=== PATIENT | female | born 1960 | race Caucasian/White ===

== ENCOUNTER 2016-05-09 20:19 | Emergency (ER) | payer OTHER ==
[~2016-05-09] VITALS: Ht 165.1 cm; Wt 91.2 kg
[2016-05-09] MEDS ORDERED: OMEP40CA2 PO (21:06)
[2016-05-09] MEDS ORDERED: LEVO125T3 PO (21:06)
[2016-05-09] MEDS ORDERED: ATOR1TAB21 PO (21:06)
[2016-05-09] MEDS ORDERED: TOUJ1.2I SUBQ (21:06)
[2016-05-09] MEDS ORDERED: METF1000 (21:06)
[2016-05-09] MEDS ORDERED: NS 1,000 ML IV ONE ×2 (22:30→23:45)
[2016-05-09 22:40] LABS: VENOUS BASE EXCESS 0.8 (-2.0-2.0); VENOUS O2 SATURATION 79.5 % (60.0-80.0); VENOUS PARTIAL PRESSURE O2 45.1 mmHg (30.0-50.0); VENOUS STANDARD HCO3 24.7 MEQ/L; VENOUS TOTAL CO2 27.6 MEQ/L (24.0-28.0)
[2016-05-09 22:42] LABS: BASO # 0.1 K/mm3 (0.0-0.2); BASO % 0.9 % (0.0-1.0); EOS # 0.1 K/mm3 (0.0-0.50); EOS % 1.7 % (0.0-3.0); LARGE UNSTAINED CELL # 0.1 K/mm3 (0.0-0.4); LARGE UNSTAINED CELL % 1.6 % (0.0-4.0); LYMPH # 2.2 K/mm3 (1.5-4.5); LYMPH % 27.6 % (24.0-44.0); MEAN CORPUSCULAR HEMOGLOBIN 29.9 pg (27.0-33.0); MEAN CORPUSCULAR HGB CONC 32.4 g/dl (32.0-36.5); MEAN CORPUSCULAR VOLUME 92.5 fl (80.0-96.0); MONO # 0.3 K/mm3 (0.0-0.8); MONO % 4.2 % (0.0-5.0); NEUTROPHILS % 64.1 % (36.0-66.0); PLATELET COUNT, AUTOMATED 203 k/mm3 (150-450); RED CELL DISTRIBUTION WIDTH 13.4 % (11.5-14.5); WHITE BLOOD COUNT 7.8 K/mm3 (4.0-10.0)
[2016-05-09 23:16] LABS: CREATININE FOR GFR 1.19 MG/DL (0.55-1.02); GLOMERULAR FILTRATION RATE 49.8 (>51); POTASSIUM SERUM 3.7 MEQ/L (3.5-5.1)
[2016-05-09] MEDS ORDERED: HumuLIN R (REGULAR) INSULIN (NovoLIN R) **100U/ML** PER UNIT IV ONE (23:45)
[2016-05-10] MEDS ORDERED: NOVOINJ12 SC (01:52)
[2016-05-10] MEDS ORDERED: [UNRECOGNIZED DRUG - CODE] XX (01:52)
[2016-05-10] MEDS ORDERED: HumaLOG INSULIN (NovoLOG) PER UNIT SC ONE (02:00)
[2016-05-10 02:06] VITALS: BP 130/74
== END 2016-05-10 03:01 | disposition home or self-care (01) ==
LOC: M ED 22:17
DX: E11.65 Type 2 diabetes mellitus with hyperglycemia (principal); Z79.4 Long term (current) use of insulin; Z88.2 Allergy status to sulfonamides; Z79.84 Long term (current) use of oral hypoglycemic drugs; Z79.899 Other long term (current) drug therapy; E26.9 Hyperaldosteronism, unspecified; E03.9 Hypothyroidism, unspecified; M19.90 Unspecified osteoarthritis, unspecified site

== ENCOUNTER → 2016-08-20 | Outpatient (CLI) | payer OTHER ==
[~2016-08-20] MED LIST: ATOR1TAB21 PO; LEVO125T3 PO; METF1000; NOVOINJ12 SC; OMEP40CA2 PO; TOUJ1.2I SUBQ; [UNRECOGNIZED DRUG - CODE] XX
--- NOTE | 2016-08-21 02:37 | REP ---
Clinical: Pain. Technique: AP, lateral, bilateral oblique views of the right foot. Findings: Orthopedic hardware including screw through the first metatarsal bone and orthopedic stable through the calcaneus identified without evidence for lucency or periosteal reaction to suggest inflammatory changes. The remainder of the examination appears relatively normal. Small amount of calcification identified in the plantar fascia adjacent to a moderate calcaneal heal spur. Impression: 1. Orthopedic hardware appears normal. 2. Moderate calcaneal heal spur and small amount of calcification in the plantar fascia may reflect underlying degenerative change/ plantar fasciitis. Signed by Dave Us MD 08/21/2016 02:29 A
== END ==
LOC: M RAD 14:36
PROVIDERS: ATTEND Family Medicine Addiction Medicine
DX: M77.31 Calcaneal spur, right foot (principal); M79.671 Pain in right foot; Z98.890 Other specified postprocedural states

== ENCOUNTER 2016-09-11 17:02 | Emergency (ER) | payer OTHER ==
[~2016-09-11] VITALS: Ht 162.6 cm; Wt 98.4 kg
[~2016-09-11 17:02] MED LIST changes: -LEVO125T3 PO; +LEVO125T4 PO; -METF1000; +METF10004
[2016-09-11] MEDS ORDERED: ROPI0.25 PO (17:15)
[2016-09-11] MEDS ORDERED: TRAZ50TA11 PO (17:15)
[2016-09-11] MEDS ORDERED: NAPR500T PO (18:43)
[2016-09-11 18:58] VITALS: BP 140/90
--- NOTE | 2016-09-11 19:00 | REP ---
RIGHT KNEE, FIVE VIEWS: HISTORY: Pain. There is no acute fracture or dislocation. There is narrowing of the joint spaces with associated osteophyte formation. There is slight lateral subluxation of the patella. IMPRESSION: Degenerative change as described above. Signed by Ney Benjamin MD 09/11/2016 07:19 P
[2017-01-08] MEDS ORDERED: CLIN150C14 PO (15:59)
== END 2016-09-11 19:04 | disposition home or self-care (01) ==
LOC: M ED 17:02
DX: S83.91XA Sprain of unspecified site of right knee, initial encounter (principal); E11.9 Type 2 diabetes mellitus without complications; K21.9 Gastro-esophageal reflux disease without esophagitis; X58.XXXA Exposure to other specified factors, initial encounter; Y92.89 Other specified places as the place of occurrence of the external cause; Y93.89 Activity, other specified; Y99.9 Unspecified external cause status

== ENCOUNTER 2016-09-28 18:23 | Emergency (ER) | payer OTHER ==
[~2016-09-28] VITALS: Ht 162.6 cm; Wt 101.6 kg
[~2016-09-28 18:23] MED LIST changes: +NAPR500T PO; +ROPI0.25 PO; +TRAZ50TA11 PO
[2016-09-28 19:01] LABS: BASO % 0.2 % (0.0-1.0); EOS # 0.2 K/mm3 (0.0-0.50); EOS % 2.1 % (0.0-3.0); LARGE UNSTAINED CELL % 0.3 % (0.0-4.0); LYMPH # 0.6 K/mm3 (1.5-4.5); LYMPH % 4.7 % (24.0-44.0); MEAN CORPUSCULAR HEMOGLOBIN 29.6 pg (27.0-33.0); MEAN CORPUSCULAR HGB CONC 33.5 g/dl (32.0-36.5); MEAN CORPUSCULAR VOLUME 88.6 fl (80.0-96.0); MONO # 0.2 K/mm3 (0.0-0.8); MONO % 1.7 % (0.0-5.0); NEUTROPHILS # 10.6 K/mm3 (1.8-7.7); NEUTROPHILS % 91.1 % (36.0-66.0); PLATELET COUNT, AUTOMATED 288 k/mm3 (150-450); WHITE BLOOD COUNT 11.6 K/mm3 (4.0-10.0)
[2016-09-28 19:28] LABS: ALBUMIN 3.6 GM/DL (3.2-5.2); ALBUMIN/GLOBULIN RATIO 1.03 (1.00-1.93); ALKALINE PHOSPHATASE 95 U/L (45-117); ALT/SGPT 14 U/L (12-78); ANION GAP 9 MEQ/L (8-16); AST/SGOT 10 U/L (15-37); BILIRUBIN,DIRECT 0.2 MG/DL (0.0-0.2); BILIRUBIN,TOTAL 0.6 MG/DL (0.2-1.0); BLOOD UREA NITROGEN 24 MG/DL (7-18); CALCIUM LEVEL 8.9 MG/DL (8.5-10.1); CARBON DIOXIDE LEVEL 24 MEQ/L (21-32); CHLORIDE LEVEL 103 MEQ/L (98-107); CREATININE FOR GFR 0.95 MG/DL (0.55-1.02); GLOMERULAR FILTRATION RATE > 60.0 (>51); GLUCOSE, FASTING 169 MG/DL (70-105); POTASSIUM SERUM 3.7 MEQ/L (3.5-5.1); SODIUM LEVEL 136 MEQ/L (136-145); TOTAL PROTEIN 7.1 GM/DL (6.4-8.2)
[2016-09-28] MEDS ORDERED: GI COCKTAIL 50ML BTL(HYOSCYAMINE/MAALOX/LIDOCAINE VISCOUS)(1:3:1) PO ONE (20:00)
--- NOTE | 2016-09-28 20:13 | ECGEPIP ---
Stationary ECG Study [facility] - ED Test Date: 2016-09-28 Pat Name: LUIS CUMMINGS Department: Room: - Gender: F Helper Shear Operator: CamaraB: 1960 Requested By: Adelaide Roberto Order Number: [id number] Reading MD: Adelaide Roberto Measurements Intervals [place] Rate: 98 P: 37 WV: 120 QRS: -60 QRSD: 84 T: 15 QT: 351 QTc: 449 Interpretive Statements SINUS RHYTHM LOW QRS VOLTAGE IN PRECORDIAL LEADS POSSIBLE RIGHT VENTRICULAR CONDUCTION DELAY LEFT ANTERIOR FASCICULAR BLOCK POSSIBLE ANTERIOR MYOCARDIAL INFARCTION, OF INDETERMINATE AGE INCREASED RATE 07/18/12 Electronically Signed On 09-28-2016 20:12:55 EDT by Adelaide Roberto
[2016-09-28] MEDS ORDERED: ONDANSETRON 4MG/2ML VIAL (J2405) IV ONE (21:00)
[2016-09-28] MEDS ORDERED: ONDANSETRON 4MG/2ML VIAL (J2405) As Ordered ONE (21:02)
[2016-09-28] MEDS ORDERED: ZOFR4TAB3 PO (21:34)
[2016-09-28 22:03] VITALS: BP 127/60
--- NOTE | 2016-09-29 07:57 | REP ---
SINGLE AP CHEST: COMPARISON: 07/19/2012. There is no evidence of acute infiltrate. No pleural effusion is seen. The heart is normal in size. The mediastinal silhouette is unremarkable. The visualized osseous structures are intact. IMPRESSION: No acute pulmonary disease. Signed by Sudeep Quiroga MD 09/29/2016 07:24 P
[2017-01-08] MEDS ORDERED: CLIN150C14 PO (15:59)
== END 2016-09-28 22:12 | disposition home or self-care (01) ==
LOC: M ED 18:23
DX: K21.9 Gastro-esophageal reflux disease without esophagitis (principal); E11.9 Type 2 diabetes mellitus without complications; Z88.2 Allergy status to sulfonamides; Z79.4 Long term (current) use of insulin; Z79.899 Other long term (current) drug therapy

== ENCOUNTER → 2016-12-04 | Outpatient (REF) | payer OTHER ==
[~2016-12-04] MED LIST changes: +CLIN150C14 PO; +ZOFR4TAB3 PO
[2016-12-04 19:20] LABS: ALBUMIN 3.2 GM/DL (3.2-5.2); ALBUMIN/GLOBULIN RATIO 0.94 (1.00-1.93); ALKALINE PHOSPHATASE 111 U/L (45-117); ALT/SGPT 17 U/L (12-78); ANION GAP 5 MEQ/L (8-16); AST/SGOT 15 U/L (15-37); BILIRUBIN,TOTAL 0.4 MG/DL (0.2-1.0); BLOOD UREA NITROGEN 11 MG/DL (7-18); CALCIUM LEVEL 8.7 MG/DL (8.5-10.1); CARBON DIOXIDE LEVEL 28 MEQ/L (21-32); CHLORIDE LEVEL 104 MEQ/L (98-107); CHOLESTEROL LEVEL 141 MG/DL (<200); CREATININE FOR GFR 0.88 MG/DL (0.55-1.02); GLOMERULAR FILTRATION RATE > 60.0 (>51); GLUCOSE, FASTING 148 MG/DL (70-105); POTASSIUM SERUM 3.8 MEQ/L (3.5-5.1); SODIUM LEVEL 137 MEQ/L (136-145); TOTAL PROTEIN 6.6 GM/DL (6.4-8.2); TRIGLYCERIDES LEVEL 97 MG/DL (<150)
== END ==
LOC: M LAB REF 16:21
PROVIDERS: ATTEND Family Medicine Addiction Medicine
DX: E11.9 Type 2 diabetes mellitus without complications (principal)

== ENCOUNTER → 2017-01-22 | Outpatient (CLI) | payer OTHER ==
--- NOTE | 2017-01-22 14:15 | REPMRS ---
Patient History The patient states she has not had a clinical breast exam in over a year. Patient had first child at age 33. Family history of prostate cancer in father and colorectal cancer in sister at age 56. Taking unspecified hormones for 43 years. Digital Mammo Screening Bilat: January 22, 2017 - Exam #: [id number] Bilateral CC and MLO view(s) were taken. Technologist: Katina Pham, Technologist Prior study comparison: 2016, digital bilateral screening mammo. FINDINGS: There are scattered fibroglandular densities. There is a fairly symmetric fibroglandular pattern in both breasts. There has been no interval development of masses, areas of architectural distortion or clusters of microcalcifications typical of malignancy. ASSESSMENT: BI-RADS/ACR category 2 mammogram. Benign finding(s). Recommendation Routine screening mammogram of both breasts in 1 year (for women over age 40). This mammogram was interpreted with the aid of an FDA-approved computer-aided dectection system. Electronically Signed By: Sudeep Quiroga MD 01/22/17 [id number]
== END ==
LOC: M RAD 13:21
PROVIDERS: ATTEND Family Medicine Addiction Medicine
DX: Z12.31 Encounter for screening mammogram for malignant neoplasm of breast (principal)

== ENCOUNTER → 2017-04-04 | Outpatient (CLI) | payer OTHER | LOC: M RAD 12:52 | DX: E04.9 Nontoxic goiter, unspecified (principal) | CPT/HCPCS: 76536 ==

== ENCOUNTER → 2017-04-18 | Outpatient (CLI) | payer OTHER | LOC: M RAD 07:35 | DX: E04.9 Nontoxic goiter, unspecified (principal) | CPT/HCPCS: 70490 ==

== ENCOUNTER → 2017-05-06 | Outpatient (REF) | payer OTHER, MEDICAID ==
[2017-05-06 19:55] LABS: ALBUMIN 3.7 GM/DL (3.2-5.2); ALBUMIN/GLOBULIN RATIO 1.23 (1.00-1.93); ALKALINE PHOSPHATASE 140 U/L (45-117); ALT/SGPT 17 U/L (12-78); ANION GAP 9 MEQ/L (8-16); AST/SGOT 11 U/L (7-37); BILIRUBIN,TOTAL 0.4 MG/DL (0.2-1.0); BLOOD UREA NITROGEN 15 MG/DL (7-18); CALCIUM LEVEL 8.5 MG/DL (8.5-10.1); CARBON DIOXIDE LEVEL 26 MEQ/L (21-32); CHLORIDE LEVEL 103 MEQ/L (98-107); CHOLESTEROL LEVEL 156 MG/DL (<200); CHOLESTEROL RISK RATIO 4.105 (<5); CREATININE FOR GFR 1.04 MG/DL (0.55-1.30); GLOMERULAR FILTRATION RATE 57.9 (>51); HDL CHOLESTEROL 38 MG/DL (>40); NON-HDL-C 118 MG/DL; POTASSIUM SERUM 3.8 MEQ/L (3.5-5.1); SODIUM LEVEL 138 MEQ/L (136-145); THYROXINE (T4) 10.8 UG/DL (4.5-12.0); TOTAL PROTEIN 6.7 GM/DL (6.4-8.2); TRIGLYCERIDES LEVEL 175 MG/DL (<150)
[2017-05-06 20:02] LABS: GLUCOSE, FASTING 488 MG/DL (70-100)
[2017-05-06 21:22] LABS: ESTIMATED AVERAGE GLUCOSE 280 MG/DL (60-110); HEMOGLOBIN A1c 11.4 %
== END ==
LOC: M LAB REF 17:43
DX: E11.9 Type 2 diabetes mellitus without complications (principal); E04.9 Nontoxic goiter, unspecified

== ENCOUNTER 2017-06-01 21:19 | Emergency (ER) | payer OTHER, MEDICAID ==
[2017-06-01 23:07] LABS: INFLUENZA A AMPLIFICATION NEGATIVE (NEGATIVE); INFLUENZA B AMPLIFICATION NEGATIVE (NEGATIVE)
== END 2017-06-02 00:11 | disposition home or self-care (01) ==
LOC: M ED 06-02 00:11
DX: J02.9 Acute pharyngitis, unspecified (principal); I10 Essential (primary) hypertension; E07.9 Disorder of thyroid, unspecified; E78.9 Disorder of lipoprotein metabolism, unspecified; K21.9 Gastro-esophageal reflux disease without esophagitis; Z79.899 Other long term (current) drug therapy; Z79.890 Hormone replacement therapy; Z79.4 Long term (current) use of insulin; Z88.2 Allergy status to sulfonamides
CPT/HCPCS: 71046

== ENCOUNTER 2017-06-24 12:06 | Inpatient (IN) | payer OTHER, MEDICAID ==
[2017-06-24 12:38] LABS: BASO % 0.5 % (0.0-1.0); EOS # 0.2 10^3/uL (0.0-0.50); EOS % 2.1 % (0.0-3.0); HEMATOCRIT 41.5 % (36.0-47.0); HEMOGLOBIN 13.6 g/dl (12.0-15.5); IMMATURE GRANULOCYTE % 0.4 % (0-3.0); LYMPH # 1.4 10^3/uL (1.5-4.5); LYMPH % 17.6 % (24.0-44.0); MEAN CORPUSCULAR HEMOGLOBIN 28.4 pg (27.0-33.0); MEAN CORPUSCULAR HGB CONC 32.8 g/dl (32.0-36.5); MEAN CORPUSCULAR VOLUME 86.6 fl (80.0-96.0); MONO # 0.4 10^3/uL (0.0-0.8); MONO % 5.7 % (0.0-5.0); NEUTROPHILS # 5.7 10^3/uL (1.8-7.7); NEUTROPHILS % 73.7 % (36.0-66.0); PLATELET COUNT, AUTOMATED 233 10^3/uL (150-450); RED BLOOD COUNT 4.79 10^6/uL (4.00-5.40); RED CELL DISTRIBUTION WIDTH 14.3 % (11.5-14.5); WHITE BLOOD COUNT 7.8 10^3/uL (4.0-10.0)
[2017-06-24 13:09] LABS: ALBUMIN 3.2 GM/DL (3.2-5.2); ALBUMIN/GLOBULIN RATIO 0.97 (1.00-1.93); ALKALINE PHOSPHATASE 131 U/L (45-117); ALT/SGPT 16 U/L (12-78); ANION GAP 11 MEQ/L (8-16); AST/SGOT 11 U/L (7-37); BILIRUBIN,DIRECT 0.1 MG/DL (0.0-0.2); BILIRUBIN,TOTAL 0.6 MG/DL (0.2-1.0); BLOOD UREA NITROGEN 10 MG/DL (7-18); CALCIUM LEVEL 8.5 MG/DL (8.5-10.1); CARBON DIOXIDE LEVEL 23 MEQ/L (21-32); CHLORIDE LEVEL 106 MEQ/L (98-107); CPK CREATINE PHOSPHOKINASE 35 U/L (26-192); GLUCOSE, FASTING 296 MG/DL (70-100); POTASSIUM SERUM 3.7 MEQ/L (3.5-5.1); SODIUM LEVEL 140 MEQ/L (136-145); TOTAL PROTEIN 6.5 GM/DL (6.4-8.2); TROPONIN I < 0.02 NG/ML (< 0.10)
[2017-06-24 13:14] LABS: CK-MB VALUE MASS < 1.0 NG/ML (<3.6); CREATININE FOR GFR 1.06 MG/DL (0.55-1.30); GLOMERULAR FILTRATION RATE 56.7 (>51); MB/CK RELATIVE INDEX 2.85 (< OR =4)
[2017-06-24] MEDS ORDERED: ISOVUE-370 76% 100ML VIAL (Q9967) As Ordered (14:59)
[2017-06-24] MEDS ORDERED: GLUCOSE 4 GM CHEW TABLET PO (16:15)
[2017-06-24] MEDS ORDERED: GLUCAGON FOR INJ 1 MG VIAL (J1610) SC (16:15)
[2017-06-24] MEDS ORDERED: DEXTROSE 50% 50 ML SYRINGE IV (16:15)
[2017-06-24] MEDS ORDERED: ACETAMINOPHEN TAB 650MG DOSE (2X325MG) PO (16:45)
[2017-06-24] MEDS ORDERED: ONDANSETRON 4MG/2ML VIAL (J2405) IV (16:45)
[2017-06-24 17:00] LABS: FREE THYROXINE INDEX 3.6 % (1.3-4.8); NT-PRO BNP 205 PG/ML (<125); T UPTAKE 33 % (30-39); THYROXINE (T4) 10.8 UG/DL (4.5-12.0)
[2017-06-24] MEDS: HumaLOG INSULIN (NovoLOG) PER UNIT SC ×2 (17:30→21:00)
[2017-06-24] MEDS: APIXABAN 5 MG TAB (ELIQUIS) PO ×2 (17:54→21:26)
[2017-06-24 18:31] LABS: CK-MB VALUE MASS < 1.0 NG/ML (<3.6); CPK CREATINE PHOSPHOKINASE 26 U/L (26-192); MB/CK RELATIVE INDEX 3.84 (< OR =4); TROPONIN I < 0.02 NG/ML (< 0.10)
[2017-06-24 18:38] LABS: INR 1.04; PROTHROMBIN TIME 13.7 SECONDS (12.4-14.5)
[2017-06-24 18:39] LABS: PARTIAL THROMBOPLASTIN TIME 26.7 SECONDS (26.8-37.9)
[2017-06-24] MEDS ORDERED: SLF 3 ML SYR IV (19:00)
[2017-06-24 21:13] LABS: BEDSIDE GLUCOSE 197 MG/DL (70-105)
[2017-06-24] MEDS: rOPINIRole 0.25 MG TAB(REQUIP) PO (21:26)
[2017-06-24] MEDS: traZODone 50 MG TAB PO (21:26)
[2017-06-24] MEDS: SENOKOT S TAB PO (21:26)
[2017-06-24] MEDS: LEVEMIR (INSULIN DETEMIR) 1 UNITS/0.01ML SC (21:27)
[2017-06-24] MEDS: SLF 3 ML SYR IV (22:00)
[2017-06-24 22:10] LABS: BEDSIDE GLUCOSE 203 MG/DL (70-105)
[2017-06-25] MEDS: LEVOTHYROXINE 125MCG TABLET (0.125MG) PO (05:13)
[2017-06-25] MEDS: SLF 3 ML SYR IV ×3 (05:14→21:39)
[2017-06-25 06:11] LABS: HEMATOCRIT 39.3 % (36.0-47.0); HEMOGLOBIN 12.9 g/dl (12.0-15.5); MEAN CORPUSCULAR HEMOGLOBIN 28.4 pg (27.0-33.0); MEAN CORPUSCULAR HGB CONC 32.8 g/dl (32.0-36.5); MEAN CORPUSCULAR VOLUME 86.6 fl (80.0-96.0); PLATELET COUNT, AUTOMATED 194 10^3/uL (150-450); RED BLOOD COUNT 4.54 10^6/uL (4.00-5.40); RED CELL DISTRIBUTION WIDTH 14.3 % (11.5-14.5); WHITE BLOOD COUNT 7.5 10^3/uL (4.0-10.0)
[2017-06-25 06:21] LABS: ANION GAP 7 MEQ/L (8-16); BLOOD UREA NITROGEN 13 MG/DL (7-18); CALCIUM LEVEL 8.4 MG/DL (8.5-10.1); CARBON DIOXIDE LEVEL 25 MEQ/L (21-32); CHLORIDE LEVEL 109 MEQ/L (98-107); CREATININE FOR GFR 0.88 MG/DL (0.55-1.30); GLOMERULAR FILTRATION RATE > 60.0 (>51); GLUCOSE, FASTING 212 MG/DL (70-100); MAGNESIUM LEVEL 1.6 MG/DL (1.8-2.4); POTASSIUM SERUM 3.5 MEQ/L (3.5-5.1); SODIUM LEVEL 141 MEQ/L (136-145)
[2017-06-25] MEDS: ATORVASTATIN 20 MG TAB PO (08:45)
[2017-06-25] MEDS: MAG SULF 1GM/100ML (MAG RUN) 1 GM in APPROPRIATE DILUENT 1 EA IV ×2 (08:45→10:14)
[2017-06-25] MEDS: HumaLOG INSULIN (NovoLOG) PER UNIT SC ×4 (08:45→20:49)
[2017-06-25] MEDS: APIXABAN 5 MG TAB (ELIQUIS) PO ×2 (08:46→20:50)
[2017-06-25] MEDS: SENOKOT S TAB PO ×2 (08:46→20:50)
[2017-06-25] MEDS: OMEPRAZOLE 20 MG CAP PO (08:46)
[2017-06-25 11:55] LABS: BEDSIDE GLUCOSE 368 MG/DL (70-105)
[2017-06-25 17:28] LABS: BEDSIDE GLUCOSE 301 MG/DL (70-105)
[2017-06-25] MEDS: LEVEMIR (INSULIN DETEMIR) 1 UNITS/0.01ML SC (20:49)
[2017-06-25] MEDS: rOPINIRole 0.25 MG TAB(REQUIP) PO (20:50)
[2017-06-25] MEDS: traZODone 50 MG TAB PO (20:50)
[2017-06-25 20:59] LABS: BEDSIDE GLUCOSE 327 MG/DL (70-105)
[2017-06-26 05:57] LABS: HEMATOCRIT 36.5 % (36.0-47.0); HEMOGLOBIN 12.1 g/dl (12.0-15.5); MEAN CORPUSCULAR HEMOGLOBIN 28.5 pg (27.0-33.0); MEAN CORPUSCULAR HGB CONC 33.2 g/dl (32.0-36.5); MEAN CORPUSCULAR VOLUME 85.9 fl (80.0-96.0); PLATELET COUNT, AUTOMATED 182 10^3/uL (150-450); RED BLOOD COUNT 4.25 10^6/uL (4.00-5.40); RED CELL DISTRIBUTION WIDTH 14.3 % (11.5-14.5); WHITE BLOOD COUNT 6.6 10^3/uL (4.0-10.0)
[2017-06-26] MEDS: LEVOTHYROXINE 125MCG TABLET (0.125MG) PO (06:03)
[2017-06-26] MEDS: SLF 3 ML SYR IV ×3 (06:03→21:40)
[2017-06-26 06:19] LABS: ANION GAP 6 MEQ/L (8-16); BLOOD UREA NITROGEN 13 MG/DL (7-18); CALCIUM LEVEL 8.1 MG/DL (8.5-10.1); CARBON DIOXIDE LEVEL 27 MEQ/L (21-32); CHLORIDE LEVEL 108 MEQ/L (98-107); CREATININE FOR GFR 0.94 MG/DL (0.55-1.30); GLOMERULAR FILTRATION RATE > 60.0 (>51); GLUCOSE, FASTING 254 MG/DL (70-100); MAGNESIUM LEVEL 1.9 MG/DL (1.8-2.4); POTASSIUM SERUM 3.6 MEQ/L (3.5-5.1); SODIUM LEVEL 141 MEQ/L (136-145)
[2017-06-26] MEDS: SENOKOT S TAB PO ×2 (08:25→21:40)
[2017-06-26] MEDS: OMEPRAZOLE 20 MG CAP PO (08:25)
[2017-06-26] MEDS: HumaLOG INSULIN (NovoLOG) PER UNIT SC ×4 (08:25→21:39)
[2017-06-26] MEDS: ATORVASTATIN 20 MG TAB PO (08:25)
[2017-06-26] MEDS: APIXABAN 5 MG TAB (ELIQUIS) PO ×2 (08:25→21:40)
[2017-06-26 11:53] LABS: BEDSIDE GLUCOSE 263 MG/DL (70-105)
[2017-06-26 16:49] LABS: BEDSIDE GLUCOSE 277 MG/DL (70-105)
[2017-06-26 21:31] LABS: BEDSIDE GLUCOSE 300 MG/DL (70-105)
[2017-06-26] MEDS: LEVEMIR (INSULIN DETEMIR) 1 UNITS/0.01ML SC (21:39)
[2017-06-26] MEDS: rOPINIRole 0.25 MG TAB(REQUIP) PO (21:40)
[2017-06-26] MEDS: traZODone 50 MG TAB PO (21:40)
[2017-06-27 00:06] LABS: ANTI THROMBIN 3 ANTIGEN IMMUNO 85 % (72-124); ANTI THROMBIN 3 FUNCT ACTIVITY 97 % (75-135); PROTEIN C FUNCTIONAL ACTIVITY 133 % (73-180); PROTEIN S FUNCTIONAL ACTIVITY 103 % (63-140)
[2017-06-27] MEDS: SLF 3 ML SYR IV (05:01)
[2017-06-27] MEDS: LEVOTHYROXINE 125MCG TABLET (0.125MG) PO (05:01)
[2017-06-27 05:51] LABS: HEMATOCRIT 36.2 % (36.0-47.0); HEMOGLOBIN 11.9 g/dl (12.0-15.5); MEAN CORPUSCULAR HGB CONC 32.9 g/dl (32.0-36.5); MEAN CORPUSCULAR VOLUME 85.2 fl (80.0-96.0); PLATELET COUNT, AUTOMATED 172 10^3/uL (150-450); RED BLOOD COUNT 4.25 10^6/uL (4.00-5.40); RED CELL DISTRIBUTION WIDTH 14.4 % (11.5-14.5); WHITE BLOOD COUNT 6.2 10^3/uL (4.0-10.0)
[2017-06-27 06:05] LABS: ANION GAP 5 MEQ/L (8-16); BLOOD UREA NITROGEN 11 MG/DL (7-18); CALCIUM LEVEL 8.1 MG/DL (8.5-10.1); CARBON DIOXIDE LEVEL 26 MEQ/L (21-32); CHLORIDE LEVEL 107 MEQ/L (98-107); CREATININE FOR GFR 0.77 MG/DL (0.55-1.30); GLOMERULAR FILTRATION RATE > 60.0 (>51); GLUCOSE, FASTING 231 MG/DL (70-100); MAGNESIUM LEVEL 1.9 MG/DL (1.8-2.4); POTASSIUM SERUM 3.4 MEQ/L (3.5-5.1); SODIUM LEVEL 138 MEQ/L (136-145)
[2017-06-27] MEDS: POTASSIUM CHLORIDE 10 MEQ SR TABLET PO ×2 (06:35→08:39)
[2017-06-27] MEDS ORDERED: POTASSIUM CHLORIDE 10 MEQ SR TABLET PO (06:45)
[2017-06-27] MEDS: HumaLOG INSULIN (NovoLOG) PER UNIT SC ×2 (08:38→12:51)
[2017-06-27] MEDS: APIXABAN 5 MG TAB (ELIQUIS) PO (08:39)
[2017-06-27] MEDS: SENOKOT S TAB PO (08:39)
[2017-06-27] MEDS: OMEPRAZOLE 20 MG CAP PO (08:39)
[2017-06-27] MEDS: ATORVASTATIN 20 MG TAB PO (08:39)
[2017-06-27 13:16] LABS: BEDSIDE GLUCOSE 280 MG/DL (70-105)
[2017-07-01 10:43] LABS: DRVV SCREEN 44.7 SEC
== END 2017-06-27 16:22 | disposition home or self-care (01) | DRG 134 ==
LOC: M PCU 16:35 → M ED 12:06 → M ED INP 16:35 → M PCU 18:28
DX: I26.99 Other pulmonary embolism without acute cor pulmonale (principal); E83.42 Hypomagnesemia; I10 Essential (primary) hypertension; M79.7 Fibromyalgia; E11.9 Type 2 diabetes mellitus without complications; G25.81 Restless legs syndrome; K21.9 Gastro-esophageal reflux disease without esophagitis; Z90.49 Acquired absence of other specified parts of digestive tract; E89.0 Postprocedural hypothyroidism; Z79.4 Long term (current) use of insulin; Z79.899 Other long term (current) drug therapy; Z88.2 Allergy status to sulfonamides

== ENCOUNTER 2017-07-24 14:18 | Emergency (ER) | payer OTHER ==
[2017-07-24] MEDS: KETOROLAC 30 MG/ML VIAL (J1885) IM ×2 (17:02)
== END 2017-07-24 17:58 | disposition home or self-care (01) ==
LOC: M ED 14:18
DX: M76.62 Achilles tendinitis, left leg (principal); M25.772 Osteophyte, left ankle; E11.9 Type 2 diabetes mellitus without complications; I10 Essential (primary) hypertension; M79.7 Fibromyalgia; E03.9 Hypothyroidism, unspecified; Z79.4 Long term (current) use of insulin; Z79.899 Other long term (current) drug therapy; Z88.2 Allergy status to sulfonamides
CPT/HCPCS: J1885

== ENCOUNTER 2017-09-15 14:11 | Emergency (ER) | payer MEDICARE, MEDICAID, OTHER ==
[2017-09-15 15:11] LABS: BASO % 0.7 % (0.0-1.0); EOS # 0.1 10^3/uL (0.0-0.50); IMMATURE GRANULOCYTE % 0.2 % (0-3.0); LYMPH # 1.3 10^3/uL (1.5-4.5); LYMPH % 21.2 % (24.0-44.0); MEAN CORPUSCULAR HEMOGLOBIN 28.2 pg (27.0-33.0); MEAN CORPUSCULAR HGB CONC 32.6 g/dl (32.0-36.5); MEAN CORPUSCULAR VOLUME 86.5 fl (80.0-96.0); MONO # 0.4 10^3/uL (0.0-0.8); MONO % 6.1 % (0.0-5.0); NEUTROPHILS # 4.2 10^3/uL (1.8-7.7); NEUTROPHILS % 70.8 % (36.0-66.0); PLATELET COUNT, AUTOMATED 200 10^3/uL (150-450); RED BLOOD COUNT 4.97 10^6/uL (4.00-5.40); RED CELL DISTRIBUTION WIDTH 14.4 % (11.5-14.5); WHITE BLOOD COUNT 5.9 10^3/uL (4.0-10.0)
[2017-09-15] MEDS: NS 1,000 ML IV ×2 (15:27→17:15)
[2017-09-15 15:29] LABS: ALBUMIN 3.5 GM/DL (3.2-5.2); ALBUMIN/GLOBULIN RATIO 1.17 (1.00-1.93); ALKALINE PHOSPHATASE 125 U/L (45-117); ALT/SGPT 22 U/L (12-78); ANION GAP 12 MEQ/L (8-16); AST/SGOT 13 U/L (7-37); BILIRUBIN,DIRECT 0.2 MG/DL (0.0-0.2); BILIRUBIN,TOTAL 0.6 MG/DL (0.2-1.0); BLOOD UREA NITROGEN 8 MG/DL (7-18); CALCIUM LEVEL 8.3 MG/DL (8.5-10.1); CARBON DIOXIDE LEVEL 22 MEQ/L (21-32); CHLORIDE LEVEL 102 MEQ/L (98-107); CREATININE FOR GFR 1.29 MG/DL (0.55-1.30); LIPASE 164 U/L (73-393); POTASSIUM SERUM 3.7 MEQ/L (3.5-5.1); SODIUM LEVEL 136 MEQ/L (136-145); TOTAL PROTEIN 6.5 GM/DL (6.4-8.2)
[2017-09-15 15:37] LABS: GLUCOSE, FASTING 661 MG/DL (70-100)
[2017-09-15 15:46] LABS: ESTIMATED AVERAGE GLUCOSE 278 MG/DL (60-110); HEMOGLOBIN A1c 11.3 %
[2017-09-15] MEDS: HumuLIN R (REGULAR) INSULIN (NovoLIN R) **100U/ML** PER UNIT IV (15:59)
[2017-09-15 16:42] LABS: BEDSIDE GLUCOSE 421 MG/DL (70-105)
[2017-09-15 19:20] LABS: BEDSIDE GLUCOSE 320 MG/DL (70-105)
[2017-09-15] MEDS: metFORMIN (GLUCOPHAGE) 1000 MG TABLET PO (19:32)
[2017-09-16 09:10] LABS: BEDSIDE GLUCOSE > 600 MG/DL (70-105)
== END 2017-09-15 19:33 | disposition home or self-care (01) ==
LOC: M ED 14:11
DX: E11.65 Type 2 diabetes mellitus with hyperglycemia (principal); Z91.120 Patient's intentional underdosing of medication regimen due to financial hardship; I10 Essential (primary) hypertension; E07.9 Disorder of thyroid, unspecified; M79.7 Fibromyalgia; K21.9 Gastro-esophageal reflux disease without esophagitis; Z88.2 Allergy status to sulfonamides; Z79.899 Other long term (current) drug therapy; Z79.4 Long term (current) use of insulin; Z79.01 Long term (current) use of anticoagulants
CPT/HCPCS: 83690

== ENCOUNTER 2017-09-24 16:02 | Emergency (ER) | payer MEDICARE, MEDICAID ==
[2017-09-24] MEDS: NORCO, ANEXSIA 5/325MG TABLET (HYDROcodone/ACETAMINOPHEN) PO (16:51)
== END 2017-09-24 16:58 | disposition home or self-care (01) ==
LOC: M ED 16:02
DX: L03.011 Cellulitis of right finger (principal); E11.9 Type 2 diabetes mellitus without complications; I10 Essential (primary) hypertension; E78.5 Hyperlipidemia, unspecified; G25.81 Restless legs syndrome; M79.7 Fibromyalgia; K21.9 Gastro-esophageal reflux disease without esophagitis; E03.9 Hypothyroidism, unspecified; Z79.01 Long term (current) use of anticoagulants; Z79.4 Long term (current) use of insulin; Z79.899 Other long term (current) drug therapy; Z88.2 Allergy status to sulfonamides
CPT/HCPCS: 87186

== ENCOUNTER 2017-11-09 14:29 | Emergency (ER) | payer MEDICARE, MEDICAID ==
[2017-11-09 16:34] LABS: HEMATOCRIT 41.3 % (36.0-47.0); HEMOGLOBIN 13.5 g/dl (12.0-15.5); MEAN CORPUSCULAR HEMOGLOBIN 28.4 pg (27.0-33.0); MEAN CORPUSCULAR HGB CONC 32.7 g/dl (32.0-36.5); MEAN CORPUSCULAR VOLUME 86.9 fl (80.0-96.0); PLATELET COUNT, AUTOMATED 202 10^3/uL (150-450); RED BLOOD COUNT 4.75 10^6/uL (4.00-5.40); RED CELL DISTRIBUTION WIDTH 14.2 % (11.5-14.5); WHITE BLOOD COUNT 12.6 10^3/uL (4.0-10.0)
[2017-11-09 16:52] LABS: ANION GAP 8 MEQ/L (8-16); BLOOD UREA NITROGEN 8 MG/DL (7-18); CALCIUM LEVEL 8.6 MG/DL (8.5-10.1); CARBON DIOXIDE LEVEL 26 MEQ/L (21-32); CHLORIDE LEVEL 105 MEQ/L (98-107); CREATININE FOR GFR 1.04 MG/DL (0.55-1.30); GLOMERULAR FILTRATION RATE 57.7 (>51); GLUCOSE, FASTING 296 MG/DL (70-100); POTASSIUM SERUM 3.6 MEQ/L (3.5-5.1); SODIUM LEVEL 139 MEQ/L (136-145)
[2017-11-09] MEDS: CEFTAROLINE FOSAMIL 600 MG in D5W MINI-BAG PLUS 50 ML IV (17:20)
[2017-11-09] MEDS: PERCOCET 5MG/325MG TAB PO (17:20)
[2017-11-09] MEDS: NORCO 5/325MG TABLET (BULK FOR ED) PO (18:37)
== END 2017-11-09 18:39 | disposition home or self-care (01) ==
LOC: M ED 14:29
DX: L03.312 Cellulitis of back [any part except buttock and flank] (principal); E11.9 Type 2 diabetes mellitus without complications; I10 Essential (primary) hypertension; K21.9 Gastro-esophageal reflux disease without esophagitis
CPT/HCPCS: J0712

== ENCOUNTER 2018-06-16 20:06 | Emergency (ER) | payer MEDICARE, MEDICAID ==
[~2018-06-16] VITALS: Ht 167.6 cm; Wt 90.9 kg
[~2018-06-16 20:06] MED LIST changes: +ATEN50TA2 PO; +DOXY-350 PO; +ELIQ5TAB PO; +INSUR SC; +KEFL500C17 PO; +LEVO125T41 PO; +METF10004 PO; +NAPR-837 PO; -NAPR500T PO; +OXYC1TAB23 PO; -ROPI0.25 PO; +ROPI0.253 PO; +TOUJ1.2I SC; +TRAZ-160 PO; -TRAZ50TA11 PO; +ZOFR4TAB14 PO; -ZOFR4TAB3 PO
[2018-06-16 21:22] LABS: BASO % 0.5 % (0.0-1.0); EOS # 0.1 10^3/uL (0.0-0.50); EOS % 1.3 % (0.0-3.0); HEMATOCRIT 41.9 % (36.0-47.0); HEMOGLOBIN 13.7 g/dl (12.0-15.5); LYMPH # 1.8 10^3/uL (1.5-4.5); LYMPH % 28.1 % (24.0-44.0); MEAN CORPUSCULAR HEMOGLOBIN 30.2 pg (27.0-33.0); MEAN CORPUSCULAR HGB CONC 32.7 g/dl (32.0-36.5); MEAN CORPUSCULAR VOLUME 92.5 fl (80.0-96.0); MONO # 0.4 10^3/uL (0.0-0.8); MONO % 5.9 % (0.0-5.0); PLATELET COUNT, AUTOMATED 201 10^3/uL (150-450); RED BLOOD COUNT 4.53 10^6/uL (4.00-5.40); WHITE BLOOD COUNT 6.3 10^3/uL (4.0-10.0)
[2018-06-16 21:52] LABS: CALCIUM LEVEL 8.5 MG/DL (8.5-10.1); CREATININE FOR GFR 1.26 MG/DL (0.55-1.30); GLOMERULAR FILTRATION RATE 46.3 (>51); POTASSIUM SERUM 4.3 MEQ/L (3.5-5.1)
[2018-06-17] MEDS ORDERED: LEVEMIR (INSULIN DETEMIR) 1 UNITS/0.01ML SC ONE (00:15)
[2018-06-17] MEDS ORDERED: NS 1,000 ML IV SCH (00:15)
[2018-06-17] MEDS ORDERED: ACETAMINOPHEN TAB 650MG DOSE (2X325MG) PO ONE (00:15)
[2018-06-17 00:48] VITALS: BP 136/82
--- NOTE | 2018-06-17 07:22 | REP ---
AP pelvis: There are no pelvic fractures. There are pelvic calcifications bilaterally, nonspecific, phleboliths versus ureteral, correlate with symptomatology. The right and left sacroiliac articulations and right left hip articulations are unremarkable. Impression: Calcifications as described. Otherwise, negative AP pelvis. Right hip two views : There is no fracture or dislocation. Mineralization and joint spaces are normal. There are no calcifications or foreign bodies. Impression: Negative right hip . Electronically Signed by Sudeep Guzman MD 06/17/2018 07:14 A
== END 2018-06-17 00:49 | disposition home or self-care (01) ==
LOC: M ED 20:06
DX: M25.551 Pain in right hip (principal); E11.65 Type 2 diabetes mellitus with hyperglycemia; I10 Essential (primary) hypertension; M79.7 Fibromyalgia; K21.9 Gastro-esophageal reflux disease without esophagitis; G25.81 Restless legs syndrome; Z79.01 Long term (current) use of anticoagulants; Z79.4 Long term (current) use of insulin; Z79.899 Other long term (current) drug therapy; Z88.2 Allergy status to sulfonamides

== ENCOUNTER 2018-07-28 12:34 | Inpatient (IN) | payer MEDICARE, MEDICAID ==
[~2018-07-28] VITALS: Ht 167.6 cm; Wt 114.0 kg
[~2018-07-28 12:34] MED LIST changes: -TRAZ-160 PO; +TRAZ-252 PO
[2018-07-28 13:09] LABS: BASO # 0.1 10^3/uL (0.0-0.2); BASO % 0.6 % (0.0-1.0); EOS # 0.1 10^3/uL (0.0-0.50); HEMATOCRIT 42.8 % (36.0-47.0); HEMOGLOBIN 14.4 g/dl (12.0-15.5); LYMPH # 1.5 10^3/uL (1.5-4.5); LYMPH % 18.7 % (24.0-44.0); MEAN CORPUSCULAR HEMOGLOBIN 30.3 pg (27.0-33.0); MEAN CORPUSCULAR HGB CONC 33.6 g/dl (32.0-36.5); MEAN CORPUSCULAR VOLUME 90.1 fl (80.0-96.0); MONO # 0.5 10^3/uL (0.0-0.8); MONO % 6.2 % (0.0-5.0); NEUTROPHILS # 5.9 10^3/uL (1.8-7.7); NEUTROPHILS % 73.1 % (36.0-66.0); PLATELET COUNT, AUTOMATED 171 10^3/uL (150-450); RED BLOOD COUNT 4.75 10^6/uL (4.00-5.40)
--- NOTE | 2018-07-28 13:33 | REP ---
CHEST, SINGLE VIEW: There is no evidence of acute infiltrate. No pleural effusion is seen. The heart is normal in size. The mediastinal silhouette is unremarkable. The visualized osseous structures are intact. IMPRESSION: No acute pulmonary disease. Electronically Signed by Sudeep Quiroga MD 07/29/2018 09:23 A
[2018-07-28 13:34] LABS: ALBUMIN 3.4 GM/DL (3.2-5.2); ALT/SGPT 18 U/L (12-78); BILIRUBIN,DIRECT 0.1 MG/DL (0.0-0.2); BILIRUBIN,TOTAL 0.5 MG/DL (0.2-1.0); BLOOD UREA NITROGEN 12 MG/DL (7-18); CALCIUM LEVEL 8.5 MG/DL (8.5-10.1); CARBON DIOXIDE LEVEL 23 MEQ/L (21-32); CHLORIDE LEVEL 105 MEQ/L (98-107); CPK CREATINE PHOSPHOKINASE 41 U/L (26-192); CREATININE FOR GFR 0.99 MG/DL (0.55-1.30); GLOMERULAR FILTRATION RATE > 60.0 (>51); GLUCOSE, FASTING 310 MG/DL (70-100); MB/CK RELATIVE INDEX 2.68 (< OR =4); NT-PRO BNP 320 PG/ML (<125); POTASSIUM SERUM 3.4 MEQ/L (3.5-5.1); SODIUM LEVEL 139 MEQ/L (136-145); TOTAL PROTEIN 6.3 GM/DL (6.4-8.2); TROPONIN I 0.19 NG/ML (< 0.10)
[2018-07-28] MEDS ORDERED: ISOVUE-370 76% 100ML VIAL (Q9967) As Ordered ONE (13:39)
[2018-07-28 13:55] LABS: INR 0.95; PROTHROMBIN TIME 12.8 SECONDS (12.1-14.4)
[2018-07-28 13:56] LABS: PARTIAL THROMBOPLASTIN TIME 25.6 SECONDS (25.4-37.6)
[2018-07-28 13:58] LABS: D-DIMER QUANT 3411.85 ng/ml (<500)
--- NOTE | 2018-07-28 14:47 | REP ---
CT ANGIOGRAM OF THE CHEST: TECHNIQUE: Axial contrast enhanced images from the thoracic inlet to the upper abdomen using 100 mL Isovue 370 intravenous contrast material with multiplanar reformations. There are filling defects in the segmental branches of all lobes both on the right and on the left compatible with scattered bilateral pulmonary emboli. There is no thoracic aortic aneurysm or dissection. The heart is not enlarged. There is a small pericardial effusion. No pleural effusion is seen. No infiltrate is seen in either lung. The patient has had a prior cholecystectomy. IMPRESSION: Scattered bilateral pulmonary emboli involving various segmental branches of all lobes. Small pericardial effusion. No acute infiltrate in either lung. Electronically Signed by Sudeep Quiroga MD 07/29/2018 09:25 A
[2018-07-28] MEDS ORDERED: INSURSD SC (15:22)
[2018-07-28] MEDS ORDERED: ASPIRIN 325 MG TAB PO ONE (16:00)
[2018-07-28] MEDS ORDERED: NITROGLYCERIN 0.4 MG SUBL TABLET SL PRN (16:00)
[2018-07-28] MEDS ORDERED: POTASSIUM CHLORIDE 10 MEQ SR TABLET PO ONE (16:15)
[2018-07-28] MEDS ORDERED: HEPARIN SOD (PORCINE) 5000 UNITS/ML VIAL SQ ONE (16:15)
[2018-07-28] MEDS ORDERED: HEPARIN SOD (PORCINE) 5000 UNITS/ML VIAL IV PRN (16:15)
--- NOTE | 2018-07-28 16:20 | HPEPDOC ---
[facility] Medical History & Physical Date of Admission July 28, 2018 Date of Service: July 28, 2018 Attending Physician: FERDINAND IRENE MD History and Physical CHIEF COMPLAINT: SOB/Chest discomfort HISTORY OF PRESENT ILLNESS: She is a 57-year-old female with past medical history of pulmonary embolism on Eliquis, diabetes, hypertension, Fibromyalgia, RLS, and hypothyroidism resented to ER with complaints of worsening shortness of breath and chest discomfort. Patient stated that her symptoms started yesterday morning when she felt pressure in her chest as well as worsening dyspnea on exertion. Of note she has not been taking her Eliquis for pulmonary embolism for about a month as she has not got it refilled with her physician. In ER, CT scan showed b/l diffuse segmental embolisms. She is hemodynamically stable at this time and saturating at 94-95% on room air but reportedly was very hypertensive (?/118) at some point but not documented and sats dropped down to 80s previously. She currently appea rs comfortable and denies any discomfort including significant chest pain/discomfort or SOB. PAST MEDICAL HISTORY: Refer to [facility] PAST SURGICAL HISTORY: Right foot surgery Cholecystectomy Thyroidectomy SOCIAL HISTORY: Denies tobacco, or illicit drug use. Social alcohol use. FAMILY HISTORY: Father had CAD is Sister with colon cancer ALLERGIES: Please see below. REVIEW OF SYSTEMS: 10 point review of system negative except as stated in [facility] HOME MEDICATIONS: Please see below. PHYSICAL EXAMINATION: General: No acute distress, Alert Eyes: Normal sclera, EOMI, EDVIN HENT: Atraumatic, neck supple, moist mucous membranes Cardiovascular: Normal rate, normal rhythm. No murmurs appreciated. Pulmonary: Clear to auscultation b/l, no wheezing GI: Soft, nontender, nondistended Skin: Warm and dry Neuro: CN grossly intact. No focal deficits. Strengths equal b/l. Psych: oriented x 3 LABORATORY DATA: See below. IMAGING: CT Chest- IMPRESSION: Scattered bilateral pulmonary emboli involving various segmental branches of all lobes. Small pericardial effusion. No acute infiltrate in either lung. MICROBIOLOGY: Please see below. ASSESSMENT AND PLAN: 1. Pulmonary embolism - hx of PE 06/2018 had been on Eliquis since then with a lapse in the past month. - Appear to be saturating well on RA with no tachycardia or other evidence of HD instability currently. - Troponin .19 but chest pressure yesterday but is currently comfortable. - Subsegmental thrombi diffusely on CT scan. - Will place on heparin drip now while pending cardiac f/u. Plan to switch back to Eliquis prior to discharge. 2. NSTEMI likely type 2 - Troponin .19 on presentation but reported chest pressure day prior. - May be due to PE vs. Uncontrolled BP. Reportedly had elevated BP with diastolic at 118 (not documented however, might be at home or with EMS). - ASA 325 mg. Heparin drip initiated. - Monitor serial Troponins and EKG. No noted ST changes compare to prior at this time. - No significant chest pain/discomfort at this time. Nitro SL PRN. 3. DM - Hold home metformin - Accuchecks, ISS and Levemir (On lantus 12 units HS at home). 4. Fibromyalgia - c/w home meds 5. Hypothyroidism - c/w home meds. 6. HTN - c/w home meds. - BP currently stable. DVT ppx: Heparin drip at this time and SCD Code status: Full code Dispo: Home once stable. Vital Signs Vital Signs Date Time Temp Pulse Resp B/P (MAP) Pulse Ox O2 Delivery O2 Flow Rate FiO2 07/28/18 15:15 86 148/75 (99) 98 07/28/18 15:00 Room Air 07/28/18 12:48 97.0 18 Laboratory Data Labs 24H Laboratory Tests 2 07/28/18 12:52: Immature Granulocyte % (Auto) 0.4, White Blood Count 8.0, Red Blood Count 4.75, Hemoglobin 14.4, Hematocrit 42.8, Mean Corpuscular Volume 90.1, Mean Corpuscular Hemoglobin 30.3, Mean Corpuscular Hemoglobin Concent 33.6, Red Cell Distribution Width 13.2, Platelet Count 171, Neutrophils (%) (Auto) 73.1H, Lymphocytes (%) (Auto) 18.7L, Monocytes (%) (Auto) 6.2H, Eosinophils (%) (Auto) 1.0, Basophils (%) (Auto) 0.6, Neutrophils # (Auto) 5.9, Lymphocytes # (Auto) 1.5, Monocytes # (Auto) 0.5, Eosinophils # (Auto) 0.1, Basophils # (Auto) 0.1, Nucleated Red Blood Cells % (auto) 0.0, Prothrombin Time 12.8, Prothromb Time International Ratio 0.95, Activated Partial Thromboplast Time 25.6, D-Dimer, Quantitative 3411.85H, Anion Gap 11, Glomerular Filtration Rate > 60.0, Calcium Level 8.5, Aspartate Amino Transf (AST/SGOT) 12, Alanine Aminotransferase (ALT/SGPT) 18, A lkaline Phosphatase 108, Total Bilirubin 0.5, Direct Bilirubin 0.1, Total Creatine Kinase 41, Creatine Kinase MB 1.0, Creatine Kinase MB Relative Index 2.68, Troponin I 0.19H, PC-Kxz-G-Type Natriuretic Peptide 320H, Total Protein 6.3L, Albumin 3.4, Albumin/Globulin Ratio 1.17, Thyroid Stimulating Hormone (TSH) 23.000H CBC/BMP Laboratory Tests 07/28/18 12:52 Red Blood Count 4.75, Mean Corpuscular Volume 90.1, Mean Corpuscular Hemoglobin 30.3, Mean Corpuscular Hemoglobin Concent 33.6, Red Cell Distribution Width 13.2, Neutrophils (%) (Auto) 73.1 H, Lymphocytes (%) (Auto) 18.7 L, Monocytes (%) (Auto) 6.2 H, Eosinophils (%) (Auto) 1.0, Basophils (%) (Auto) 0.6, Neutrophils # (Auto) 5.9, Lymphocytes # (Auto) 1.5, Monocytes # (Auto) 0.5, Eosinophils # (Auto) 0.1, Basophils # (Auto) 0.1 Home Medications Scheduled Atenolol (Atenolol) 50 Mg Tab, 50 MG PO DAILY PT STATES SHE HAS BEEN OUT OF THIS MED Atorvastatin Calcium (Atorvastatin Calcium) 20 Mg Tab, 20 MG PO DAILY Insulin Glargine,Hum.rec.anlog (Vincent Engle) 300 Unit/Ml Inj, 12 UNIT SC QHS Insulin Human Regular (Humulin R) 100 Unit/1 Ml Vial, 20 UNITS SC TID Metformin HCl (Metformin HCl) 1,000 Mg Tab, 1,000 MG PO BID Ropinirole HCl (Ropinirole HCl) 0.25 Mg Tab, 0.25 MG PO QHS Trazodone HCl (Trazodone HCl) 50 Mg Tab, 50 MG PO QHS Allergies Coded Allergies: Sulfa (Sulfonamide Antibiotics) (Verified Allergy, Mild, rash, 06/17/18) A-FIB/CHADSVASC A-FIB History Current/History of A-Fib/PAF?: No FERDINAND IRENE MD July 28, 2018 16:20
[2018-07-28 17:28] VITALS: BP 146/90
[2018-07-28] MEDS ORDERED: HEPARIN SOD (PORCINE) 5000 UNITS/ML VIAL IV ONE (18:30)
[2018-07-28] MEDS: HumuLIN R (REGULAR) INSULIN (NovoLIN R) **100U/ML** PER UNIT SC SCH (18:36)
[2018-07-28] MEDS: HEPARIN DRIP 25,000 UNITS in APPROPRIATE DILUENT 1 EA IV SCH (18:37)
[2018-07-28] MEDS: traZODone 50 MG TAB PO SCH (21:21)
[2018-07-28] MEDS: LEVEMIR (INSULIN DETEMIR) 1 UNITS/0.01ML SC SCH (21:22)
[2018-07-28] MEDS: rOPINIRole 0.25 MG TAB(REQUIP) PO SCH (23:06)
[2018-07-28 23:59] VITALS: BP 140/76
[2018-07-29 04:00] VITALS: BP 130/81
--- NOTE | 2018-07-29 06:07 | ECGEPIP ---
[facility] - ED Test Date: 2018-07-28 Pat Name: LUIS CUMMINGS Department: Room: - Gender: F Jogger Operator: : 1960 Requested By: TIANNA Moreland Order Number: [id number] Reading MD: Quentin Aggarwal Measurements Intervals [place] Rate: 114 P: 51 AR: 132 QRS: -82 QRSD: 88 T: 14 QT: 352 QTc: 485 Interpretive Statements SINUS TACHYCARDIA LOW QRS VOLTAGE IN PRECORDIAL LEADS POSSIBLE RIGHT VENTRICULAR CONDUCTION DELAY LEFT ANTERIOR FASCICULAR BLOCK INFERIOR MYOCARDIAL INFARCTION, PROBABLY OLD NSTTW ABNORMALITIES SIMILAR TO 06/24/17 Electronically Signed on 07-29-2018 6:06:37 EDT by Quentin Aggarwal
[2018-07-29 07:00] LABS: HEMATOCRIT 39.3 % (36.0-47.0); MEAN CORPUSCULAR HEMOGLOBIN 29.6 pg (27.0-33.0); MEAN CORPUSCULAR HGB CONC 33.1 g/dl (32.0-36.5); MEAN CORPUSCULAR VOLUME 89.5 fl (80.0-96.0); PLATELET COUNT, AUTOMATED 150 10^3/uL (150-450); RED BLOOD COUNT 4.39 10^6/uL (4.00-5.40); WHITE BLOOD COUNT 7.2 10^3/uL (4.0-10.0)
[2018-07-29 07:14] LABS: INR 1.08; PROTHROMBIN TIME 14.1 SECONDS (12.1-14.4)
[2018-07-29 07:16] LABS: PARTIAL THROMBOPLASTIN TIME 55.5 SECONDS (25.4-37.6)
[2018-07-29 07:30] LABS: BLOOD UREA NITROGEN 12 MG/DL (7-18); CALCIUM LEVEL 8.2 MG/DL (8.5-10.1); CARBON DIOXIDE LEVEL 25 MEQ/L (21-32); CHLORIDE LEVEL 107 MEQ/L (98-107); CREATININE FOR GFR 0.77 MG/DL (0.55-1.30); GLOMERULAR FILTRATION RATE > 60.0 (>51); GLUCOSE, FASTING 177 MG/DL (70-100); POTASSIUM SERUM 3.4 MEQ/L (3.5-5.1); SODIUM LEVEL 140 MEQ/L (136-145)
[2018-07-29] MEDS: HumuLIN R (REGULAR) INSULIN (NovoLIN R) **100U/ML** PER UNIT SC SCH ×3 (07:39→17:46)
[2018-07-29 07:53] VITALS: BP 115/68
[2018-07-29] MEDS ORDERED: POTASSIUM CHLORIDE 10 MEQ SR TABLET PO ONE (09:00)
[2018-07-29] MEDS: ATENOLOL 50 MG TAB PO SCH (09:49)
[2018-07-29] MEDS: ATORVASTATIN 20 MG TAB PO SCH (09:49)
[2018-07-29] MEDS: ASPIRIN 81 MG CHEW TABLET PO SCH (09:49)
[2018-07-29 11:58] VITALS: BP 124/65
--- NOTE | 2018-07-29 12:41 | IPNPDOC ---
Date Seen The patient was seen on 07/29/18. Progress Note SUBJECTIVE: Patient reports feeling fine apart from mild pleuritic chest pressure with deep breaths. Troponin trended down, does not report significant chest pain. Heparin drip ongoing. To have PT to assess mobility status. OBJECTIVE PHYSICAL EXAMINATION: VITAL SIGNS: Please see below. Eyes: Normal sclera, EOMI, EDVIN HENT: Atraumatic, neck supple, moist mucous membranes Cardiovascular: Normal rate, normal rhythm. No murmurs appreciated. Pulmonary: Clear to auscultation b/l, no wheezing GI: Soft, nontender, nondistended Skin: Warm and dry Neuro: CN grossly intact. No focal deficits. Strengths equal b/l. Psych: oriented x 3 LABORATORY DATA, IMAGING STUDIES, MICROBIOLOGY: Please see below. ASSESSMENT AND PLAN: 1. Pulmonary embolism - hx of PE 06/2018 had been on Eliquis since then with a lapse in the past month. - Appear to be saturating well on RA with no tachycardia or other evidence of HD instability currently. - Troponin .19 on presentation, had trended down. Will order ECHO to assess to heart strain. - Subsegmental thrombi diffusely on CT scan. - Have been on Heparin drip. Plan on switching back to Eliquis prior to discharge. 2. NSTEMI likely type 2 - Troponin .19 on presentation and had trended down. - May be due to PE vs. Uncontrolled BP. Reportedly had elevated BP with diastolic at 118 (not documented however, might be at home or with EMS). - s/p ASA 325 mg. Heparin drip. - No noted ST changes compare to prior at this time. - Nitro SL PRN. 3. DM - Hold home metformin - Accuchecks, ISS and Levemir (On lantus 12 units HS at home). 4. Fibromyalgia - c/w home meds 5. Hypothyroidism - c/w home meds. - has not taken synthroid for awhile, TSH 23 with free T4 .66. - Resumed on 125mcg, patient does not remember dose that that was given in the past when patient was in the hospital. to f/u for repeat TSH with PCP post disc harge. 6. HTN - c/w home meds. - BP currently stable. DVT ppx: Heparin drip at this time and SCD Code status: Full code Dispo: Home once stable. A-FIB/CHADSVASC A-FIB History Current/History of A-Fib/PAF?: No VS, I&O, 24H, Fishbone Vital Signs/I&O Vital Signs Date Time Temp Pulse Resp B/P (MAP) Pulse Ox O2 Delivery O2 Flow Rate FiO2 07/29/18 11:58 97.2 73 20 124/65 (84) 98 1.0 07/28/18 15:00 Room Air I&O- Last 24 Hours up to 6 AM 07/29/18 06:00 Intake Total 636 ml Output Total 700 ml Balance -64 ml Laboratory Data 24H LABS Laboratory Tests 2 07/28/18 12:52: Immature Granulocyte % (Auto) 0.4, White Blood Count 8.0, Red Blood Count 4.75, Hemoglobin 14.4, Hematocrit 42.8, Mean Corpuscular Volume 90.1, Mean Corpuscular Hemoglobin 30.3, Mean Corpuscular Hemoglobin Concent 33.6, Red Cell Distribution Width 13.2, Platelet Count 171, Neutrophils (%) (Auto) 73.1H, Lymphocytes (%) (Auto) 18.7L, Monocytes (%) (Auto) 6.2H, Eosinophils (%) (Auto) 1.0, Basophils (%) (Auto) 0.6, Neutrophils # (Auto) 5.9, Lymphocytes # (Auto) 1.5, Monocytes # (Auto) 0.5, Eosinophils # (Auto) 0.1, Basophils # (Auto) 0.1, Nucleated Red Blood Cells % (auto) 0.0, Prothrombin Time 12.8, Prothromb Time International Ratio 0.95, Activated Partial Thromboplast Time 25.6, D-Dimer, Quantitative 3411.85H, Anion Gap 11, Glomerular Filtration Rate > 60.0, Calcium Level 8.5, Aspartate Amino Transf (AST/SGOT) 12, Alanine Aminotransferase (ALT/SGPT) 18, Alkaline Phosphatase 108, Total Bilirubin 0.5, Direct Bilirubin 0.1, Total Creatine Kinase 41, Creatine Kinase MB 1.0, Creatine Kinase MB Relative Index 2.68, Troponin I 0.19H, VI-Tee-L-Type Natriuretic Peptide 320H, Total Protein 6.3L, Albumin 3.4, Albumin/Globulin Ratio 1.17, Thyroid Stimulating Hormone (TSH) 23.000H 07/28/18 17:23: Activated Partial Thromboplast Time 25.0L, Troponin I 0.22H, Free Thyroxine 0.66L 07/28/18 17:26: Bedside Glucose (Misc Panel) 246H 07/28/18 22:02: Activated Partial Thromboplast Time 96.1H, Troponin I 0.17#H 07/29/18 00:49: Activated Partial Thromboplast Time 68.2H 07/29/18 06:50: Activated Partial Thromboplast Time 55.5H, Nucleated Red Blood Cells % (auto) 0.0, Prothrombin Time 14.1, Prothromb Time International Ratio 1.08, Anion Gap 8, Glomerular Filtration Rate > 60.0, Blood Urea Nitrogen 12, Creatinine 0.77, Sodium Level 140, Potassium Level 3.4L, Chloride Level 107, Carbon Dioxide Level 25, Calcium Level 8.2L 07/29/18 11:43: Bedside Glucose (Misc Panel) 180H CBC/BMP Laboratory Tests 07/28/18 12:52 Red Blood Count 4.75, Mean Corpuscular Volume 90.1, Mean Corpuscular Hemoglobin 30.3, Mean Corpuscular Hemoglobin Concent 33.6, Red Cell Distribution Width 13 .2, Neutrophils (%) (Auto) 73.1 H, Lymphocytes (%) (Auto) 18.7 L, Monocytes (%) (Auto) 6.2 H, Eosinophils (%) (Auto) 1.0, Basophils (%) (Auto) 0.6, Neutrophils # (Auto) 5.9, Lymphocytes # (Auto) 1.5, Monocytes # (Auto) 0.5, Eosinophils # (Auto) 0.1, Basophils # (Auto) 0.1 07/29/18 06:50 Red Blood Count 4.39, Mean Corpuscular Volume 89.5, Mean Corpuscular Hemoglobin 29.6, Mean Corpuscular Hemoglobin Concent 33.1, Red Cell Distribution Width 13.2, Calcium Level 8.2 L FERDINAND IRENE MD July 29, 2018 12:41
[2018-07-29] MEDS: LEVOTHYROXINE 125MCG TABLET (0.125MG) PO SCH (13:30)
[2018-07-29 16:38] VITALS: BP 123/59
[2018-07-29 20:00] VITALS: BP 114/71
[2018-07-29] MEDS: traZODone 50 MG TAB PO SCH (21:48)
[2018-07-29] MEDS: LEVEMIR (INSULIN DETEMIR) 1 UNITS/0.01ML SC SCH (21:48)
[2018-07-29] MEDS: rOPINIRole 0.25 MG TAB(REQUIP) PO SCH (21:48)
[2018-07-29] MEDS: HEPARIN DRIP 25,000 UNITS in APPROPRIATE DILUENT 1 EA IV SCH (23:39)
[2018-07-29 23:59] VITALS: BP 132/75
[2018-07-30 04:00] VITALS: BP 131/71
[2018-07-30] MEDS: LEVOTHYROXINE 125MCG TABLET (0.125MG) PO SCH (05:00)
[2018-07-30 05:03] LABS: HEMATOCRIT 39.4 % (36.0-47.0); HEMOGLOBIN 13.2 g/dl (12.0-15.5); MEAN CORPUSCULAR HEMOGLOBIN 30.3 pg (27.0-33.0); MEAN CORPUSCULAR HGB CONC 33.5 g/dl (32.0-36.5); MEAN CORPUSCULAR VOLUME 90.6 fl (80.0-96.0); PLATELET COUNT, AUTOMATED 145 10^3/uL (150-450); RED BLOOD COUNT 4.35 10^6/uL (4.00-5.40); WHITE BLOOD COUNT 7.5 10^3/uL (4.0-10.0)
[2018-07-30 05:26] LABS: BLOOD UREA NITROGEN 14 MG/DL (7-18); CALCIUM LEVEL 7.9 MG/DL (8.5-10.1); CARBON DIOXIDE LEVEL 25 MEQ/L (21-32); CHLORIDE LEVEL 105 MEQ/L (98-107); CREATININE FOR GFR 0.77 MG/DL (0.55-1.30); GLOMERULAR FILTRATION RATE > 60.0 (>51); GLUCOSE, FASTING 259 MG/DL (70-100); POTASSIUM SERUM 3.9 MEQ/L (3.5-5.1); SODIUM LEVEL 137 MEQ/L (136-145)
[2018-07-30 08:00] VITALS: BP 131/79
[2018-07-30] MEDS: ATORVASTATIN 20 MG TAB PO SCH (08:21)
[2018-07-30] MEDS: ASPIRIN 81 MG CHEW TABLET PO SCH (08:21)
[2018-07-30] MEDS: ATENOLOL 50 MG TAB PO SCH (08:22)
[2018-07-30] MEDS: HumuLIN R (REGULAR) INSULIN (NovoLIN R) **100U/ML** PER UNIT SC SCH ×3 (08:23→17:39)
--- NOTE | 2018-07-30 09:22 | ECHO ---
DATE OF PROCEDURE: 07/29/2018 DATE OF : 1960 AGE: 57 REFERRING PROVIDER: Dr. Esvin Thurman PATIENT LOCATION: Room 3214 REASON FOR THE ECHOCARDIOGRAM: Pulmonary embolism. 2-D MEASUREMENTS: IVS: 1.1 cm LV: 3.5 cm LVPW: 1.1 cm LA: 3.6 cm Aorta: 2.6 cm IVC: 2.3 cm DOPPLER MEASUREMENTS: Peak velocity across the aortic valve: 1.6 m/s Peak velocity across the LVOT: 1.1 m/s Mitral E: 0.52, Mitral A: 0.7 with a ratio of 0.7 Maximum tricuspid valve velocity: 2.5 m/s 2-D COMMENTS: 1. Normal left ventricular size, wall thickness, and normal global left ventricular systolic function. The estimated left ventricular systolic function is 60%. 2. Normal left atrium. The right atrium and right ventricle appeared to be mildly enlarged in limited views. 3. The atrial septum appeared to be normal without evidence of defect or shunt. 4. Normal aortic root. 5. A small to moderate pericardial effusion was noted, no evidence of cardiac tamponade. 6. Mildly calcified aortic valve with normal leaflet excursion. Normal mitral valve, tricuspid valve, and pulmonic valve. The proximal pulmonary artery branches were not well visualized. 7. The inferior vena cava is dilated, central venous pressure is probably elevated. DOPPLER: It detects trace to mild tricuspid regurgitation, trace pulmonic regurgitation. The calculated pulmonary artery systolic pressure varies between 30-40 mmHg. Abnormal relaxation pattern was noted across the mitral valve leaflets as well as the mitral valve annulus consistent with features of grade 1 left ventricular diastolic dysfunction. IMPRESSION: 1. Normal global left ventricular systolic function. There are some features of left ventricular diastolic dysfunction manifested by abnormal relaxation, grade 1. 2. Aortic valve sclerosis without stenosis or aortic regurgitation. 3. Trace to mild tricuspid regurgitation with probably mild pulmonary hypertension. The right heart chambers appeared to be mildly enlarged in limited views. 4. Small to moderate pericardial effusion was noted, no evidence of cardiac tamponade. 5. The inferior vena cava was dilated, central venous pressure might be elevated. 6. The study was technically limited due to poor acoustic window. 7. This was compared with prior echocardiogram done on 06/25/2017 and at that time, the right heart chambers appeared to be normal. Pericardial effusion was present. Left ventricular systolic function was normal. MTDD
[2018-07-30 12:00] VITALS: BP 121/60
[2018-07-30 16:00] VITALS: BP 119/68
--- NOTE | 2018-07-30 19:42 | IPNPDOC ---
Date Seen The patient was seen on 07/30/18. Progress Note SUBJECTIVE: Patient looks comfortable and reports feeling well but was hesitant to get off of O2 even though saturating fine. Chest discomfort with deep inspiration still persistent. Heparin drip ongoing. ECHO showed small degree of dilatation. OBJECTIVE PHYSICAL EXAMINATION: VITAL SIGNS: Please see below. Eyes: Normal sclera, EOMI, EDVIN HENT: Atraumatic, neck supple, moist mucous membranes Cardiovascular: Normal rate, normal rhythm. No murmurs appreciated. Pulmonary: Clear to auscultation b/l, no wheezing GI: Soft, nontender, nondistended Skin: Warm and dry Neuro: CN grossly intact. No focal deficits. Strengths equal b/l. Psych: oriented x 3 LABORATORY DATA, IMAGING STUDIES, MICROBIOLOGY: Please see below. ASSESSMENT AND PLAN: 1. Pulmonary embolism - hx of PE 06/2018 had been on Eliquis since then with a lapse in the past month. - Appear to be saturating well on RA with no tachycardia or other evidence of HD instability. - Troponin .19 on presentation, had trended down. - Subsegmental thrombi diffusely on CT scan. ECHO with evidence of R. heart strain and small to moderate pericardial effusion. - Cardiology and Vascular consulted. Recommended likely 24 or 48 hr thrombolysis. - Plan on switching back to Eliquis prior to discharge. 2. NSTEMI likely type 2 - Troponin .19 on presentation and had trended down. - May be due to PE vs. Uncontrolled BP. Reportedly had elevated BP with diastolic at 118 (not documented however, might be at home or with EMS). - s/p ASA 325 mg. Heparin drip. - No noted ST changes compare to prior. - Nitro SL PRN. 3. DM - Hold home metformin - Accuchecks, ISS and Levemir (On lantus 12 units HS at home). 4. Fibromyalgia - c/w home meds 5. Hypothyroidism - c/w home meds. - has not taken synthroid for awhile, TSH 23 with free T4 .66. - Resumed on 125mcg, patient does not remember dose that that was given in the past when patient was in the hospital. to f/u for repeat TSH with PCP post discharge. 6. HTN - c/w home meds. - BP currently stable. DVT ppx: Heparin drip at this time and SCD Code status: Full code Dispo: Home once stable. A-FIB/CHADSVASC A-FIB History Current/History of A-Fib/PAF?: No VS, I&O, 24H, Fishbone Vital Signs/I&O Vital Signs Date Time Temp Pulse Resp B/P (MAP) Pulse Ox O2 Delivery O2 Flow Rate FiO2 07/30/18 16:00 97.7 79 18 119/68 (85) 93 07/30/18 12:00 0.0 07/28/18 15:00 Room Air I&O- Last 24 Hours up to 6 AM 07/30/18 06:00 Intake Total 762 ml Output Total 875 ml Balance -113 ml Laboratory Data 24H LABS Laboratory Tests 2 07/29/18 21:46: Activated Partial Thromboplast Time 88.7H 07/30/18 04:46: Activated Partial Thromboplast Time 78.0H, Nucleated Red Blood Cells % (auto) 0.0, Anion Gap 7L, Glomerular Filtration Rate > 60.0, Blood Urea Nitrogen 14, Creatinine 0.77, Sodium Level 137, Potassium Level 3.9, Chloride Level 105, Carbon Dioxide Level 25, Calcium Level 7.9L 07/30/18 11:29: Bedside Glucose (Misc Panel) 315H 07/30/18 17:04: Bedside Glucose (Misc Panel) 279H CBC/BMP Laboratory Tests 07/30/18 04:46 Red Blood Count 4.35, Mean Corpuscular Volume 90.6, Mean Corpuscular Hemoglobin 30.3, Mean Corpuscular Hemoglobin Concent 33.5, Red Cell Distribution Width 13.2, Calcium Level 7.9 L FERDINAND IRENE MD July 30, 2018 19:42
[2018-07-30 20:00] VITALS: BP 115/80
[2018-07-30] MEDS: LEVEMIR (INSULIN DETEMIR) 1 UNITS/0.01ML SC SCH (21:34)
[2018-07-30] MEDS: traZODone 50 MG TAB PO SCH (21:35)
[2018-07-30] MEDS: rOPINIRole 0.25 MG TAB(REQUIP) PO SCH (21:35)
[2018-07-30 23:59] VITALS: BP 138/72
[2018-07-31] VITALS (11 sets, daily range): BP systolic 126–179; BP diastolic 65–100
[2018-07-31] MEDS: HEPARIN DRIP 25,000 UNITS in APPROPRIATE DILUENT 1 EA IV SCH (00:14)
[2018-07-31] MEDS: LEVOTHYROXINE 125MCG TABLET (0.125MG) PO SCH (06:12)
[2018-07-31 06:20] LABS: HEMATOCRIT 39.7 % (36.0-47.0); HEMOGLOBIN 13.2 g/dl (12.0-15.5); MEAN CORPUSCULAR HEMOGLOBIN 29.9 pg (27.0-33.0); MEAN CORPUSCULAR HGB CONC 33.2 g/dl (32.0-36.5); MEAN CORPUSCULAR VOLUME 89.8 fl (80.0-96.0); PLATELET COUNT, AUTOMATED 155 10^3/uL (150-450); RED BLOOD COUNT 4.42 10^6/uL (4.00-5.40); WHITE BLOOD COUNT 7.1 10^3/uL (4.0-10.0)
[2018-07-31 06:50] LABS: BLOOD UREA NITROGEN 12 MG/DL (7-18); CALCIUM LEVEL 8.2 MG/DL (8.5-10.1); CARBON DIOXIDE LEVEL 28 MEQ/L (21-32); CHLORIDE LEVEL 102 MEQ/L (98-107); CREATININE FOR GFR 0.88 MG/DL (0.55-1.30); GLOMERULAR FILTRATION RATE > 60.0 (>51); GLUCOSE, FASTING 322 MG/DL (70-100); POTASSIUM SERUM 4.1 MEQ/L (3.5-5.1); SODIUM LEVEL 134 MEQ/L (136-145)
[2018-07-31] MEDS: ASPIRIN 81 MG CHEW TABLET PO SCH (08:31)
[2018-07-31] MEDS: ATORVASTATIN 20 MG TAB PO SCH (08:31)
[2018-07-31] MEDS: HumuLIN R (REGULAR) INSULIN (NovoLIN R) **100U/ML** PER UNIT SC SCH ×3 (08:32→17:09)
[2018-07-31] MEDS: ATENOLOL 50 MG TAB PO SCH (08:32)
--- NOTE | 2018-07-31 10:14 | CR.PDOC ---
General Date of Consultation: July 31, 2018 Consultation CONSULTATION REPORT FOR: Dr Thurman REASON FOR CONSULTATION: PE Vascular Surgery: Dr. Iraheta PCP: Dr Carrizales HPI: She is a 57-year-old female with past medical history of pulmonary embolism 06/25 on Eliquis, who presented to ER with complaints of worsening shortness of breath and chest discomfort. Patient stated that her symptoms started 07/29/18 when she felt pressure in her chest as well as worsening dyspnea on exertion. She admits she has not been taking her Eliquis for pulmonary embolism for about a month as she states she ran out and has trouble affording her copays. In ER, CT scan showed scattered bilateral pulmonary emboli involving various segmental branches of all lobes. This AM BP 130/76, RR 18-20, HR 63-83, Sats 94-95% on RA. She currently appears comfortable and denies any discomfort including significant chest pain/discomfort or SOB. Denies any history of bleeding. Denies any fevers, chills, weakness, fatigue, Headache, Chest Pain, Shortness of breath, cough, palpitations, abdominal pain, N/V/D or changes in bowel or bladder habits. Vascular Surgery consulted for PE and RV with dilation on TTE. PAST MEDICAL HISTORY: 1. Fibromyalgia. 2. Diabetes mellitus, insulin-dependent. 3. Restless legs. 4. Hypertension. 5. Gastroesophageal reflux disease (GERD). 6. Hypothyroidism. 7. PE 06/25 PAST SURGICAL HISTORY: 1. Right foot surgery. 2. Cholecystectomy. 3. Thyroidectomy. SOCHX: Tobacco use: denies ETOH: 1 drink Q2-3 months Illicit Drugs: Denies FAMHX: H/O CAD, denies h/o clotting disorder ROS: As noted in HPI, otherwise 11pt ROS of systems reviewed and unremarkable. PE: GEN: 57yoF, appears stated age. Well-nourished, well developed. No acute distress. Alert and oriented x 3. HEENT: Normocephalic, atraumatic. Sclera are nonicteric. Conjunctiva without injection. No facial asymmetry. Moist mucous membranes. CHEST: Regular rate and rhythm, +S1, +S2 LUNGS: Clear to auscultation bilaterally. No wheezes, rales, or rhonchi. Breathing appears symmetric and easy. ABD: Round, soft, non-tender, non-distended. +Bowel sounds throughout. No rebound or guarding. EXT: No lower extremity edema appreciated. SKIN: [place], dry, warm. No rashes. NEURO: Alert and oriented x 3. No focal deficits appreciated. CXR No acute pulmonary disease. Electronically Signed by Sudeep Quiroga MD 07/29/2018 09:23 A CTA chest Scattered bilateral pulmonary emboli involving various segmental branches of all lobes. Small pericardial effusion. No acute infiltrate in either lung. Electronically Signed by Sudeep Quiroga MD 07/29/2018 09:25 A TTE Normal global left ventricular systolic function. There are some features of left ventricular diastolic dysfunction manifested by abnormal relaxation, grade I Trace to mild tricuspid regurgitation with probably mild pulmonary hypertension. The right heart chambers appeared to be mildly enlarged in limited views. The inferior vena cava was dilated, central venous pressure might be elevated. The study was technically limited due to poor acoustic window. This was compared with prior echocardiogram done on 06/25/2017 and at that time, the right heart chambers appeared to be normal. Pericardial effusion was present. Left ventricular systolic function was normal. A&P: She is a 57-year-old female with past medical history of pulmonary embolism 06/25 on Eliquis, who presented to ER with complaints of worsening shortness of breath and chest discomfort. Patient stated that her symptoms started 07/29/18 when she felt pressure in her chest as well as worsening dyspnea on exertion. She admits she has not been taking her Eliquis for pulmonary embolism for about a month as she states she ran out and has trouble affording her copays. In ER, CT scan showed scattered bilateral pulmonary emboli involving various segmental branches of all lobes. PE. Pt is comfortable currently. This AM BP 130/76, RR 18-20, HR 63-83, Sats 94-95% on RA. TTE as above, Possible mild enlargement of Rt heart chambers, mild Pulmonary HTN. Currently on heparin gtt. Plan for IVC filter and possibly consider Pulmonary thrombolysis. H/O prior PE. Appears to have had hypercoagulable FLORES completed 06/25. Off Eliquis x 1 mo related to cost per pt. DVT prophylaxis. Heparin gtt. Thank you for your consultation. We will continue to follow along with you. Vital Signs/I&O Vital Signs Date Time Temp Pulse Resp B/P (MAP) Pulse Ox O2 Delivery O2 Flow Rate FiO2 07/31/18 08:32 63 130/76 07/31/18 08:04 97.8 20 94 07/30/18 16:00 0.0 07/28/18 15:00 Room Air I&O- Last 24 Hours up to 6 AM 07/31/18 06:00 Intake Total 2811 ml Output Total 1825 ml Balance 986 ml Laboratory Data Labs 24H Laboratory Tests 2 07/30/18 11:29: Bedside Glucose (Misc Panel) 315H 07/30/18 17:04: Bedside Glucose (Misc Panel) 279H 07/30/18 20:24: Bedside Glucose (Misc Panel) 364H 07/31/18 05:50: Nucleated Red Blood Cells % (auto) 0.0, Activated Partial Thromboplast Time 73.5H, Anion Gap 4L, Glomerular Filtration Rate > 60.0, Blood Urea Nitrogen 12, Creatinine 0.88, Sodium Level 134L, Potassium Level 4.1, Chloride Level 102, Carbon Dioxide Level 28, Calcium Level 8.2L CBC/BMP Laboratory Tests 07/31/18 05:50 Red Blood Count 4.42, Mean Corpuscular Volume 89.8, Mean Corpuscular Hemoglobin 29.9, Mean Corpuscular Hemoglobin Concent 33.2, Red Cell Distribution Width 13 .2, Calcium Level 8.2 L Allergies Coded Allergies: Sulfa (Sulfonamide Antibiotics) (Verified Allergy, Mild, rash, 06/17/18) Home Medications Scheduled Atenolol (Atenolol) 50 Mg Tab, 50 MG PO DAILY, (Reported) PT STATES SHE HAS BEEN OUT OF THIS MED Atorvastatin Calcium (Atorvastatin Calcium) 20 Mg Tab, 20 MG PO DAILY, (Reported) Insulin Glargine,Hum.rec.anlog (Vincent Engle) 300 Unit/Ml Inj, 12 UNIT SC QHS, (Reported) Insulin Human Regular (Humulin R) 100 Unit/1 Ml Vial, 20 UNITS SC TID, (Reported) Metformin HCl (Metformin HCl) 1,000 Mg Tab, 1,000 MG PO BID, (Reported) Ropinirole HCl (Ropinirole HCl) 0.25 Mg Tab, 0.25 MG PO QHS, (Reported) Trazodone HCl (Trazodone HCl) 50 Mg Tab, 50 MG PO QHS, (Reported) Elyse Ivory July 31, 2018 10:14
[2018-07-31] MEDS: ALTEPLASE RECOMBINANT 25 MG in NS 225 ML IV SCH (14:30)
[2018-07-31] MEDS ORDERED: ALTEPLASE RECOMBINANT 10 MG in APPROPRIATE DILUENT 1 EA IV ONE (14:30)
[2018-07-31] MEDS ORDERED: MIDAZOLAM INJ 2 MG/2 ML VIAL (J2250) As Ordered ONE (14:32)
[2018-07-31] MEDS ORDERED: LIDOCAINE 2% MDV 20 ML VIAL As Ordered ONE (14:32)
[2018-07-31] MEDS ORDERED: ISOVUE-300 61% 100ML VIAL (Q9967) As Ordered ONE (14:32)
[2018-07-31] MEDS ORDERED: fentaNYL 100 MCG/2 ML INJECTION (J3010) As Ordered ONE (14:32)
[2018-07-31] MEDS ORDERED: BUPIVACAINE HCL 0.5% 10 ML VIAL As Ordered ONE (14:33)
--- NOTE | 2018-07-31 14:49 | REP ---
Clinical: Pulmonary embolus . Technique: Quiroga scale and color Doppler evaluation using linear high frequency transducer. Findings: Ultrasound examination of the right and left lower extremity deep venous structures from the common femoral vein to the popliteal vein demonstrates normal compressibility flow and wave patterns in response to respiration and augmentation. There is no evidence for deep venous thrombosis. Impression: No evidence for deep venous thrombosis. Electronically Signed by Dave Us MD 07/31/2018 02:41 P
[2018-07-31] MEDS ORDERED: ALTEPLASE 2 MG/2 ML VIAL (J2997 PER 1MG) As Ordered ONE (14:50)
[2018-07-31] MEDS ORDERED: traMADol 50 MG TAB PO PRN (17:00)
[2018-07-31] MEDS: ACETAMINOPHEN TAB 650MG DOSE (2X325MG) PO PRN ×2 (17:04→23:15)
[2018-07-31] MEDS: SODIUM CHLORIDE 0.9% INJ 10 ML SYR IV SCH (17:14)
--- NOTE | 2018-07-31 17:27 | IPNPDOC ---
Date Seen The patient was seen on 07/31/18. Progress Note SUBJECTIVE: Patient reports feeling much better this morning. Does report some tooth discomfort and R. facial swelling however. Denies any other complaints. Was taken to OR by vascular for IVC filter and pulmonary thrombolysis. OBJECTIVE PHYSICAL EXAMINATION: VITAL SIGNS: Please see below. Eyes: Normal sclera, EOMI, EDVIN HENT: Atraumatic, neck supple, moist mucous membranes Cardiovascular: Normal rate, normal rhythm. No murmurs appreciated. Pulmonary: Clear to auscultation b/l, no wheezing GI: Soft, nontender, nondistended Skin: Warm and dry Neuro: CN grossly intact. No focal deficits. Strengths equal b/l. Psych: oriented x 3 LABORATORY DATA, IMAGING STUDIES, MICROBIOLOGY: Please see below. ASSESSMENT AND PLAN: 1. Pulmonary embolism - hx of PE 06/2018 had been on Eliquis since then with a lapse in the past month. - Appear to be saturating well on RA with no tachycardia or other evidence of HD instability. - Troponin .19 on presentation, had trended down. - Subsegmental thrombi diffusely on CT scan. ECHO with evidence of R. heart strain and small to moderate pericardial effusion. - Cardiology and Vascular consulted. - IVC filter placed and initiated on thrombolysis 07/31/18. - Plan on switching back to Eliquis prior to discharge. 2. NSTEMI likely type 2 - Troponin .19 on presentation and had trended down. - May be due to PE vs. Uncontrolled BP. Reportedly had elevated BP with diastolic at 118 (not documented however, might be at home or with EMS). - s/p ASA 325 mg. - No noted ST changes compare to prior. 3. DM - Hold home metformin - Accuchecks, ISS and Levemir (On lantus 12 units HS at home). 4. Fibromyalgia - c/w home meds 5. Hypothyroidism - c/w home meds. - has not taken synthroid for awhile, TSH 23 with free T4 .66. - Resumed on 125mcg, patient does not remember dose that that was given in the past when patient was in the hospital. to f/u for repeat TSH with PCP post discharge. 6. HTN - c/w home meds. - BP currently stable. DVT ppx: Heparin drip at this time and SCD Code status: Full code Dispo: Home once stable. VS, I&O, 24H, Fishbone Vital Signs/I&O Vital Signs Date Time Temp Pulse Resp B/P (MAP) Pulse Ox O2 Delivery O2 Flow Rate FiO2 07/31/18 08:32 63 130/76 07/31/18 08:04 97.8 20 94 07/30/18 16:00 0.0 07/28/18 15:00 Room Air I&O- Last 24 Hours up to 6 AM 07/31/18 06:00 Intake Total 2811 ml Output Total 1825 ml Balance 986 ml Laboratory Data 24H LABS Laboratory Tests 2 07/30/18 20:24: Bedside Glucose (Misc Panel) 364H 07/31/18 05:50: Nucleated Red Blood Cells % (auto) 0.0, Activated Partial Thromboplast Time 73.5H, Anion Gap 4L, Glomerular Filtration Rate > 60.0, Blood Urea Nitrogen 12, Creatinine 0.88, Sodium Level 134L, Potassium Level 4.1, Chloride Level 102, Carbon Dioxide Level 28, Calcium Level 8.2L 07/31/18 11:52: Bedside Glucose (Misc Panel) 389H 07/31/18 17:09: Bedside Glucose (Misc Panel) 298H CBC/BMP Laboratory Tests 07/31/18 05:50 Red Blood Count 4.42, Mean Corpuscular Volume 89.8, Mean Corpuscular Hemoglobin 29.9, Mean Corpuscular Hemoglobin Concent 33.2, Red Cell Distribution Width 13.2, Calcium Level 8.2 L FERDINAND IRENE MD July 31, 2018 17:27
[2018-07-31] MEDS: rOPINIRole 0.25 MG TAB(REQUIP) PO SCH (20:21)
[2018-07-31] MEDS: traZODone 50 MG TAB PO SCH (20:21)
[2018-07-31] MEDS: LEVEMIR (INSULIN DETEMIR) 1 UNITS/0.01ML SC SCH (20:22)
[2018-07-31] MEDS: SODIUM CHLORIDE 0.9% INJ 10 ML SYR IV PRN (22:10)
[2018-07-31 22:13] LABS: HEMATOCRIT 40.1 % (36.0-47.0); HEMOGLOBIN 13.5 g/dl (12.0-15.5)
[2018-07-31 22:26] LABS: PARTIAL THROMBOPLASTIN TIME 43.4 SECONDS (25.4-37.6)
[2018-08-01] VITALS (22 sets, daily range): BP systolic 100–174; BP diastolic 55–82
[2018-08-01] MEDS: HEPARIN DRIP 25,000 UNITS in APPROPRIATE DILUENT 1 EA IV SCH (00:02)
[2018-08-01] MEDS: SODIUM CHLORIDE 0.9% INJ 10 ML SYR IV PRN (04:30)
[2018-08-01 04:53] LABS: HEMATOCRIT 41.2 % (36.0-47.0); MEAN CORPUSCULAR VOLUME 88.4 fl (80.0-96.0); PLATELET COUNT, AUTOMATED 164 10^3/uL (150-450); RED BLOOD COUNT 4.66 10^6/uL (4.00-5.40); WHITE BLOOD COUNT 8.1 10^3/uL (4.0-10.0)
[2018-08-01 05:14] LABS: BLOOD UREA NITROGEN 9 MG/DL (7-18); CALCIUM LEVEL 8.6 MG/DL (8.5-10.1); CARBON DIOXIDE LEVEL 28 MEQ/L (21-32); CHLORIDE LEVEL 102 MEQ/L (98-107); CREATININE FOR GFR 0.76 MG/DL (0.55-1.30); GLOMERULAR FILTRATION RATE > 60.0 (>51); GLUCOSE, FASTING 282 MG/DL (70-100); POTASSIUM SERUM 3.9 MEQ/L (3.5-5.1); SODIUM LEVEL 137 MEQ/L (136-145)
[2018-08-01 05:30] LABS: PARTIAL THROMBOPLASTIN TIME 38.1 SECONDS (25.4-37.6)
[2018-08-01] MEDS: SODIUM CHLORIDE 0.9% INJ 10 ML SYR IV SCH ×2 (06:00→18:00)
[2018-08-01] MEDS: LEVOTHYROXINE 125MCG TABLET (0.125MG) PO SCH (06:33)
[2018-08-01] MEDS ORDERED: LEVEMIR (INSULIN DETEMIR) 1 UNITS/0.01ML SC ONE (09:00)
[2018-08-01] MEDS: ASPIRIN 81 MG CHEW TABLET PO SCH (09:06)
[2018-08-01] MEDS: ATORVASTATIN 20 MG TAB PO SCH (09:06)
[2018-08-01] MEDS: ATENOLOL 50 MG TAB PO SCH (09:07)
[2018-08-01] MEDS: HumuLIN R (REGULAR) INSULIN (NovoLIN R) **100U/ML** PER UNIT SC SCH ×3 (09:08→17:44)
[2018-08-01] MEDS: ACETAMINOPHEN TAB 650MG DOSE (2X325MG) PO PRN ×3 (09:10→22:09)
[2018-08-01 10:49] LABS: HEMATOCRIT 40.5 % (36.0-47.0); HEMOGLOBIN 13.4 g/dl (12.0-15.5)
[2018-08-01] MEDS: ALTEPLASE RECOMBINANT 25 MG in NS 225 ML IV SCH (14:10)
[2018-08-01 16:36] LABS: HEMATOCRIT 40.5 % (36.0-47.0); HEMOGLOBIN 13.6 g/dl (12.0-15.5)
--- NOTE | 2018-08-01 17:14 | IPNPDOC ---
Date Seen The patient was seen on 08/01/18. Progress Note SUBJECTIVE: Patient offered no complaints. Tooth discomfort and face swelling appeared slightly improve from the day prior. Pulmonary thrombolysis ongoing. OBJECTIVE PHYSICAL EXAMINATION: VITAL SIGNS: Please see below. Eyes: Normal sclera, EOMI, EDVIN HENT: Atraumatic, neck supple, moist mucous membranes. R. facial swelling. Cardiovascular: Normal rate, normal rhythm. No murmurs appreciated. Pulmonary: Clear to auscultation b/l, no wheezing GI: Soft, nontender, nondistended Skin: Warm and dry Neuro: CN grossly intact. No focal deficits. Strengths equal b/l. Psych: oriented x 3 LABORATORY DATA, IMAGING STUDIES, MICROBIOLOGY: Please see below. ASSESSMENT AND PLAN: 1. Pulmonary embolism - hx of PE 06/2018 had been on Eliquis since then with a lapse in the past month. - Appear to be saturating well on RA with no tachycardia or other evidence of HD instability. - Troponin .19 on presentation, had trended down. - Subsegmental thrombi diffusely on CT scan. ECHO with evidence of R. heart strain and small to moderate pericardial effusion. - Cardiology and Vascular consulted. - IVC filter placed and initiated on thrombolysis 07/31/18. - Plan on switching back to Eliquis prior to discharge. 2. NSTEMI likely type 2 - Troponin .19 on presentation and had trended down. - May be due to PE vs. Uncontrolled BP. Reportedly had elevated BP with diastol ic at 118 (not documented however, might be at home or with EMS). - s/p ASA 325 mg. - No noted ST changes compare to prior. 3. DM - Hold home metformin - Accuchecks, ISS and Levemir (On lantus 12 units HS at home). 4. Fibromyalgia - c/w home meds 5. Hypothyroidism - c/w home meds. - has not taken synthroid for awhile, TSH 23 with free T4 .66. - Resumed on 125mcg, patient does not remember dose that that was given in the past when patient was in the hospital. to f/u for repeat TSH with PCP post discharge. 6. HTN - c/w home meds. - BP currently stable. 7. maxillary sinusitis - Likely tooth infection leading to discomfort and R. facial swelling with R. sided facial tenderness. DVT ppx: Heparin drip at this time and SCD Code status: Full code Dispo: Home once stable. VS, I&O, 24H, Fishbone Vital Signs/I&O Vital Signs Date Time Temp Pulse Resp B/P (MAP) Pulse Ox O2 Delivery O2 Flow Rate FiO2 08/01/18 16:00 97.8 67 20 146/66 (92) 96 08/01/18 07:00 2.0 07/28/18 15:00 Room Air I&O- Last 24 Hours up to 6 AM 08/01/18 06:00 Intake Total 1381 ml Output Total 3825 ml Balance -2444 ml Laboratory Data 24H LABS Laboratory Tests 2 07/31/18 21:59: Activated Partial Thromboplast Time 43.4H, Fibrinogen 479H 08/01/18 02:54: Bedside Glucose (Misc Panel) 255H 08/01/18 04:30: Activated Partial Thromboplast Time 38.1H, Fibrinogen 562H, Nucleated Red Blood Cells % (auto) 0.0, Anion Gap 7L, Glomerular Filtration Rate > 60.0, Blood Urea Nitrogen 9, Creatinine 0.76, Sodium Level 137, Potassium Level 3.9, Chloride Level 102, Carbon Dioxide Level 28, Calcium Level 8.6 08/01/18 08:58: Bedside Glucose (Misc Panel) 403H 08/01/18 10:18: Activated Partial Thromboplast Time 44.5H, Fibrinogen 492H 08/01/18 11:38: Bedside Glucose (Misc Panel) 355H 08/01/18 16:23: Activated Partial Thromboplast Time 36.0, Fibrinogen 492H CBC/BMP Laboratory Tests 07/31/18 21:59 08/01/18 04:30 Red Blood Count 4.66, Mean Corpuscular Volume 88.4, Mean Corpuscular Hemoglobin 30.0, Mean Corpuscular Hemoglobin Concent 34.0, Red Cell Distribution Width 13.1, Calcium Level 8.6 08/01/18 10:18 08/01/18 16:23 FERDINAND IRENE MD August 01, 2018 17:14
[2018-08-01] MEDS ORDERED: LEVEMIR (INSULIN DETEMIR) 1 UNITS/0.01ML SC SCH (21:00)
[2018-08-01] MEDS: rOPINIRole 0.25 MG TAB(REQUIP) PO SCH (21:54)
[2018-08-01] MEDS: traZODone 50 MG TAB PO SCH (21:54)
[2018-08-01] MEDS: AUGMENTIN 875 MG TAB PO SCH (21:54)
[2018-08-01] MEDS: LEVEMIR (INSULIN DETEMIR) 1 UNITS/0.01ML SC SCH (21:55)
[2018-08-01 22:20] LABS: HEMATOCRIT 40.9 % (36.0-47.0); HEMOGLOBIN 13.5 g/dl (12.0-15.5)
[2018-08-01 22:38] LABS: PARTIAL THROMBOPLASTIN TIME 70.5 SECONDS (25.4-37.6)
[2018-08-02] VITALS (21 sets, daily range): BP systolic 94–155; BP diastolic 50–72
[2018-08-02] MEDS: HEPARIN DRIP 25,000 UNITS in APPROPRIATE DILUENT 1 EA IV SCH (00:10)
[2018-08-02 04:42] LABS: HEMATOCRIT 39.6 % (36.0-47.0); HEMOGLOBIN 13.3 g/dl (12.0-15.5); MEAN CORPUSCULAR HEMOGLOBIN 29.9 pg (27.0-33.0); MEAN CORPUSCULAR HGB CONC 33.6 g/dl (32.0-36.5); PLATELET COUNT, AUTOMATED 167 10^3/uL (150-450); RED BLOOD COUNT 4.45 10^6/uL (4.00-5.40); WHITE BLOOD COUNT 7.4 10^3/uL (4.0-10.0)
[2018-08-02 04:54] LABS: PARTIAL THROMBOPLASTIN TIME 75.5 SECONDS (25.4-37.6)
[2018-08-02 05:03] LABS: BLOOD UREA NITROGEN 11 MG/DL (7-18); CALCIUM LEVEL 8.5 MG/DL (8.5-10.1); CARBON DIOXIDE LEVEL 26 MEQ/L (21-32); CHLORIDE LEVEL 103 MEQ/L (98-107); CREATININE FOR GFR 0.84 MG/DL (0.55-1.30); GLOMERULAR FILTRATION RATE > 60.0 (>51); GLUCOSE, FASTING 275 MG/DL (70-100); POTASSIUM SERUM 3.9 MEQ/L (3.5-5.1); SODIUM LEVEL 136 MEQ/L (136-145)
[2018-08-02] MEDS: SODIUM CHLORIDE 0.9% INJ 10 ML SYR IV SCH ×2 (05:12→17:10)
[2018-08-02] MEDS: LEVOTHYROXINE 125MCG TABLET (0.125MG) PO SCH (05:12)
[2018-08-02] MEDS: ASPIRIN 81 MG CHEW TABLET PO SCH (08:15)
[2018-08-02] MEDS: ATORVASTATIN 20 MG TAB PO SCH (08:15)
[2018-08-02] MEDS: AUGMENTIN 875 MG TAB PO SCH ×2 (08:15→20:10)
[2018-08-02] MEDS: ACETAMINOPHEN TAB 650MG DOSE (2X325MG) PO PRN (08:15)
[2018-08-02] MEDS: ATENOLOL 50 MG TAB PO SCH (08:16)
[2018-08-02] MEDS: HumuLIN R (REGULAR) INSULIN (NovoLIN R) **100U/ML** PER UNIT SC SCH ×3 (08:16→17:10)
[2018-08-02 10:22] LABS: HEMATOCRIT 40.4 % (36.0-47.0); HEMOGLOBIN 13.6 g/dl (12.0-15.5)
[2018-08-02 10:33] LABS: PARTIAL THROMBOPLASTIN TIME 55.8 SECONDS (25.4-37.6)
--- NOTE | 2018-08-02 11:30 | IPNPDOC ---
Date Seen The patient was seen on 08/02/18. Progress Note SUBJECTIVE: Patient reports feeling well with improving facial swelling with Abx. However, noted to bled overnight over site of tpa/heparin infusion. Had stabelized with pressure dressing. OBJECTIVE PHYSICAL EXAMINATION: VITAL SIGNS: Please see below. Eyes: Normal sclera, EOMI, EDVIN HENT: Atraumatic, neck supple, moist mucous membranes. R. facial swelling improving. Cardiovascular: Normal rate, normal rhythm. No murmurs appreciated. Pulmonary: Clear to auscultation b/l, no wheezing GI: Soft, nontender, nondistended Skin: Warm and dry Neuro: CN grossly intact. No focal deficits. Strengths equal b/l. Psych: oriented x 3 LABORATORY DATA, IMAGING STUDIES, MICROBIOLOGY: Please see below. ASSESSMENT AND PLAN: 1. Pulmonary embolism - hx of PE 06/2018 had been on Eliquis since then with a lapse in the past month. - Appear to be saturating well on RA with no tachycardia or other evidence of HD instability. - Troponin .19 on presentation, had trended down. - Subsegmental thrombi diffusely on CT scan. ECHO with evidence of R. heart strain and small to moderate pericardial effusion. - Cardiology and Vascular consulted. - IVC filter placed and initiated on thrombolysis 07/31/18. - Plan on switching back to Eliquis prior to discharge. 2. NSTEMI likely type 2 - Troponin .19 on presentation and had trended down. - May be due to PE vs. Uncontrolled BP. Reportedly had elevated BP with diastolic at 118 (not documented however, might be at home or with EMS). - s/p ASA 325 mg. - No noted ST changes compare to prior. 3. DM - Hold home metformin - Accuchecks, ISS and Levemir (On lantus 12 units HS at home). - Increased from 15 units to 25 units daily at this time, BS uncontrolled. 4. Fibromyalgia - c/w home meds 5. Hypothyroidism - c/w home meds. - has not taken synthroid for awhile, TSH 23 with free T4 .66. - Resumed on 125mcg, patient does not remember dose that that was given in the past when patient was in the hospital. to f/u for repeat TSH with PCP post discharge. 6. HTN - c/w home meds. - BP currently stable. 7. maxillary sinusitis - R. facial swelling with R. sided facial tenderness. - Started on Augmentin 08/01 with improvement. DVT ppx: Heparin drip at this time and SCD Code status: Full code Dispo: Home once stable. VS, I&O, 24H, Fishbone Vital Signs/I&O Vital Signs Date Time Temp Pulse Resp B/P (MAP) Pulse Ox O2 Delivery O2 Flow Rate FiO2 08/02/18 09:00 73 18 105/56 (72) 93 08/02/18 08:00 97.9 08/01/18 07:00 2.0 07/28/18 15:00 Room Air I&O- Last 24 Hours up to 6 AM 08/02/18 06:00 Intake Total 1012 ml Output Total 2150 ml Balance -1138 ml Laboratory Data 24H LABS Laboratory Tests 2 08/01/18 11:38: Bedside Glucose (Misc Panel) 355H 08/01/18 16:23: Activated Partial Thromboplast Time 36.0, Fibrinogen 492H 08/01/18 17:40: Bedside Glucose (Misc Panel) 349H 08/01/18 21:57: Activated Partial Thromboplast Time 70.5H, Fibrinogen 533H 08/01/18 21:59: Bedside Glucose (Misc Panel) 345H 08/02/18 04:19: Nucleated Red Blood Cells % (auto) 0.0, Activated Partial Thromboplast Time 75.5H, Fibrinogen 575H, Anion Gap 7L, Glomerular Filtration Rate > 60.0, Blood Urea Nitrogen 11, Creatinine 0.84, Sodium Level 136, Potassium Level 3.9, Chloride Level 103, Carbon Dioxide Level 26, Calcium Level 8.5 08/02/18 09:48: Activated Partial Thromboplast Time 55.8H, Fibrinogen 562H CBC/BMP Laboratory Tests 08/01/18 16:23 08/01/18 21:57 08/02/18 04:19 Red Blood Count 4.45, Mean Corpuscular Volume 89.0, Mean Corpuscular Hemoglobin 29.9, Mean Corpuscular Hemoglobin Concent 33.6, Red Cell Distribution Width 13.2, Calcium Level 8.5 08/02/18 09:48 FERDINAND IRENE MD August 02, 2018 11:30
[2018-08-02] MEDS: ALTEPLASE RECOMBINANT 25 MG in NS 225 ML IV SCH (15:00)
[2018-08-02] MEDS: LEVEMIR (INSULIN DETEMIR) 1 UNITS/0.01ML SC SCH (20:09)
[2018-08-02] MEDS: traZODone 50 MG TAB PO SCH (20:10)
[2018-08-02] MEDS: rOPINIRole 0.25 MG TAB(REQUIP) PO SCH (20:10)
[2018-08-02 20:40] LABS: HEMATOCRIT 38.8 % (36.0-47.0); HEMOGLOBIN 12.8 g/dl (12.0-15.5)
[2018-08-02 20:53] LABS: PARTIAL THROMBOPLASTIN TIME 68.3 SECONDS (25.4-37.6)
[2018-08-03] VITALS (21 sets, daily range): BP systolic 88–120; BP diastolic 48–75
[2018-08-03] MEDS: HEPARIN DRIP 25,000 UNITS in APPROPRIATE DILUENT 1 EA IV SCH (01:42)
[2018-08-03 01:58] LABS: HEMATOCRIT 38.3 % (36.0-47.0); HEMOGLOBIN 12.9 g/dl (12.0-15.5)
[2018-08-03] MEDS: SODIUM CHLORIDE 0.9% INJ 10 ML SYR IV PRN (02:06)
[2018-08-03 02:08] LABS: PARTIAL THROMBOPLASTIN TIME 45.1 SECONDS (25.4-37.6)
[2018-08-03] MEDS: SODIUM CHLORIDE 0.9% INJ 10 ML SYR IV SCH ×2 (06:00→17:16)
[2018-08-03] MEDS: LEVOTHYROXINE 125MCG TABLET (0.125MG) PO SCH (06:31)
[2018-08-03] MEDS: ATENOLOL 50 MG TAB PO SCH (07:55)
[2018-08-03] MEDS: ASPIRIN 81 MG CHEW TABLET PO SCH (07:55)
[2018-08-03] MEDS: ATORVASTATIN 20 MG TAB PO SCH (07:56)
[2018-08-03] MEDS: AUGMENTIN 875 MG TAB PO SCH ×2 (07:56→21:05)
[2018-08-03 08:51] LABS: HEMATOCRIT 39.9 % (36.0-47.0); HEMOGLOBIN 13.2 g/dl (12.0-15.5); MEAN CORPUSCULAR HEMOGLOBIN 29.5 pg (27.0-33.0); MEAN CORPUSCULAR HGB CONC 33.1 g/dl (32.0-36.5); MEAN CORPUSCULAR VOLUME 89.3 fl (80.0-96.0); PLATELET COUNT, AUTOMATED 195 10^3/uL (150-450); RED BLOOD COUNT 4.47 10^6/uL (4.00-5.40); WHITE BLOOD COUNT 7.9 10^3/uL (4.0-10.0)
[2018-08-03 08:59] LABS: PARTIAL THROMBOPLASTIN TIME 56.9 SECONDS (25.4-37.6)
[2018-08-03 09:10] LABS: BLOOD UREA NITROGEN 15 MG/DL (7-18); CALCIUM LEVEL 8.7 MG/DL (8.5-10.1); CARBON DIOXIDE LEVEL 26 MEQ/L (21-32); CHLORIDE LEVEL 101 MEQ/L (98-107); CREATININE FOR GFR 0.95 MG/DL (0.55-1.30); GLOMERULAR FILTRATION RATE > 60.0 (>51); GLUCOSE, FASTING 331 MG/DL (70-100); POTASSIUM SERUM 4.2 MEQ/L (3.5-5.1); SODIUM LEVEL 134 MEQ/L (136-145)
[2018-08-03] MEDS: HumuLIN R (REGULAR) INSULIN (NovoLIN R) **100U/ML** PER UNIT SC SCH ×3 (09:32→17:17)
[2018-08-03] MEDS ORDERED: LEVEMIR (INSULIN DETEMIR) 1 UNITS/0.01ML SC ONE (10:00)
--- NOTE | 2018-08-03 10:00 | IPNPDOC ---
Date Seen The patient was seen on 08/03/18. Progress Note SUBJECTIVE: Patient reports feeling well, facial swelling improving. IV site bleeding had stopped but had some bleeding in the mouth overnight that had also stopped. tPA is due to complete today. OBJECTIVE PHYSICAL EXAMINATION: VITAL SIGNS: Please see below. Eyes: Normal sclera, EOMI, EDVIN HENT: Atraumatic, neck supple, moist mucous membranes. R. facial swelling improving. Cardiovascular: Normal rate, normal rhythm. No murmurs appreciated. Pulmonary: Clear to auscultation b/l, no wheezing GI: Soft, nontender, nondistended Skin: Warm and dry Neuro: CN grossly intact. No focal deficits. Strengths equal b/l. Psych: oriented x 3 LABORATORY DATA, IMAGING STUDIES, MICROBIOLOGY: Please see below. ASSESSMENT AND PLAN: 1. Pulmonary embolism - hx of PE 06/2018 had been on Eliquis since then with a lapse in the past month. - Appear to be saturating well on RA with no tachycardia or other evidence of HD instability. - Troponin .19 on presentation, had trended down. - Subsegmental thrombi diffusely on CT scan. ECHO with evidence of R. heart strain and small to moderate pericardial effusion. - f/u Dr. Mejia for effusion in 4 weeks. - Cardiology and Vascular following. - IVC filter placed and initiated on thrombolysis 07/31/18. - d/c once cleared by Vascular. Appreciate assistance very much. - Plan on switching back to Eliquis prior to discharge. 2. NSTEMI likely type 2 - Troponin .19 on presentation and had trended down. - May be due to PE vs. Uncontrolled BP. Reportedly had elevated BP with diastolic at 118 (not documented however, might be at home or with EMS). - s/p ASA 325 mg. - No noted ST changes compare to prior. 3. DM - Hold home metformin - Accuchecks, ISS and Levemir (On lantus 12 units HS at home). - Increased from 15 ->25-> 35 units daily at this time, BS uncontrolled. 4. Fibromyalgia - c/w home meds 5. Hypothyroidism - c/w home meds. - has not taken synthroid for awhile, TSH 23 with free T4 .66. - Resumed on 125mcg, patient does not remember dose that that was given in the past when patient was in the hospital. to f/u for repeat TSH with PCP post discharge. 6. HTN - c/w home meds. - BP currently stable. 7. maxillary sinusitis - R. facial swelling with R. sided facial tenderness. - Started on Augmentin 08/01 with improvement. DVT ppx: Heparin drip at this time and SCD Code status: Full code Dispo: Home once stable. VS, I&O, 24H, Fishbone Vital Signs/I&O Vital Signs Date Time Temp Pulse Resp B/P (MAP) Pulse Ox O2 Delivery O2 Flow Rate FiO2 08/03/18 07:55 82 112/56 08/03/18 07:30 94 08/03/18 07:00 18 2.0 08/03/18 04:00 98.3 07/28/18 15:00 Room Air I&O- Last 24 Hours up to 6 AM 08/03/18 06:00 Intake Total 1384 ml Output Total 1350 ml Balance 34 ml Laboratory Data 24H LABS Laboratory Tests 2 08/02/18 11:29: Bedside Glucose (Misc Panel) 294H 08/02/18 17:05: Bedside Glucose (Misc Panel) 288H 08/02/18 20:10: Activated Partial Thromboplast Time 68.3H, Fibrinogen 539H 08/02/18 20:23: Bedside Glucose (Misc Panel) 246H 08/03/18 01:43: Activated Partial Thromboplast Time 45.1H, Fibrinogen 568H 08/03/18 08:39: Activated Partial Thromboplast Time 56.9H, Fibrinogen 533H, Nucleated Red Blood Cells % (auto) 0.0, Anion Gap 7L, Glomerular Filtration Rate > 60.0, Blood Urea Nitrogen 15, Creatinine 0.95, Sodium Level 134L, Potassium Level 4.2, Chloride Level 101, Carbon Dioxide Level 26, Calcium Level 8.7 CBC/BMP Laboratory Tests 08/02/18 20:10 08/03/18 01:43 08/03/18 08:39 Red Blood Count 4.47, Mean Corpuscular Volume 89.3, Mean Corpuscular Hemoglobin 29.5, Mean Corpuscular Hemoglobin Concent 33.1, Red Cell Distribution Width 13.5, Calcium Level 8.7 FERDINAND IRENE MD August 03, 2018 10:00
[2018-08-03 14:13] LABS: HEMATOCRIT 39.4 % (36.0-47.0); HEMOGLOBIN 13.2 g/dl (12.0-15.5)
[2018-08-03 14:54] LABS: PARTIAL THROMBOPLASTIN TIME 68.6 SECONDS (25.4-37.6)
[2018-08-03] MEDS ORDERED: DOCUSATE SODIUM 100 MG CAP PO PRN (17:00)
[2018-08-03] MEDS ORDERED: SENNA 8.6 MG TAB (SENOKOT) PO PRN (17:00)
[2018-08-03] MEDS ORDERED: HEPARIN DRIP 25,000 UNITS in APPROPRIATE DILUENT 1 EA IV SCH (18:18)
[2018-08-03] MEDS ORDERED: HEPARIN SOD (PORCINE) 5000 UNITS/ML VIAL IV PRN (18:30)
[2018-08-03] MEDS: LEVEMIR (INSULIN DETEMIR) 1 UNITS/0.01ML SC SCH (21:05)
[2018-08-03] MEDS: rOPINIRole 0.25 MG TAB(REQUIP) PO SCH (21:05)
[2018-08-03] MEDS: traZODone 50 MG TAB PO SCH (22:00)
[2018-08-04] VITALS (13 sets, daily range): BP systolic 87–116; BP diastolic 51–68
[2018-08-04 03:40] LABS: HEMATOCRIT 35.6 % (36.0-47.0); HEMOGLOBIN 11.9 g/dl (12.0-15.5); MEAN CORPUSCULAR HEMOGLOBIN 30.1 pg (27.0-33.0); MEAN CORPUSCULAR HGB CONC 33.4 g/dl (32.0-36.5); MEAN CORPUSCULAR VOLUME 90.1 fl (80.0-96.0); PLATELET COUNT, AUTOMATED 185 10^3/uL (150-450); RED BLOOD COUNT 3.95 10^6/uL (4.00-5.40); WHITE BLOOD COUNT 7.6 10^3/uL (4.0-10.0)
[2018-08-04 04:10] LABS: BLOOD UREA NITROGEN 16 MG/DL (7-18); CALCIUM LEVEL 8.2 MG/DL (8.5-10.1); CARBON DIOXIDE LEVEL 29 MEQ/L (21-32); CHLORIDE LEVEL 103 MEQ/L (98-107); CREATININE FOR GFR 0.83 MG/DL (0.55-1.30); GLOMERULAR FILTRATION RATE > 60.0 (>51); GLUCOSE, FASTING 226 MG/DL (70-100); POTASSIUM SERUM 3.9 MEQ/L (3.5-5.1); SODIUM LEVEL 137 MEQ/L (136-145)
[2018-08-04 04:16] LABS: PARTIAL THROMBOPLASTIN TIME 163.8 SECONDS (25.4-37.6)
[2018-08-04] MEDS: SODIUM CHLORIDE 0.9% INJ 10 ML SYR IV SCH (06:43)
[2018-08-04] MEDS: LEVOTHYROXINE 125MCG TABLET (0.125MG) PO SCH (06:44)
[2018-08-04] MEDS: AUGMENTIN 875 MG TAB PO SCH ×2 (08:45→19:53)
[2018-08-04] MEDS: ASPIRIN 81 MG CHEW TABLET PO SCH (08:45)
[2018-08-04] MEDS: ATORVASTATIN 20 MG TAB PO SCH (08:45)
[2018-08-04] MEDS: HumuLIN R (REGULAR) INSULIN (NovoLIN R) **100U/ML** PER UNIT SC SCH ×3 (08:45→19:53)
[2018-08-04] MEDS: ATENOLOL 50 MG TAB PO SCH (08:46)
[2018-08-04] MEDS ORDERED: WARF-23 PO (10:19)
[2018-08-04] MEDS ORDERED: LOVE1INJ SC ×2 (10:38→13:11)
[2018-08-04 10:48] LABS: INR 1.11; PROTHROMBIN TIME 14.4 SECONDS (12.1-14.4)
--- NOTE | 2018-08-04 10:53 | IPNPDOC ---
Date Seen The patient was seen on 08/04/18. Progress Note Vascular Surgery: Dr. Iraheta PCP: Dr Carrizales HPI: She is a 57-year-old female with past medical history of pulmonary embolism 06/25 on Eliquis, who presented to ER with complaints of worsening shortness of breath and chest discomfort. Patient stated that her symptoms started 07/29/18 when she felt pressure in her chest as well as worsening dyspnea on exertion. She admits she has not been taking her Eliquis for pulmonary embolism for about a month as she states she ran out and has trouble affording her copays. In ER, CT scan showed scattered bilateral pulmonary emboli involving various segmental branches of all lobes. Vascular Surgery consulted for PE and RV with dilation on TTE. Denies any fevers, chills, weakness, fatigue, Headache, Chest Pain, Shortness of breath, cough, palpitations, abdominal pain, N/V/D or changes in bowel or bladder habits. PAST MEDICAL HISTORY: 1. Fibromyalgia. 2. Diabetes mellitus, insulin-dependent. 3. Restless legs. 4. Hypertension. 5. Gastroesophageal reflux disease (GERD). 6. Hypothyroidism. 7. PE 06/25 PAST SURGICAL HISTORY: 1. Right foot surgery. 2. Cholecystectomy. 3. Thyroidectomy. PE: GEN: 57yoF. No acute distress. Alert and oriented x 3. HEENT: Normocephalic, atraumatic. Sclera are nonicteric. Conjunctiva without injection. Moist mucous membranes. CHEST: Regular rate and rhythm, +S1, +S2 LUNGS: Clear to auscultation bilaterally. No wheezes, rales, or rhonchi. Breathing appears symmetric and easy. ABD: Round, soft, non-tender, non-distended. +Bowel sounds throughout. EXT: No lower extremity edema appreciated. SKIN: [place], dry, warm. No rashes. NEURO: Alert and oriented x 3. No focal deficits appreciated. CXR No acute pulmonary disease. Electronically Signed by Sudeep Quiroga MD 07/29/2018 09:23 A CTA chest Scattered bilateral pulmonary emboli involving various segmental branches of all lobes. Small pericardial effusion. No acute infiltrate in either lung. Electronically Signed by Sudeep Quiroga MD 07/29/2018 09:25 A TTE Normal global left ventricular systolic function. There are some features of left ventricular diastolic dysfunction manifested by abnormal relaxation, grade I Trace to mild tricuspid regurgitation with probably mild pulmonary hypertension. The right heart chambers appeared to be mildly enlarged in limited views. The inferior vena cava was dilated, central venous pressure might be elevated. The study was technically limited due to poor acoustic window. This was compared with prior echocardiogram done on 06/25/2017 and at that time, the right heart chambers appeared to be normal. Pericardial effusion was present. Left ventricular systolic function was normal. A&P: Recurrent PE S/P thrombolysis 07/31/18. Alteplase D/cd Heparin gtt currently. TTE 07/29/18 , Possible mild enlargement of Rt heart chambers, mild Pulmonary HTN. Plan to recheck TTE today to re asses. Pt is reviewed and examined as per Dr Iraheta. Plan/recommendations discussed with Dr Thurman. Recommend Coumadin AC, Dr Iraheta's office can manage as outpt. Standing order for INR is left on chart. Coumadin 10 mg today then 5 mg daily, Baseline INR today and recheck INR Friday. Lovenox SQ Q12 until INR is therapeutic. Lovenox and Coumadin teaching. Reinforce compliance. From Vascular standpoint OK for DC today after TTE is obtained. H/O prior PE. Appears to have had hypercoagulable FLORES completed 06/25. Had been Off Eliquis x 1 mo related to cost per pt. DVT prophylaxis. Heparin gtt. VS, I&O, 24H, Fishbone Vital Signs/I&O Vital Signs Date Time Temp Pulse Resp B/P (MAP) Pulse Ox O2 Delivery O2 Flow Rate FiO2 08/04/18 08:00 72 16 100/51 (67) 96 08/04/18 07:00 98.1 08/03/18 07:00 2.0 I&O- Last 24 Hours up to 6 AM 08/04/18 06:00 Intake Total 1775.5 ml Output Total 1700 ml Balance 75.5 ml Laboratory Data 24H LABS Laboratory Tests 2 08/03/18 11:51: Bedside Glucose (Misc Panel) 446H 08/03/18 14:03: Activated Partial Thromboplast Time 68.6H, Fibrinogen 594H 08/03/18 16:59: Bedside Glucose (Misc Panel) 242H 08/03/18 20:12: Activated Partial Thromboplast Time 64.8H 08/03/18 20:40: Bedside Glucose (Misc Panel) 243H 08/04/18 03:11: Nucleated Red Blood Cells % (auto) 0.0, Activated Partial Thromboplast Time 163.8*H, Anion Gap 5L, Glomerular Filtration Rate > 60.0, Blood Urea Nitrogen 16, Creatinine 0.83, Sodium Level 137, Potassium Level 3.9, Chloride Level 103, Carbon Dioxide Level 29, Calcium Level 8.2L 08/04/18 07:34: Bedside Glucose (Misc Panel) 236H CBC/BMP Laboratory Tests 08/03/18 14:03 08/04/18 03:11 Red Blood Count 3.95 L, Mean Corpuscular Volume 90.1, Mean Corpuscular Hemoglobin 30.1, Mean Corpuscular Hemoglobin Concent 33.4, Red Cell Distribution Width 13.5, Calcium Level 8.2 L Elyse Ivory August 04, 2018 10:53
--- NOTE | 2018-08-04 11:33 | IPNPDOC ---
Date Seen The patient was seen on 08/04/18. Progress Note SUBJECTIVE: Patient denies any complaints. No bleeding anywhere overnight. Chest heaviness with deep inspiration had resolved. Reports breathing better. Facial swelling continues to improve. OBJECTIVE PHYSICAL EXAMINATION: VITAL SIGNS: Please see below. Eyes: Normal sclera, EOMI, EDVIN HENT: Atraumatic, neck supple, moist mucous membranes. minimal R. facial swelling. Cardiovascular: Normal rate, normal rhythm. No murmurs appreciated. Pulmonary: Clear to auscultation b/l, no wheezing GI: Soft, nontender, nondistended Skin: Warm and dry Neuro: CN grossly intact. No focal deficits. Strengths equal b/l. Psych: oriented x 3 LABORATORY DATA, IMAGING STUDIES, MICROBIOLOGY: Please see below. ASSESSMENT AND PLAN: 1. Pulmonary embolism - hx of PE 06/2018 had been on Eliquis since then with a lapse in the past month. Financial vs. noncompliance? - Subsegmental thrombi diffusely on CT scan. ECHO with evidence of R. heart strain and small to moderate pericardial effusion. - f/u Dr. Mejia for effusion in 4 weeks. - Cardiology and Vascular following. - IVC filter placed and initiated on thrombolysis 07/31/18. - Cleared from vascular. Will switch to warfarin with Lovenox bridging today. d/c heparin drip. - Plan for d/c tomorrow. 2. NSTEMI likely type 2 - Troponin .19 on presentation and had trended down. - May be due to PE vs. Uncontrolled BP. Reportedly had elevated BP with diastolic at 118 (not documented however, might be at home or with EMS). - s/p ASA 325 mg. - No noted ST changes compare to prior. 3. DM - Hold home metformin - Accuchecks, ISS and Levemir (On lantus 12 units HS at home). - Increased from 15 ->25-> 35->45 units daily at this time, BS uncontrolled but improving. - Patient only on 12 units of Levemir at home while taking 18 units of Regular insulin TID with meals? BS reportedly in 300s. - Will benefit from discharging on a higher dose of long acting insulin instead and maybe cut down on meal time insulin. Of note, she is also on metformin at home and held here. 4. Fibromyalgia - c/w home meds 5. Hypothyroidism - c/w home meds. - has not taken synthroid for awhile, TSH 23 with free T4 .66. - Resumed on 125mcg, patient does not remember dose that that was given in the past when patient was in the hospital. to f/u for repeat TSH with PCP post discharge. 6. HTN - c/w home meds. - BP currently stable. 7. maxillary sinusitis - R. facial swelling with R. sided facial tenderness. - Started on Augmentin 08/01 with improvement. DVT ppx: Heparin drip at this time and SCD Code status: Full code Dispo: Home once stable. VS, I&O, 24H, Fishbone Vital Signs/I&O Vital Signs Date Time Temp Pulse Resp B/P (MAP) Pulse Ox O2 Delivery O2 Flow Rate FiO2 08/04/18 08:00 72 16 100/51 (67) 96 08/04/18 07:00 98.1 08/03/18 07:00 2.0 I&O- Last 24 Hours up to 6 AM 08/04/18 06:00 Intake Total 1775.5 ml Output Total 1700 ml Balance 75.5 ml Laboratory Data 24H LABS Laboratory Tests 2 08/03/18 11:51: Bedside Glucose (Misc Panel) 446H 08/03/18 14:03: Activated Partial Thromboplast Time 68.6H, Fibrinogen 594H 08/03/18 16:59: Bedside Glucose (Misc Panel) 242H 08/03/18 20:12: Activated Partial Thromboplast Time 64.8H 08/03/18 20:40: Bedside Glucose (Misc Panel) 243H 08/04/18 03:11: Nucleated Red Blood Cells % (auto) 0.0, Prothrombin Time 14.4, Prothromb Time International Ratio 1.11, Activated Partial Thromboplast Time 163.8*H, Anion Gap 5L, Glomerular Filtration Rate > 60.0, Blood Urea Nitrogen 16, Creatinine 0.83, Sodium Level 137, Potassium Level 3.9, Chloride Level 103, Carbon Dioxide Level 29, Calcium Level 8.2L 08/04/18 07:34: Bedside Glucose (Misc Panel) 236H CBC/BMP Laboratory Tests 08/03/18 14:03 08/04/18 03:11 Red Blood Count 3.95 L, Mean Corpuscular Volume 90.1, Mean Corpuscular Hemoglobin 30.1, Mean Corpuscular Hemoglobin Concent 33.4, Red Cell Distribution Width 13.5, Calcium Level 8.2 L FERDINAND IRENE MD August 04, 2018 11:33
[2018-08-04] MEDS: ENOXAPARIN 100MG/1ML SYRINGE (J1650) SC SCH (13:41)
[2018-08-04] MEDS ORDERED: WARFARIN SOD 5 MG TAB PO SCH (17:00)
[2018-08-04] MEDS ORDERED: WARFARIN SOD 5 MG TAB PO ONE (17:00)
[2018-08-04] MEDS: rOPINIRole 0.25 MG TAB(REQUIP) PO SCH (19:53)
[2018-08-04] MEDS: traZODone 50 MG TAB PO SCH (19:53)
[2018-08-04] MEDS: LEVEMIR (INSULIN DETEMIR) 1 UNITS/0.01ML SC SCH (19:54)
[2018-08-05] MEDS: ENOXAPARIN 100MG/1ML SYRINGE (J1650) SC SCH ×2 (01:48→13:04)
[2018-08-05] MEDS: LEVOTHYROXINE 125MCG TABLET (0.125MG) PO SCH (05:36)
[2018-08-05 06:00] VITALS: BP 119/78
[2018-08-05 07:08] LABS: INR 1.05; PROTHROMBIN TIME 13.8 SECONDS (12.1-14.4)
[2018-08-05 07:09] LABS: HEMATOCRIT 34.5 % (36.0-47.0); HEMOGLOBIN 11.4 g/dl (12.0-15.5); MEAN CORPUSCULAR VOLUME 90.8 fl (80.0-96.0); PLATELET COUNT, AUTOMATED 180 10^3/uL (150-450)
[2018-08-05 07:27] LABS: BLOOD UREA NITROGEN 14 MG/DL (7-18); CARBON DIOXIDE LEVEL 26 MEQ/L (21-32); CHLORIDE LEVEL 102 MEQ/L (98-107); CREATININE FOR GFR 0.84 MG/DL (0.55-1.30); GLOMERULAR FILTRATION RATE > 60.0 (>51); GLUCOSE, FASTING 251 MG/DL (70-100); POTASSIUM SERUM 3.9 MEQ/L (3.5-5.1); SODIUM LEVEL 136 MEQ/L (136-145)
[2018-08-05] MEDS ORDERED: HumuLIN R (REGULAR) INSULIN (NovoLIN R) **100U/ML** PER UNIT SC SCH (07:48)
[2018-08-05] MEDS: ATORVASTATIN 20 MG TAB PO SCH (08:38)
[2018-08-05] MEDS: AUGMENTIN 875 MG TAB PO SCH ×2 (08:38→22:10)
[2018-08-05] MEDS: ASPIRIN 81 MG CHEW TABLET PO SCH (08:38)
[2018-08-05] MEDS: ATENOLOL 50 MG TAB PO SCH (08:41)
[2018-08-05] MEDS: HumuLIN R (REGULAR) INSULIN (NovoLIN R) **100U/ML** PER UNIT SC SCH ×3 (08:46→17:42)
[2018-08-05 14:00] VITALS: BP 108/65
--- NOTE | 2018-08-05 14:11 | IPNPDOC ---
Subjective Date Seen The patient was seen on 08/05/18. Subjective Chief Complaint/HPI Patient seen and examined at the bedside. Reports that she has been noticing an increase in swelling in her right upper extremity where the PICC line is. Denies any pain associated in the area. Objective Physical Examination General Exam: Positive: Alert, Cooperative, No Acute Distress, Other (Morbidly obese) ENT Exam: Positive: Atraumatic Neck Exam: Negative: JVD Chest Exam: Positive: Clear to auscultation, Normal air movement Heart Exam: Positive: Rate Normal, Normal S1, Normal S2 Abdomen Exam: Positive: Soft; Negative: Tenderness Extremity Exam: Positive: Normal pulses, Other (RUE swelling/contusion noted proximal to the elbow joint and on the medial surface where PICC Line is. No tenderness to palpation. No active bleeding noted.); Negative: Tenderness Neuro Exam: Positive: Normal Tone, Sensation Intact Psych Exam: Positive: Oriented x 3 Assessment /Plan Plan/VTE VTE Prophylaxis Ordered?: Yes Plan Pulmonary embolism Hx of PE diagnosed on 06/2018, patient had been discharged on Eliquis However, the patient did not take the AC for the last 1 month as she states that she did not refill the medication Returned with complaints of worsening SOB, chest pain--> Subsegmental thrombi diffusely on CT scan on 07/28/18. 2D ECHO with evidence of R. heart strain and small to moderate pericardial effusion. - f/u Dr. Mejia for effusion in 4 weeks. Cardiology and Vascular following. s/p IVC filter placed and thrombolysis treatment 07/31/18. Hemodynamically stable at this time Currently on Lovenox SC BID bridge to Coumadin--Will cont to monitor Patient counseled at length regarding adherence RUE Swelling, Hematoma? U/S of the RUE ordered NSTEMI likely type 2 EKG with no acute ST changes Troponin .19 on presentation and has trended down overall May be due to PE vs. Uncontrolled BP Cont ASA, Statin, Atenolol Cardiology on board DM Cont regimen as ordered Fibromyalgia Cont home meds Hypothyroidism Cont Levothyroxine HTN Cont Atenolol Maxillary sinusitis On Trial of Augmentin, improved Restless Leg Syndrome Cont Ropinrole DVT ppx On Lovenox SC Dispo--pending continued clinical improvement, RUE U/S to eval Hematoma. CM/SW on board. VS, I&O, 24H, Fishbone Vital Signs/I&O Vital Signs Date Time Temp Pulse Resp B/P (MAP) Pulse Ox O2 Delivery O2 Flow Rate FiO2 08/05/18 08:41 73 110/65 08/05/18 06:00 97.8 16 93 08/03/18 07:00 2.0 I&O- Last 24 Hours up to 6 AM 08/05/18 06:00 Intake Total 775 ml Output Total 1100 ml Balance -325 ml Laboratory Data 24H LABS Laboratory Tests 2 08/04/18 16:54: Bedside Glucose (Misc Panel) 271H 08/04/18 19:44: Bedside Glucose (Misc Panel) 291H 08/05/18 06:36: Nucleated Red Blood Cells % (auto) 0.0, Prothrombin Time 13.8, Prothromb Time International Ratio 1.05, Anion Gap 8, Glomerular Filtration Rate > 60.0, Blood Urea Nitrogen 14, Creatinine 0.84, Sodium Level 136, Potassium Level 3.9, Chloride Level 102, Carbon Dioxide Level 26, Calcium Level 8.0L 08/05/18 11:45: Bedside Glucose (Misc Panel) 242H CBC/BMP Laboratory Tests 08/05/18 06:36 Red Blood Count 3.80 L, Mean Corpuscular Volume 90.8, Mean Corpuscular Hemoglobin 30.0, Mean Corpuscular Hemoglobin Concent 33.0, Red Cell Distribution Width 13.7, Calcium Level 8.0 L JORGE DAVEY MD August 05, 2018 14:11
--- NOTE | 2018-08-05 14:17 | REP ---
Clinical: Hematoma. Technique: Real time bustillo scale and color Doppler evaluation using linear high frequency transducer. Findings: Ultrasound examination of the right upper extremity is limited due to recently placed PICC line identified in the subclavian and brachial vein. The jugular, subclavian, axillary, and cephalic veins are normal. Evaluation of the brachial and basilic veins is limited but no obvious thrombus is appreciated. Evaluation through the level of the antecubital fossa was performed and demonstrates a areas of bruising without discrete hematoma identified. Incidental partially calcified lymph node in the left neck measures 13 x 8 x 6 mm. Impression: 1. Somewhat limited examination as described above, but without obvious venous thrombosis. 2. Bruising in the region of the antecubital fossa without obvious discrete underlying hematoma. Electronically Signed by Dave Us MD 08/05/2018 02:08 P
[2018-08-05] MEDS ORDERED: WARFARIN SOD 5 MG TAB PO SCH (17:00)
[2018-08-05 22:00] VITALS: BP 119/75
[2018-08-05] MEDS: traZODone 50 MG TAB PO SCH (22:10)
[2018-08-05] MEDS: rOPINIRole 0.25 MG TAB(REQUIP) PO SCH (22:10)
[2018-08-05] MEDS: LEVEMIR (INSULIN DETEMIR) 1 UNITS/0.01ML SC SCH (22:10)
[2018-08-06] MEDS: ENOXAPARIN 100MG/1ML SYRINGE (J1650) SC SCH ×2 (00:04→12:13)
[2018-08-06] MEDS: LEVOTHYROXINE 125MCG TABLET (0.125MG) PO SCH (05:52)
[2018-08-06 06:02] LABS: HEMATOCRIT 36.5 % (36.0-47.0); HEMOGLOBIN 11.9 g/dl (12.0-15.5); MEAN CORPUSCULAR HEMOGLOBIN 29.2 pg (27.0-33.0); MEAN CORPUSCULAR HGB CONC 32.6 g/dl (32.0-36.5); MEAN CORPUSCULAR VOLUME 89.5 fl (80.0-96.0); PLATELET COUNT, AUTOMATED 198 10^3/uL (150-450); RED BLOOD COUNT 4.08 10^6/uL (4.00-5.40)
[2018-08-06 06:17] LABS: INR 1.05; PROTHROMBIN TIME 13.8 SECONDS (12.1-14.4)
[2018-08-06 06:30] LABS: BLOOD UREA NITROGEN 13 MG/DL (7-18); CARBON DIOXIDE LEVEL 29 MEQ/L (21-32); CHLORIDE LEVEL 105 MEQ/L (98-107); CREATININE FOR GFR 0.81 MG/DL (0.55-1.30); GLOMERULAR FILTRATION RATE > 60.0 (>51); GLUCOSE, FASTING 153 MG/DL (70-100); SODIUM LEVEL 139 MEQ/L (136-145)
[2018-08-06] MEDS: AUGMENTIN 875 MG TAB PO SCH (08:19)
[2018-08-06] MEDS: ATORVASTATIN 20 MG TAB PO SCH (08:19)
[2018-08-06] MEDS: HumuLIN R (REGULAR) INSULIN (NovoLIN R) **100U/ML** PER UNIT SC SCH ×2 (08:19→12:13)
[2018-08-06] MEDS: ASPIRIN 81 MG CHEW TABLET PO SCH (08:19)
[2018-08-06 08:20] VITALS: BP 110/65
[2018-08-06] MEDS: ATENOLOL 50 MG TAB PO SCH (08:20)
[2018-08-06] MEDS ORDERED: TOUJ1.2I SC (11:53)
[2018-08-06] MEDS ORDERED: ATEN50TA2 PO (12:46)
--- NOTE | 2018-08-06 19:45 | ECHO ---
DATE OF PROCEDURE: 08/05/2018 REFERRING PHYSICIAN: ANRDEA Velazquez PATIENT LOCATION: Room 5147 REASON FOR ECHOCARDIOGRAM: Pulmonary embolism. 2D MEASUREMENTS IVS: 1.0 cm LV: 4.6 cm LVPW: 1.0 cm LA: 3.6 cm Aorta: 2.7 cm RV: 2.0 cm IVC 2.1 cm DOPPLER MEASUREMENTS: Peak velocity across the aortic valve: 1.4 m/s Peak velocity across the LVOT: 1.2 m/s Mitral E: 0.57, Mitral A: 0.61 with a ratio of 0.9 Maximum tricuspid valve velocity: 2.2 m/s 2D COMMENTS: 1. Normal left ventricular size, wall thickness, and normal global left ventricular systolic function. The estimated left ventricular systolic ejection fraction is 60-65%. 2. Normal left atrium. The right atrium and the right ventricle appeared to be normal in size. 3. The atrial septum appeared to be normal without evidence of defect or shunt. 4. Normal aortic root. 5. Probably moderate pericardial effusion, no evidence of cardiac tamponade. 6. Mildly calcified aortic valve with normal leaflet excursion. Normal mitral valve, tricuspid valve, and pulmonic valve. The proximal pulmonary artery branches were not well visualized. 7. The inferior vena cava was mildly enlarged, central venous pressure might be elevated. DOPPLER: No significant valvular abnormalities detected but trace tricuspid regurgitation. The calculated pulmonary artery systolic pressure. Abnormal relaxation pattern was noted across the mitral valve leaflets and mitral valve annulus consistent with features of grade 1 left ventricular diastolic dysfunction. IMPRESSION 1. Normal global left ventricular systolic function. There are some features of left ventricular diastolic dysfunction, abnormal relaxation. 2. Aortic valve sclerosis without stenosis or aortic regurgitation. 3. Trace tricuspid regurgitation with a normal calculated pulmonary artery systolic pressure. 4. Probably moderate pericardial effusion, no evidence of cardiac tamponade. 5. The right atrium and the right ventricle appeared to be normal in size. 6. The study was technically limited due to poor acoustic window.
--- NOTE | 2018-08-07 14:13 | DS.PDOC ---
Discharge Summary General Date of Admission July 28, 2018 at 15:58 Date of Discharge 08/06/18 Specialist/Consultants Involve Dr. Iraheta of Vascular Surgery, Dr. Mejia of Cardiology Discharge Summary PROCEDURES PERFORMED DURING STAY: s/p IVC Filter placement and thrombolysis 07/31/18 ADMITTING/DISCHARGE DIAGNOSES: Pulmonary embolism RUE Swelling, negative for Hematoma NSTEMI likely type 2 Diabetes mellitus Fibromyalgia Hypothyroidism Hypertension Maxillary sinusitis Restless leg syndrome COMPLICATIONS/CHIEF COMPLAINT: Diabetes Mellitus Elevated Troponin Pulmonary Embo. HISTORY OF PRESENT ILLNESS: . 57-year-old female with past medical history of pulmonary embolism on Eliquis, diabetes, hypertension, fibromyalgia, restless leg syndrome, and hypothyroidism presents to the ER with a chief complaint of worsening shortness of breath and chest discomfort. The patient stated that her symptoms started all of a sudden one day prior to presenting to the ER. The patient endorsed that she had not been taking her anticoagulation medication for about 1 month, as she has not gotten it refilled with her physician. In the ER, a CT scan of the chest revealed bilateral diffuse segmental embolisms. The patient was noted to be hemodynamically stable, and saturating 95% on room air. The patient was admitted to the hospitalist service for further evaluation and management. Pulmonary embolism Hx of PE diagnosed on 06/2018, patient had been discharged on Eliquis However, the patient did not take the AC for the last 1 month as she states that she did not refill the medication Returned with complaints of worsening SOB, chest pain--> Subsegmental thrombi diffusely on CT scan on 07/28/18. 2D ECHO with evidence of R. heart strain and small to moderate pericardial effusion. - f/u Dr. Mejia for effusion in 4 weeks. Cardiology and Vascular input appreciated s/p IVC filter placed and thrombolysis treatment 07/31/18. Hemodynamically stable at this time Currently on Lovenox SC BID bridge to Coumadin--F/U with PCP on 08/10/18 for monitoring of INR Patient counseled at length regarding adherence RUE Swelling, Hematoma? U/S of the RUE negative for hematoma NSTEMI likely type 2 EKG with no acute ST changes Troponin .19 on presentation and has trended down overall May be due to PE vs. Uncontrolled BP Cont ASA, Statin, Atenolol Cardiology on board DM Cont regimen as ordered Fibromyalgia Cont home meds Hypothyroidism Cont Levothyroxine HTN Cont Atenolol Maxillary sinusitis s/p Augmentin Restless Leg Syndrome Cont Ropinrole DISCHARGE MEDICATIONS: Please see below. ALLERGIES: Please see below. PHYSICAL EXAMINATION ON DISCHARGE: VITAL SIGNS: Please see below. General Exam: Positive: Alert, Cooperative, No Acute Distress, Other (Morbidly obese) ENT Exam: Positive: Atraumatic Neck Exam: Negative: JVD Chest Exam: Positive: Clear to auscultation, Normal air movement Heart Exam: Positive: Rate Normal, Normal S1, Normal S2 Abdomen Exam: Positive: Soft; Negative: Tenderness Extremity Exam: Positive: Normal pulses, Other (RUE swelling/contusion noted proximal to the elbow joint and on the medial surface where PICC Line is. No tenderness to palpation. No active bleeding noted.); Negative: Tenderness Neuro Exam: Positive: Normal Tone, Sensation Intact Psych Exam: Positive: Oriented x 3 LABORATORY DATA: Please see below. IMAGING: CHEST, SINGLE VIEW: There is no evidence of acute infiltrate. No pleural effusion is seen. The heart is normal in size. The mediastinal silhouette is unremarkable. The visualized osseous structures are intact. IMPRESSION: No acute pulmonary disease. CT ANGIOGRAM OF THE CHEST: TECHNIQUE: Axial contrast enhanced images from the thoracic inlet to the upper abdomen using 100 mL Isovue 370 intravenous contrast material with multiplanar reformations. There are filling defects in the segmental branches of all lobes both on the right and on the left compatible with scattered bilateral pulmonary emboli. There is no thoracic aortic aneurysm or dissection. The heart is not enlarged. There is a small pericardial effusion. No pleural effusion is seen. No infiltrate is seen in either lung. The patient has had a prior cholecystectomy. IMPRESSION: Scattered bilateral pulmonary emboli involving various segmental branches of all lobes. Small pericardial effusion. No acute infiltrate in either lung. Clinical: Pulmonary embolus . Technique: Quiroga scale and color Doppler evaluation using linear high frequency transducer. Findings: Ultrasound examination of the right and left lower extremity deep venous structures from the common femoral vein to the popliteal vein demonstrates normal compressibility flow and wave patterns in response to respiration and augmentation. There is no evidence for deep venous thrombosis. Impression: No evidence for deep venous thrombosis. Clinical: Hematoma. Technique: Real time quiroga scale and color Doppler evaluation using linear high frequency transducer. Findings: Ultrasound examination of the right upper extremity is limited due to recently placed PICC line identified in the subclavian and brachial vein. The jugular, subclavian, axillary, and cephalic veins are normal. Evaluation of the brachial and basilic veins is limited but no obvious thrombus is appreciated. Evaluation through the level of the antecubital fossa was performed and demonstrates a areas of bruising without discrete hematoma identified. Incidental partially calcified lymph node in the left neck measures 13 x 8 x 6 mm. Impression: 1. Somewhat limited examination as described above, but without obvious venous thrombosis. 2. Bruising in the region of the antecubital fossa without obvious discrete underlying hematoma. DATE OF PROCEDURE: 07/29/2018 DATE OF : 1960 AGE: 57 REFERRING PROVIDER: Dr. Esvin Thurman PATIENT LOCATION: Room 3214 REASON FOR THE ECHOCARDIOGRAM: Pulmonary embolism. 2-D MEASUREMENTS: IVS: 1.1 cm LV: 3.5 cm LVPW: 1.1 cm LA: 3.6 cm Aorta: 2.6 cm IVC: 2.3 cm DOPPLER MEASUREMENTS: Peak velocity across the aortic valve: 1.6 m/s Peak velocity across the LVOT: 1.1 m/s Mitral E: 0.52, Mitral A: 0.7 with a ratio of 0.7 Maximum tricuspid valve velocity: 2.5 m/s 2-D COMMENTS: 1. Normal left ventricular size, wall thickness, and normal global left ventricular systolic function. The estimated left ventricular systolic function is 60%. 2. Normal left atrium. The right atrium and right ventricle appeared to be mildly enlarged in limited views. 3. The atrial septum appeared to be normal without evidence of defect or shunt. 4. Normal aortic root. 5. A small to moderate pericardial effusion was noted, no evidence of cardiac tamponade. 6. Mildly calcified aortic valve with normal leaflet excursion. Normal mitral valve, tricuspid valve, and pulmonic valve. The proximal pulmonary artery branches were not well visualized. 7. The inferior vena cava is dilated, central venous pressure is probably elevated. DOPPLER: It detects trace to mild tricuspid regurgitation, trace pulmonic regurgitation. The calculated pulmonary artery systolic pressure varies between 30-40 mmHg. Abnormal relaxation pattern was noted across the mitral valve leaflets as well as the mitral valve annulus consistent with features of grade 1 left ventricular diastolic dysfunction. IMPRESSION: 1. Normal global left ventricular systolic function. There are some features of left ventricular diastolic dysfunction manifested by abnormal relaxation, grade 1. 2. Aortic valve sclerosis without stenosis or aortic regurgitation. 3. Trace to mild tricuspid regurgitation with probably mild pulmonary hypertension. The right heart chambers appeared to be mildly enlarged in limited views. 4. Small to moderate pericardial effusion was noted, no evidence of cardiac tamponade. 5. The inferior vena cava was dilated, central venous pressure might be elevated. 6. The study was technically limited due to poor acoustic window. 7. This was compared with prior echocardiogram done on 06/25/2017 and at that time, the right heart chambers appeared to be normal. Pericardial effusion was present. Left ventricular systolic function was normal. DATE OF PROCEDURE: 08/05/2018 REFERRING PHYSICIAN: ANDREA Velazquez PATIENT LOCATION: Room 5147 REASON FOR ECHOCARDIOGRAM: Pulmonary embolism. 2D MEASUREMENTS IVS: 1.0 cm LV: 4.6 cm LVPW: 1.0 cm LA: 3.6 cm Aorta: 2.7 cm RV: 2.0 cm IVC 2.1 cm DOPPLER MEASUREMENTS: Peak velocity across the aortic valve: 1.4 m/s Peak velocity across the LVOT: 1.2 m/s Mitral E: 0.57, Mitral A: 0.61 with a ratio of 0.9 Maximum tricuspid valve velocity: 2.2 m/s 2D COMMENTS: 1. Normal left ventricular size, wall thickness, and normal global left ventricular systolic function. The estimated left ventricular systolic ejection fraction is 60-65%. 2. Normal left atrium. The right atrium and the right ventricle appeared to be normal in size. 3. The atrial septum appeared to be normal without evidence of defect or shunt. 4. Normal aortic root. 5. Probably moderate pericardial effusion, no evidence of cardiac tamponade. 6. Mildly calcified aortic valve with normal leaflet excursion. Normal mitral valve, tricuspid valve, and pulmonic valve. The proximal pulmonary artery branches were not well visualized. 7. The inferior vena cava was mildly enlarged, central venous pressure might be elevated. DOPPLER: No significant valvular abnormalities detected but trace tricuspid regurgitation. The calculated pulmonary artery systolic pressure. Abnormal relaxation pattern was noted across the mitral valve leaflets and mitral valve annulus consistent with features of grade 1 left ventricular diastolic dysfunction. IMPRESSION 1. Normal global left ventricular systolic function. There are some features of left ventricular diastolic dysfunction, abnormal relaxation. 2. Aortic valve sclerosis without stenosis or aortic regurgitation. 3. Trace tricuspid regurgitation with a normal calculated pulmonary artery systolic pressure. 4. Probably moderate pericardial effusion, no evidence of cardiac tamponade. 5. The right atrium and the right ventricle appeared to be normal in size. 6. The study was technically limited due to poor acoustic window. PROGNOSIS: Fair ACTIVITY: As tolerated. DIET: Carb consistent diet DISCHARGE PLAN: DISPOSITION: 06 Home Health Service. DISCHARGE INSTRUCTIONS: Follow-up with PCP on 08/10/18 for INR check. Follow-up with Dr. Mejia of Cardiology in 4 weeks for follow-up of pericardial effusion. Return to the ER for any acute emergencies. DISCHARGE CONDITION: Stable. TIME SPENT ON DISCHARGE: Greater than 30 minutes. Vital Signs/I&Os Vital Signs Date Time Temp Pulse Resp B/P (MAP) Pulse Ox O2 Delivery O2 Flow Rate FiO2 08/06/18 08:20 75 110/65 08/05/18 22:00 97.5 18 97 08/03/18 07:00 2.0 I&O- Last 24 Hours up to 6 AM 08/07/18 05:59 Intake Total 600 ml Output Total 500 ml Balance 100 ml Discharge Medications Scheduled Atenolol (Atenolol) 50 Mg Tab, 50 MG PO DAILY PT STATES SHE HAS BEEN OUT OF THIS MED Atorvastatin Calcium (Atorvastatin Calcium) 20 Mg Tab, 20 MG PO DAILY, (Reported) Enoxaparin Sodium (Lovenox) 40 Mg/0.4 Ml Syringe, 90 MG SC BID Insulin Glargine,Hum.rec.anlog (Vincent Solminniear) 300 Unit/Ml Inj, 30 UNIT SC QHS Insulin Human Regular (Humulin R) 100 Unit/1 Ml Vial, 20 UNITS SC TID, (Reported) Metformin HCl (Metformin HCl) 1,000 Mg Tab, 1,000 MG PO BID, (Reported) Ropinirole HCl (Ropinirole HCl) 0.25 Mg Tab, 0.25 MG PO QHS, (Reported) Trazodone HCl (Trazodone HCl) 50 Mg Tab, 50 MG PO QHS, (Reported) Warfarin Sodium (Warfarin Sodium) 5 Mg Tablet, 5 MG PO DAILY Allergies Coded Allergies: Sulfa (Sulfonamide Antibiotics) (Verified Allergy, Mild, rash, 06/17/18) JORGE DAVEY MD August 07, 2018 14:13
--- NOTE | 2018-08-15 10:06 | REPIR ---
DATE OF PROCEDURE: 07/31/2018 PREOPERATIVE DIAGNOSES: Pulmonary embolus with cardiopulmonary strain and cor pulmonale with increased troponin. POSTOPERATIVE DIAGNOSES: Pulmonary embolus with cardiopulmonary strain and cor pulmonale with increased troponin. PROCEDURE: Ultrasound-guided right brachial vein cannulation, inferior vena cava filter placement with venogram, 48 cm peripherally inserted central catheter (PICC) line placement, insulation of tPA SURGEON: Dr. Janine Iraheta. DEPARTMENT COORDINATOR: Elkin Hare and Sommer Velazquez. ANESTHESIA: Local with 10 mL of 2% lidocaine mixed with 0.5% Marcaine. FLUORO TIME: 1.3 minutes. CONTRAST: 5 mL, tPA 10 mg. COMPLICATIONS: None. DRAINS: None. SPECIMENS: None INDICATION: The patient is a 57-year-old female with pulmonary embolus, which is bilateral and massive and cardiac strain noted on echo as well as increased troponin. The patient will undergo placement of the inferior vena cava filter and a pulmonary thrombolysis. DESCRIPTION OF PROCEDURE: The patient was taken to the angiography suite, placed supine on the angiography room table and then prepped and draped in a standard surgical fashion. The ultrasound was used to guide cannulation of the right brachial vein after which a catheter was advanced into the inferior vena cava and inferior vena cava gram was performed. The inferior vena cava filter was placed below level the renal veins after which the catheter was removed and a PICC line was placed, tPA was instilled through the PICC line with 10 mg tPA. The PICC was placed with the tip in the superior vena cava right atrial junction and pulmonary thrombolysis was initiated. Dressings were applied. The patient tolerated the procedure well. All instrument, sponge, needle counts were correct at the end of the case. There were no complications. Dr. Iraheta was present for and directed the entire case. The patient was transferred to the intensive care unit (ICU) for pulmonary thrombolysis
--- NOTE | 2018-08-17 19:19 | RO ---
DATE OF PROCEDURE: 08/02/2018 PREOPERATIVE DIAGNOSES: Pulmonary embolus with cor pulmonale and elevated troponin. POSTOPERATIVE DIAGNOSES: Pulmonary embolus with cor pulmonale and elevated troponin. PROCEDURE: Pulmonary thrombolysis followup. ATTENDING SURGEON: Dr. Aniceto Iraheta CONDUIT WORKER: None. ANESTHESIA: INDICATION: The patient is a 57-year-old female who has pulmonary embolus and cardiac strain who is undergoing a pulmonary thrombolysis. DESCRIPTION OF PROCEDURE: The patient was evaluated in the intensive care unit (ICU) and noted to have no signs of bleeding. Patient notes that her breathing has improved but still has some shortness of breath with deep inspiration. The plan will be to continue the pulmonary thrombolysis with tissue plasminogen activator (tPA) and heparin. Patient will undergo re-evaluation with possible in 24 hours.
== END 2018-08-06 13:55 | disposition home health service (06) | DRG 166 ==
LOC: M ED 12:34 → EDBD 12:34 → M ED INP 15:58 → M PCU 17:15 → M ICU 07-31 13:45 → M MS5PR 08-04 14:10
PROVIDERS: ADMIT Student in an Organized Health Care Education/Training Program; ATTEND Internal Medicine
PROC: 06H03DZ Insertion of Intraluminal Device into Inferior Vena Cava, Percutaneous Approach (ICD-10-PCS; principal; 2018-07-31)
PROC: 02HV33Z Insertion of Infusion Device into Superior Vena Cava, Percutaneous Approach (ICD-10-PCS; 2018-07-31)
PROC: 3E03317 Introduction of Other Thrombolytic into Peripheral Vein, Percutaneous Approach (ICD-10-PCS; 2018-07-31)
DX: I26.99 Other pulmonary embolism without acute cor pulmonale (principal); I21.A1 Myocardial infarction type 2; E11.9 Type 2 diabetes mellitus without complications; I10 Essential (primary) hypertension; M79.7 Fibromyalgia; E89.0 Postprocedural hypothyroidism; G25.81 Restless legs syndrome; Z90.49 Acquired absence of other specified parts of digestive tract; Z79.4 Long term (current) use of insulin; Z79.899 Other long term (current) drug therapy; Z88.2 Allergy status to sulfonamides; K21.9 Gastro-esophageal reflux disease without esophagitis; T45.516A Underdosing of anticoagulants, initial encounter; Z91.120 Patient's intentional underdosing of medication regimen due to financial hardship; Z91.14 Patient's other noncompliance with medication regimen; J32.0 Chronic maxillary sinusitis

== ENCOUNTER 2018-08-11 19:23 | Emergency (ER) | payer MEDICARE, MEDICAID ==
[~2018-08-11] VITALS: Ht 167.6 cm; Wt 95.0 kg
[~2018-08-11 19:23] MED LIST changes: -PRIL20TA2 PO; -SUCR1TA PO; -WARF-60 PO
[2018-08-11 20:07] LABS: BASO # 0.1 10^3/uL (0.0-0.2); BASO % 0.6 % (0.0-1.0); EOS # 0.3 10^3/uL (0.0-0.50); EOS % 2.9 % (0.0-3.0); HEMATOCRIT 35.5 % (36.0-47.0); LYMPH # 3.1 10^3/uL (1.5-4.5); LYMPH % 34.6 % (24.0-44.0); MEAN CORPUSCULAR HEMOGLOBIN 30.8 pg (27.0-33.0); MEAN CORPUSCULAR HGB CONC 33.8 g/dl (32.0-36.5); MONO # 0.5 10^3/uL (0.0-0.8); MONO % 6.1 % (0.0-5.0); NEUTROPHILS # 4.9 10^3/uL (1.8-7.7); NEUTROPHILS % 55.1 % (36.0-66.0); PLATELET COUNT, AUTOMATED 237 10^3/uL (150-450); WHITE BLOOD COUNT 8.9 10^3/uL (4.0-10.0)
[2018-08-11 20:21] LABS: INR 1.28; PROTHROMBIN TIME 16.2 SECONDS (12.1-14.4)
[2018-08-11 20:23] LABS: D-DIMER QUANT 1116.74 ng/ml (<500)
[2018-08-11 20:36] LABS: BLOOD UREA NITROGEN 11 MG/DL (7-18); CALCIUM LEVEL 7.9 MG/DL (8.5-10.1); CARBON DIOXIDE LEVEL 24 MEQ/L (21-32); CHLORIDE LEVEL 109 MEQ/L (98-107); CK-MB VALUE MASS < 1.0 NG/ML (<3.6); CPK CREATINE PHOSPHOKINASE 53 U/L (26-192); CREATININE FOR GFR 0.76 MG/DL (0.55-1.30); GLOMERULAR FILTRATION RATE > 60.0 (>51); GLUCOSE, FASTING 122 MG/DL (70-100); MB/CK RELATIVE INDEX 1.89 (< OR =4); NT-PRO BNP 212 PG/ML (<125); POTASSIUM SERUM 4.1 MEQ/L (3.5-5.1); SODIUM LEVEL 140 MEQ/L (136-145); TROPONIN I 0.03 NG/ML (< 0.10)
[2018-08-11] MEDS ORDERED: GI COCKTAIL 50ML BTL(HYOSCYAMINE/MAALOX/LIDOCAINE VISCOUS)(1:3:1) PO ONE (21:00)
[2018-08-11] MEDS ORDERED: PRIL20TA2 PO (22:03)
[2018-08-11] MEDS ORDERED: WARF-60 PO (22:03)
[2018-08-11] MEDS ORDERED: SUCR1TA PO (22:03)
[2018-08-11 22:18] VITALS: BP 108/70
--- NOTE | 2018-08-12 01:06 | REP ---
Clinical: Cough and dyspnea . Comparison: 07/28/2018 . Technique: PA and lateral. Findings: The mediastinum and cardiac silhouette are normal. The lung quintero are clear and without acute consolidation, effusion, or pneumothorax. The skeletal structures are intact and normal. Impression: 1. No acute cardiopulmonary process. Electronically Signed by Dave Us MD 08/12/2018 12:58 A
--- NOTE | 2018-08-12 07:55 | ECGEPIP ---
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
== END 2018-08-11 22:23 | disposition home or self-care (01) ==
LOC: EDBD 19:23 → M ED 19:23
DX: K21.0 Gastro-esophageal reflux disease with esophagitis (principal); E11.9 Type 2 diabetes mellitus without complications; I10 Essential (primary) hypertension; M79.7 Fibromyalgia; E03.9 Hypothyroidism, unspecified; G25.81 Restless legs syndrome; I26.99 Other pulmonary embolism without acute cor pulmonale

== ENCOUNTER → 2018-08-11 | Outpatient (REF) | payer MEDICARE, MEDICAID ==
[~2018-08-11] MED LIST changes: +INSURSD SC; +LOVE1INJ SC; +PRIL20TA2 PO; +SUCR1TA PO; +WARF-23 PO; +WARF-60 PO
[2018-08-11 13:23] LABS: INR 1.34; PROTHROMBIN TIME 16.8 SECONDS (12.1-14.4)
== END ==
LOC: M LAB REF 12:57
PROVIDERS: ATTEND Family Medicine Addiction Medicine
DX: I26.99 Other pulmonary embolism without acute cor pulmonale (principal)

== ENCOUNTER → 2018-08-13 | Outpatient (REF) | payer MEDICARE, MEDICAID ==
[~2018-08-13] MED LIST changes: +PRIL20TA2 PO; +SUCR1TA PO; +WARF-60 PO
[2018-08-13 18:02] LABS: BASO # 0.1 10^3/uL (0.0-0.2); BASO % 0.8 % (0.0-1.0); EOS # 0.2 10^3/uL (0.0-0.50); EOS % 2.4 % (0.0-3.0); HEMATOCRIT 37.5 % (36.0-47.0); HEMOGLOBIN 12.4 g/dl (12.0-15.5); LYMPH # 2.3 10^3/uL (1.5-4.5); LYMPH % 28.9 % (24.0-44.0); MEAN CORPUSCULAR HEMOGLOBIN 30.8 pg (27.0-33.0); MEAN CORPUSCULAR HGB CONC 33.1 g/dl (32.0-36.5); MEAN CORPUSCULAR VOLUME 93.3 fl (80.0-96.0); MONO # 0.4 10^3/uL (0.0-0.8); MONO % 5.3 % (0.0-5.0); NEUTROPHILS # 4.8 10^3/uL (1.8-7.7); NEUTROPHILS % 62.2 % (36.0-66.0); PLATELET COUNT, AUTOMATED 249 10^3/uL (150-450); RED BLOOD COUNT 4.02 10^6/uL (4.00-5.40); WHITE BLOOD COUNT 7.8 10^3/uL (4.0-10.0)
[2018-08-13 18:09] LABS: ALT/SGPT 33 U/L (12-78); BILIRUBIN,TOTAL 0.2 MG/DL (0.2-1.0); BLOOD UREA NITROGEN 9 MG/DL (7-18); CALCIUM LEVEL 7.8 MG/DL (8.5-10.1); CARBON DIOXIDE LEVEL 27 MEQ/L (21-32); CHLORIDE LEVEL 108 MEQ/L (98-107); CHOLESTEROL LEVEL 187 MG/DL (<200); CREATININE FOR GFR 0.85 MG/DL (0.55-1.30); GLOMERULAR FILTRATION RATE > 60.0 (>51); GLUCOSE, FASTING 185 MG/DL (70-100); HDL CHOLESTEROL 34 MG/DL (>40); LDL CHOLESTEROL 121 MG/DL (<100); NON-HDL-C 153 MG/DL; POTASSIUM SERUM 4.2 MEQ/L (3.5-5.1); SODIUM LEVEL 143 MEQ/L (136-145); TOTAL PROTEIN 6.3 GM/DL (6.4-8.2); TRIGLYCERIDES LEVEL 158 MG/DL (<150)
[2018-08-13 18:12] LABS: INR 1.41; PROTHROMBIN TIME 17.5 SECONDS (12.1-14.4)
[2018-08-13 18:26] LABS: HEMOGLOBIN A1c 11.3 %
== END ==
LOC: M LAB REF 17:17
PROVIDERS: ATTEND Family Medicine Addiction Medicine
DX: E11.9 Type 2 diabetes mellitus without complications (principal); E66.9 Obesity, unspecified; I26.99 Other pulmonary embolism without acute cor pulmonale

== ENCOUNTER → 2018-10-29 | Outpatient (REF) | payer MEDICARE, MEDICAID ==
[~2018-10-29] MED LIST changes: -OMEP40CA2 PO; +OMEP40CA97 PO; +SYNT175T2 PO; +VITA500045 PO
[2018-10-29 12:06] LABS: INR 1.1
== END ==
LOC: M LAB REF 11:27
PROVIDERS: ATTEND Nurse Practitioner Family
DX: I26.99 Other pulmonary embolism without acute cor pulmonale (principal)

== ENCOUNTER 2018-12-01 02:33 | Emergency (ER) | payer MEDICARE, MEDICAID ==
[~2018-12-01] VITALS: Ht 162.6 cm; Wt 91.4 kg
[~2018-12-01 02:33] MED LIST changes: +OMEP40CA2 PO; -OMEP40CA97 PO
[2018-12-01 04:05] VITALS: BP 132/71
== END 2018-12-01 04:06 | disposition home or self-care (01) ==
LOC: M ED 02:33
DX: E11.649 Type 2 diabetes mellitus with hypoglycemia without coma (principal); Z79.899 Other long term (current) drug therapy; Z79.890 Hormone replacement therapy; Z79.4 Long term (current) use of insulin; Z79.01 Long term (current) use of anticoagulants; Z88.1 Allergy status to other antibiotic agents; Z88.2 Allergy status to sulfonamides

== ENCOUNTER → 2018-12-07 | Outpatient (CLI) | payer MEDICARE, MEDICAID ==
--- NOTE | 2018-12-10 11:38 | DEXA ---
AP SPINE L1 - L4 1.612 3.4 4.6 LT FEMUR TOTAL 1.054 0.4 1.3 LT NECK 0.904 -1.0 0.3 RT FEMUR TOTAL 1.004 0.0 0.9 RT NECK 0.867 -1.2 0.0 TOTAL BODY TOTAL OTHER COMMENTS: Normal bone densitometry of the spine. There is low bone density of the hips. FOLLOW-UP: Recommendation for the next bone density exam: 2 years. MARÍA
== END ==
LOC: M WHC 13:28
PROVIDERS: ATTEND Nurse Practitioner Family
DX: M25.551 Pain in right hip (principal)

== ENCOUNTER → 2018-12-24 | Outpatient (CLI) | payer MEDICARE, MEDICAID ==
[~2018-12-24] MED LIST changes: -OMEP40CA2 PO; +OMEP40CA97 PO
--- NOTE | 2018-12-25 04:53 | REP ---
Clinical: History of pulmonary embolus . Technique: Quiroga scale and color Doppler evaluation of the bilateral lower extremities using linear high frequency transducer including reflux evaluation Findings: Ultrasound examination of the right and left lower extremity deep venous structures from the common femoral vein to the popliteal vein demonstrates normal compressibility flow and wave patterns in response to respiration and augmentation. There is no evidence for deep venous thrombosis. Reflux evaluation of the right lower extremity demonstrates prior surgical removal of the greater saphenous vein. The anterior accessory vein is identified and measures approximately 13 cm in length with mild reflux and proximal collateral vessel extending into multiple adjacent varicosities. No reflux through the deep venous system noted. Reflux evaluation of the left lower extremity demonstrates reflux through the proximal to mid greater saphenous vein and mild reflux through the anterior accessory vein. Proximal greater saphenous vein measures 6.6 mm diameter with reflux duration 4.8 seconds; the mid greater saphenous vein measures 4.5 mm diameter with reflux duration 4 seconds. No reflux through the deep venous system noted. Impression: 1. No evidence for deep venous thrombosis. 2. Elements of reflux as noted above. Electronically Signed by Dave Us MD 12/25/2018 04:44 A
== END ==
LOC: M RAD 11:49
PROVIDERS: ATTEND Physician Assistant
DX: I26.99 Other pulmonary embolism without acute cor pulmonale (principal); I87.2 Venous insufficiency (chronic) (peripheral)

== ENCOUNTER → 2019-03-23 | Outpatient (REF) | payer MEDICARE, MEDICAID ==
[2019-03-23 19:39] LABS: ALBUMIN 3.4 GM/DL (3.2-5.2); ALT/SGPT 15 U/L (12-78); BILIRUBIN,TOTAL 0.5 MG/DL (0.2-1.0); BLOOD UREA NITROGEN 15 MG/DL (7-18); CALCIUM LEVEL 8.7 MG/DL (8.8-10.2); CARBON DIOXIDE LEVEL 26 MEQ/L (21-32); CHLORIDE LEVEL 106 MEQ/L (98-107); CHOLESTEROL LEVEL 128 MG/DL (<200); CHOLESTEROL RISK RATIO 3.555 (<5); CREATININE FOR GFR 0.87 MG/DL (0.55-1.30); GLOMERULAR FILTRATION RATE > 60.0 (>45); GLUCOSE, FASTING 118 MG/DL (70-100); HDL CHOLESTEROL 36 MG/DL (>40); LDL CHOLESTEROL 70 MG/DL (<100); NON-HDL-C 92 MG/DL; POTASSIUM SERUM 4.1 MEQ/L (3.5-5.1); SODIUM LEVEL 141 MEQ/L (136-145); TOTAL PROTEIN 6.4 GM/DL (6.4-8.2); TRIGLYCERIDES LEVEL 109 MG/DL (<150)
[2019-03-23 19:50] LABS: HEMOGLOBIN A1c 6.7 %
== END ==
LOC: M LAB REF 16:16
PROVIDERS: ATTEND Nurse Practitioner Family
DX: Z00.01 Encounter for general adult medical examination with abnormal findings (principal); Z79.01 Long term (current) use of anticoagulants; Z79.4 Long term (current) use of insulin; Z79.899 Other long term (current) drug therapy

== ENCOUNTER → 2019-04-19 | Outpatient (CLI) | payer MEDICARE, MEDICAID ==
[2019-04-19 11:25] LABS: HEMATOCRIT 43.4 % (36.0-47.0); HEMOGLOBIN 13.3 g/dl (12.0-15.5); MEAN CORPUSCULAR HEMOGLOBIN 26.6 pg (27.0-33.0); MEAN CORPUSCULAR HGB CONC 30.6 g/dl (32.0-36.5); MEAN CORPUSCULAR VOLUME 86.8 fl (80.0-96.0); PLATELET COUNT, AUTOMATED 226 10^3/uL (150-450); WHITE BLOOD COUNT 6.9 10^3/uL (4.0-10.0)
--- NOTE | 2019-04-19 11:33 | REP ---
Clinical: Preoperative assessment . Comparison: 08/11/2018 . Technique: PA and lateral. Findings: The mediastinum and cardiac silhouette are normal. The lung quintero are clear and without acute consolidation, effusion, or pneumothorax. The skeletal structures are intact and normal. Impression: 1. No acute cardiopulmonary process. Electronically Signed by Dave Us MD 04/19/2019 11:25 A
[2019-04-19 11:39] LABS: INR 1.45; PROTHROMBIN TIME 17.4 SECONDS (11.8-14.0)
[2019-04-19 11:51] LABS: ERYTHROCYTE SEDIMENTATION RATE 13 mm/hr (0-30)
[2019-04-19 12:01] LABS: ALBUMIN 3.6 GM/DL (3.2-5.2); ALT/SGPT 18 U/L (12-78); BILIRUBIN,TOTAL 0.4 MG/DL (0.2-1.0); BLOOD UREA NITROGEN 17 MG/DL (7-18); CALCIUM LEVEL 9.2 MG/DL (8.8-10.2); CARBON DIOXIDE LEVEL 29 MEQ/L (21-32); CHLORIDE LEVEL 108 MEQ/L (98-107); CREATININE FOR GFR 0.94 MG/DL (0.55-1.30); GLOMERULAR FILTRATION RATE > 60.0 (>45); GLUCOSE, FASTING 116 MG/DL (70-100); POTASSIUM SERUM 3.7 MEQ/L (3.5-5.1); SODIUM LEVEL 144 MEQ/L (136-145); TOTAL PROTEIN 6.8 GM/DL (6.4-8.2)
--- NOTE | 2019-04-19 12:12 | ECGEPIP ---
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
== END ==
LOC: M RAD 10:38
PROVIDERS: ATTEND Orthopaedic Surgery
DX: M17.11 Unilateral primary osteoarthritis, right knee (principal)

== ENCOUNTER → 2019-11-19 | Outpatient (REF) | payer MEDICARE, MEDICAID ==
[~2019-11-19] MED LIST changes: +PERC5TAB12 PO
[2019-11-19 13:49] LABS: BASO # 0.1 10^3/uL (0.0-0.2); BASO % 0.8 % (0.0-1.0); EOS # 0.2 10^3/uL (0.0-0.5); EOS % 2.5 % (0.0-3.0); HEMATOCRIT 42.3 % (36.0-47.0); HEMOGLOBIN 13.2 g/dl (12.0-15.5); LYMPH # 1.5 10^3/uL (1.5-5.0); LYMPH % 24.1 % (24.0-44.0); MEAN CORPUSCULAR HEMOGLOBIN 27.3 pg (27.0-33.0); MEAN CORPUSCULAR HGB CONC 31.2 g/dl (32.0-36.5); MEAN CORPUSCULAR VOLUME 87.4 fl (80.0-96.0); MONO # 0.4 10^3/uL (0.0-0.8); MONO % 6.4 % (0.0-5.0); NEUTROPHILS % 65.9 % (36.0-66.0); PLATELET COUNT, AUTOMATED 241 10^3/uL (150-450); RED BLOOD COUNT 4.84 10^6/uL (4.00-5.40); WHITE BLOOD COUNT 6.1 10^3/uL (4.0-10.0)
[2019-11-19 13:58] LABS: ALBUMIN 3.5 GM/DL (3.2-5.2); BILIRUBIN,TOTAL 0.5 MG/DL (0.2-1.0); CALCIUM LEVEL 8.8 MG/DL (8.8-10.2); CHOLESTEROL RISK RATIO 4.586 (<5); CREATININE FOR GFR 1.03 MG/DL (0.55-1.30); FREE T4 0.6 NG/DL (0.76-1.46); POTASSIUM SERUM 4.6 MEQ/L (3.5-5.1); THYROID STIMULATING HORMONE 28.2 uIU/ML (0.358-3.740); TOTAL 25(OH) VITAMIN D 24.6 NG/ML (30.0-100.0)
[2019-11-19 15:12] LABS: HEMOGLOBIN A1c 6.7 %
== END ==
LOC: M LAB REF 12:39
PROVIDERS: ATTEND Nurse Practitioner Family
DX: K21.9 Gastro-esophageal reflux disease without esophagitis (principal); G25.81 Restless legs syndrome; E66.9 Obesity, unspecified; E11.9 Type 2 diabetes mellitus without complications; E03.9 Hypothyroidism, unspecified; N18.3 Chronic kidney disease, stage 3 (moderate)

== ENCOUNTER 2019-12-16 19:00 | Emergency (ER) | payer MEDICARE, MEDICAID ==
[~2019-12-16] VITALS: Ht 162.6 cm; Wt 98.0 kg
[~2019-12-16 19:00] MED LIST changes: -PERC5TAB12 PO
[2019-12-16] MEDS ORDERED: MORPHINE 2 MG/ML 1ML VIAL (J2270) IV ONE (19:30)
[2019-12-16 19:50] LABS: BASO % 0.5 % (0.0-1.0); EOS # 0.1 10^3/uL (0.0-0.5); EOS % 0.6 % (0.0-3.0); HEMATOCRIT 39.8 % (36.0-47.0); HEMOGLOBIN 12.6 g/dl (12.0-15.5); LYMPH # 1.4 10^3/uL (1.5-5.0); MEAN CORPUSCULAR HEMOGLOBIN 26.9 pg (27.0-33.0); MEAN CORPUSCULAR HGB CONC 31.7 g/dl (32.0-36.5); MONO # 0.4 10^3/uL (0.0-0.8); MONO % 4.9 % (0.0-5.0); NEUTROPHILS # 6.4 10^3/uL (1.5-8.5); NEUTROPHILS % 76.6 % (36.0-66.0); PLATELET COUNT, AUTOMATED 243 10^3/uL (150-450); RED BLOOD COUNT 4.68 10^6/uL (4.00-5.40); WHITE BLOOD COUNT 8.4 10^3/uL (4.0-10.0)
[2019-12-16 20:07] LABS: INR 1.2; PROTHROMBIN TIME 15.5 SECONDS (12.5-14.3)
[2019-12-16 20:08] LABS: CALCIUM LEVEL 8.9 MG/DL (8.8-10.2); CREATININE FOR GFR 1.02 MG/DL (0.55-1.30); GLOMERULAR FILTRATION RATE 58.7 (>45); PARTIAL THROMBOPLASTIN TIME 30.9 SECONDS (24.2-38.5); POTASSIUM SERUM 3.7 MEQ/L (3.5-5.1)
--- NOTE | 2019-12-16 20:29 | REPVR ---
PROCEDURE INFORMATION: Exam: CT Cervical Spine Without Contrast Exam date and time: 12/16/2019 7:50 PM Age: 59 years old Clinical indication: Injury or trauma; Fall; Blunt trauma TECHNIQUE: Imaging protocol: Computed tomography images of the cervical spine without contrast. Radiation optimization: All CT scans at this facility use at least one of these dose optimization techniques: automated exposure control; mA and/or kV adjustment per patient size (includes targeted exams where dose is matched to clinical indication); or iterative reconstruction. COMPARISON: CT Neck without contrast 04/18/2017 7:51 AM FINDINGS: Vertebrae: There is mild reversal the normal cervical lordosis. No acute fracture or dislocation. Discs/Spinal canal/Neural foramina: There is diffuse degeneration of the uncovertebral and facet joints with resultant neural foraminal narrowing on the left at the C5-C6 level and moderate spinal canal stenosis. No further significant neural foraminal narrowing or spinal canal stenosis in the cervical spine. Soft tissues: No prevertebral soft tissue swelling.. Lungs: Lung apices are unremarkable. IMPRESSION: No acute fracture or dislocation in the cervical spine. There is moderate spinal canal stenosis at the C5-C6 level. Electronically signed by: Meera Lua On 12/16/2019 20:29:15 PM
--- NOTE | 2019-12-16 20:36 | REPVR ---
PROCEDURE INFORMATION: Exam: CT Head Without Contrast Exam date and time: 12/16/2019 7:50 PM Age: 59 years old Clinical indication: Injury or trauma; Fall; Blunt trauma (contusions or hematomas) TECHNIQUE: Imaging protocol: Computed tomography of the head without contrast. Radiation optimization: All CT scans at this facility use at least one of these dose optimization techniques: automated exposure control; mA and/or kV adjustment per patient size (includes targeted exams where dose is matched to clinical indication); or iterative reconstruction. COMPARISON: Thyroid, ST head+neck US 04/04/2017 1:03 PM FINDINGS: Brain: There is no acute cortical infarction, intracranial hemorrhage or mass. Cerebral ventricles: No ventriculomegaly. Bones/joints: Unremarkable. No acute fracture. Paranasal sinuses: Visualized sinuses are unremarkable. No fluid levels. Mastoid air cells: Visualized mastoid air cells are well aerated. Soft tissues: Unremarkable. IMPRESSION: No acute intracranial findings. Electronically signed by: Meera Lua On 12/16/2019 20:35:31 PM
--- NOTE | 2019-12-16 20:41 | REPVR ---
PROCEDURE INFORMATION: Exam: XR Right Ankle Exam date and time: 12/16/2019 7:18 PM Age: 59 years old Clinical indication: Pain; Ankle; Right; Additional info: Trauma TECHNIQUE: Imaging protocol: XR Right ankle. Views: 3 or more views. COMPARISON: CR Foot, complete 07/24/2017 3:46 PM FINDINGS: Bones/joints: Small well-corticated bone fragments along the inferior margins of the medial and lateral malleoli which may be associated with prior trauma. No acute fracture or dislocation identified. There are fixation screws in the foot. Soft tissues: Soft tissue swelling. Calcification in the plantar aponeurosis. IMPRESSION: No acute fracture at the ankle. Electronically signed by: Meera Lua On 12/16/2019 20:40:56 PM
--- NOTE | 2019-12-16 20:49 | REPVR ---
PROCEDURE INFORMATION: Exam: XR Right Hand Exam date and time: 12/16/2019 7:18 PM Age: 59 years old Clinical indication: Pain; Hand; Right; Additional info: Trauma TECHNIQUE: Imaging protocol: XR Right hand. Views: 3 or more views. COMPARISON: CR Wrist, complete RIGHT 12/16/2019 7:59 PM FINDINGS: Bones/joints: There is an intra-articular fracture of the distal radius with dorsal angulation of the distal fracture fragment best seen on the oblique view. Joint space narrowing, marginal osteophyte formation and eburnation of the articular margins are seen in the proximal distal interphalangeal joints most consistent with osteoarthritis. Soft tissues: Soft tissue swelling. IMPRESSION: There is an avulsion fracture of the ulnar aspect of the distal radius which is intra-articular with dorsal angulation of the distal fracture fragment. Electronically signed by: Meera Lua On 12/16/2019 20:49:17 PM
--- NOTE | 2019-12-16 20:51 | REPVR ---
PROCEDURE INFORMATION: Exam: XR Right Wrist Exam date and time: 12/16/2019 7:18 PM Age: 59 years old Clinical indication: Pain; Wrist; Right; Additional info: Trauma TECHNIQUE: Imaging protocol: XR Right wrist. Views: 3 or more views. COMPARISON: No relevant prior studies available. FINDINGS: Bones/joints: There is an impacted intra-articular fracture of the distal radius with a dorsally displaced fracture fragment. The distal ulna appears intact. The carpus appears intact. Soft tissues: Soft tissue swelling. IMPRESSION: There is an impacted mildly dorsally angulated intra-articular fracture of the distal radius. Electronically signed by: Meera Lua On 12/16/2019 20:51:07 PM
--- NOTE | 2019-12-16 20:53 | REPVR ---
PROCEDURE INFORMATION: Exam: XR Right Knee Exam date and time: 12/16/2019 7:18 PM Age: 59 years old Clinical indication: Pain; Knee; Bilateral; Additional info: Trauma TECHNIQUE: Imaging protocol: XR Right knee. Views: 4 or more views. COMPARISON: No relevant prior studies available. FINDINGS: Bones/joints: There is narrowing of the lateral joint compartment greater than medial with marginal osteophyte formation. There is no acute fracture or dislocation. Soft tissues: Soft tissue swelling. 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 PROCEDURE INFORMATION: Exam: XR Left Knee Exam date and time: 12/16/2019 7:18 PM Age: 59 years old Clinical indication: Pain; Knee; Bilateral; Additional info: Trauma TECHNIQUE: Imaging protocol: XR Left knee. Views: 4 or more views. COMPARISON: No relevant prior studies available. FINDINGS: Bones/joints: There is mild narrowing of the medial joint compartment with marginal osteophyte formation. There is also marked narrowing of the patellofemoral compartment. There is no acute fracture or dislocation. Soft tissues: Soft tissue swelling. 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 Electronically signed by: Meera Lua On 12/16/2019 20:53:46 PM
--- NOTE | 2019-12-16 20:57 | REPVR ---
PROCEDURE INFORMATION: Exam: XR Right Forearm Exam date and time: 12/16/2019 7:18 PM Age: 59 years old Clinical indication: Pain; Lower or forearm; Right; Additional info: Trauma TECHNIQUE: Imaging protocol: XR Right forearm. Views: 2 views. COMPARISON: No relevant prior studies available. FINDINGS: Bones/joints: There is a comminuted intra-articular fracture of the distal radius. Soft tissues: Soft tissue swelling. IMPRESSION: There is a comminuted impacted intra-articular fracture of the distal radius. Electronically signed by: Meera Lua On 12/16/2019 20:56:59 PM
--- NOTE | 2019-12-16 21:05 | REPVR ---
PROCEDURE INFORMATION: Exam: XR Right Ribs with PA Chest, 3 Views Exam date and time: 12/16/2019 7:25 PM Age: 59 years old Clinical indication: Chest wall pain; Right; Additional info: Trauma TECHNIQUE: Imaging protocol: XR Right ribs 3 views with PA chest. COMPARISON: No relevant prior studies available. FINDINGS: Lungs: No lung consolidation. Pleural space: No pleural effusion. No pneumothorax. Heart/Mediastinum: No cardiomegaly. Bones/joints: There is degeneration the right acromioclavicular joint. No right rib fractures identified however bone detail is limited due to patient's body habitus. There is a lucency in the right 10th rib which could represent a nondisplaced fracture. Organs: Surgical clips in the gallbladder fossa. IMPRESSION: No definite acute rib fracture is identified. A linear lucency is seen in the right 10th rib on one view only. Electronically signed by: Meera Lua On 12/16/2019 21:05:03 PM
[2019-12-16] MEDS ORDERED: PERC5TAB12 PO (21:54)
[2019-12-16 22:00] VITALS: BP 156/84
== END 2019-12-16 22:39 | disposition home or self-care (01) ==
LOC: EDBD 19:00 → M ED 19:00
DX: S52.601A Unspecified fracture of lower end of right ulna, initial encounter for closed fracture (principal); S22.31XA Fracture of one rib, right side, initial encounter for closed fracture; W10.1XXA Fall (on)(from) sidewalk curb, initial encounter; Y92.480 Sidewalk as the place of occurrence of the external cause; Y93.9 Activity, unspecified; Y99.9 Unspecified external cause status; I10 Essential (primary) hypertension; K21.9 Gastro-esophageal reflux disease without esophagitis; E11.9 Type 2 diabetes mellitus without complications; M79.7 Fibromyalgia; Z79.4 Long term (current) use of insulin; Z79.01 Long term (current) use of anticoagulants; Z79.899 Other long term (current) drug therapy; Z88.1 Allergy status to other antibiotic agents; Z88.2 Allergy status to sulfonamides
CPT/HCPCS: 70450; 71101; 72125; 73090; 73110; 73130; 73564; 73610; 80048; 85025; 85610; 85730; 93041; 94760; 96374; 99285; J2270

== ENCOUNTER → 2019-12-23 | Outpatient (CLI) | payer MEDICARE, MEDICAID ==
[~2019-12-23] MED LIST changes: +PERC5TAB12 PO
== END ==
LOC: M LABSMTC 14:22
PROVIDERS: ATTEND Anesthesiology
DX: Z01.812 Encounter for preprocedural laboratory examination (principal); Z20.828 Contact with and (suspected) exposure to other viral communicable diseases
CPT/HCPCS: C9803; U0003

== ENCOUNTER → 2019-12-25 | Outpatient (CLI) | payer MEDICARE, MEDICAID ==
[2019-12-25 12:29] LABS: HEMATOCRIT 42.6 % (36.0-47.0); HEMOGLOBIN 12.9 g/dl (12.0-15.5); MEAN CORPUSCULAR HEMOGLOBIN 26.4 pg (27.0-33.0); MEAN CORPUSCULAR HGB CONC 30.3 g/dl (32.0-36.5); MEAN CORPUSCULAR VOLUME 87.3 fl (80.0-96.0); PLATELET COUNT, AUTOMATED 254 10^3/uL (150-450); RED BLOOD COUNT 4.88 10^6/uL (4.00-5.40); WHITE BLOOD COUNT 4.9 10^3/uL (4.0-10.0)
[2019-12-25 12:41] LABS: INR 1.01; PROTHROMBIN TIME 13.5 SECONDS (12.5-14.3)
[2019-12-25 12:42] LABS: PARTIAL THROMBOPLASTIN TIME 25.4 SECONDS (24.2-38.5)
[2019-12-25 12:53] LABS: POTASSIUM SERUM 3.8 MEQ/L (3.5-5.1)
== END ==
LOC: M LAB 12:05
PROVIDERS: ATTEND Orthopaedic Surgery Sports Medicine
DX: S52.501D Unspecified fracture of the lower end of right radius, subsequent encounter for closed fracture with routine healing (principal); X58.XXXD Exposure to other specified factors, subsequent encounter; Y92.9 Unspecified place or not applicable

== ENCOUNTER 2019-12-28 11:12 | Day surgery (SDC) | payer MEDICARE, MEDICAID ==
[~2019-12-28] VITALS: Ht 162.6 cm; Wt 96.5 kg
[~2019-12-28 11:12] MED LIST changes: +LR 1,000 ML IV ONE; +ceFAZolin SOD 2 GM in IV 1 EA IV ONE
[2019-12-28] MEDS ORDERED: LIDOCAINE 2% 100MG/5ML SDV (FOR ANES.) As Ordered ONE (13:42)
[2019-12-28] MEDS ORDERED: propofoL 200 MG/20 ML VIAL As Ordered ONE (13:42)
[2019-12-28] MEDS ORDERED: dexameTHASONE 4 MG/ML 1ML VIAL (J1100 PER 1MG) As Ordered ONE (13:42)
[2019-12-28] MEDS ORDERED: ONDANSETRON 4MG/2ML VIAL As Ordered ONE (13:42)
[2019-12-28] MEDS ORDERED: HYDROmorphone HCL 2 MG/ML 1ML VIAL (J1170) As Ordered ONE (13:43)
[2019-12-28] MEDS ORDERED: MIDAZOLAM INJ 2MG/2ML VIAL (J2250 PER 1MG) As Ordered ONE (13:43)
[2019-12-28] MEDS ORDERED: fentaNYL 100 MCG/2 ML INJECTION (J3010) As Ordered ONE ×2 (13:43→18:02)
[2019-12-28] MEDS ORDERED: BUPIVACAINE HCL 0.25% 30ML VIAL As Ordered ONE (15:46)
[2019-12-28] MEDS ORDERED: BUPIVACAINE/EPIN 0.5% 30 ML VIAL As Ordered ONE (15:46)
[2019-12-28] MEDS ORDERED: ACETAMINOPHEN 1000MG 100ML IV BTL (OFIRMEV) (J0131 PER 10MG) As Ordered ONE (16:18)
[2019-12-28] MEDS ORDERED: TRANEXAMIC ACID 100 MG/ML 10ML VIAL As Ordered ONE (17:26)
[2019-12-28] MEDS ORDERED: oxyCODONE 5MG TAB As Ordered ONE (18:02)
[2019-12-28] MEDS: fentaNYL 100 MCG/2 ML INJECTION (J3010) IV PRN ×4 (18:13→18:34)
[2019-12-28] MEDS ORDERED: MORPHINE 2 MG/ML 1ML VIAL (J2270) IV PRN (18:15)
[2019-12-28] MEDS ORDERED: LR 1,000 ML IV SCH ×2 (18:15)
[2019-12-28] MEDS ORDERED: PERCOCET 5MG/325MG TAB PO PRN (18:15)
[2019-12-28] MEDS ORDERED: ONDANSETRON 4MG/2ML VIAL IV PRN ×2 (18:15)
[2019-12-28] MEDS ORDERED: ACETAMINOPHEN TAB 650MG DOSE (2X325MG) PO PRN (18:15)
[2019-12-28] MEDS: oxyCODONE 5MG TAB PO PRN ×2 (18:19→19:05)
[2019-12-28 19:57] VITALS: BP 167/75
--- NOTE | 2019-12-29 06:47 | REP ---
INDICATION: RIGHT DISTAL RADIUS ORIF. COMPARISON: None. TECHNIQUE: Intraoperative fluoroscopic imaging using portable C-arm technique. FINDINGS: Examination demonstrates the patient to be status post satisfactory open reduction and fixation for distal radial fracture. Total fluoroscopic time 1 minutes 9 seconds. IMPRESSION: Status post satisfactory open reduction and fixation for distal radial fracture. <Electronically signed by Dave Us > 12/29/19 0644
--- NOTE | 2019-12-29 14:16 | RO ---
DATE OF OPERATION: 12/28/2019 PREOPERATIVE DIAGNOSIS: Right distal radius fracture. POSTOPERATIVE DIAGNOSIS: Right distal radius fracture. PLANNED PROCEDURE: Right distal radius fracture open reduction internal fixation. PROCEDURE PERFORMED: Right distal radius fracture open reduction internal fixation. SURGEON: Dr. Thomas Norman. BRIDGE SAW OPERATOR: Dr. Chau TYPE OF ANESTHETIC: General anesthetic. PRODUCT SUPPORT MANAGER: Shiloh Saldivar. OPERATIVE PREAMBLE: This 59-year-old female sustained a distal radius lunate facet volar shear fracture. This was recommended for surgery. We talked about the pros, cons, risks, and benefits of open reduction internal fixation of volar facet plate. She wished to proceed. I reiterated the risks in preoperative holding and marked the right upper extremity. OPERATIVE REPORT: Patient was brought to the operating theater and administered general anesthetic. She was then placed supine on the operating room table. Hand table was used for patient's right side. Bed turned to 90 degree angle. SCDs were used on the legs. All bony prominences appropriately padded. Tourniquet was applied to the right upper extremity and appropriately padded. Limb as prepped and draped in the usual sterile fashion with chlorhexidine base prep solution allowing over three minutes prep solution drying time. Prior to the start of the case, 2 grams of IV Ancef was administered. Preoperative time out was performed confirming the site, the patient, and surgery. We began by elevating the tourniquet to 250 mmHg. We made the standard volar FCR approach. I incised the tendon sheath as well as the subsheath in line with the skin incision. Retracted the FCR muscle belly and then made an ulnarly based flap at the pronator quadratus muscle belly. We identified the fracture site and cleared away interposed fracture hematoma and periosteum. We achieved preliminary reduction with direct visualization as well as K wire. I used a Synthes volar ulnar corner hook plate. Placed the guide on bone. Drilled through the two hooks. With the fracture anatomically reduced, on the lateral radiographs and took intraoperative fluoroscopy throughout the case to confirm proper reduction and position of the plate. Placed the shorter hook plate into the distal fragment and secured it down proximally with a cortical screw. This was initially 18 mm long, but I shortened this by 2 mm. I then inserted the rest of the locking screws with the metaphyseal supporting angulated screw as well. Final radiographs were taken and saved on the system. Tourniquet was taken down. The wound was thoroughly irrigated. Subcutaneous tissues were closed with interrupted 2-0 Vicryl and skin with 3-0 Monocryl. The skin was cleaned with wet-to-dry dressing followed by application of Steri-Strips, and 10 mL of 0.25% Marcaine was instilled around the incision site. Adaptic, 4 x 8 gauze, and ABD dressing was then placed and over wrapped with sterile cast padding, and a splint was fashioned circumferentially and over wrapped with sterile 6 inch Breezy bandage. Drapes were removed. The splint was allowed to harden with the hand and forearm in neutral. The patient was awoken from general anesthetic and transferred off the operating room table and taken to the postanesthetic care unit in stable condition. All sponge count and instrument counts were correct. No complications. Estimated blood loss 50 mL. Plan for patient is to be discharged home today according to day surgery criteria. Prescription called in to the pharmacy of choice and follow up in the office in two weeks time to change the cast as well as to check the wound. The executive marketing assistant, Shiloh Saldivar, was instrumental in help to achieving reduction, holding retractors, and completing the case. MARÍA
--- NOTE | 2019-12-31 07:55 | ECGEPIP ---
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 Nonspecific ST/T wave abnormalities No significant change from 04/19/19 Electronically Signed on 12-31-2019 7:54:48 EDT by Jimy Weinstein
== END 2019-12-28 20:35 | disposition home or self-care (01) ==
LOC: M SDC 11:12
PROVIDERS: ATTEND Orthopaedic Surgery Sports Medicine
DX: S52.501A Unspecified fracture of the lower end of right radius, initial encounter for closed fracture (principal); X58.XXXA Exposure to other specified factors, initial encounter; Y92.89 Other specified places as the place of occurrence of the external cause; Y93.9 Activity, unspecified; Y99.9 Unspecified external cause status; E11.9 Type 2 diabetes mellitus without complications; J45.909 Unspecified asthma, uncomplicated; E03.9 Hypothyroidism, unspecified; I10 Essential (primary) hypertension; E78.5 Hyperlipidemia, unspecified; Z79.01 Long term (current) use of anticoagulants; Z79.899 Other long term (current) drug therapy; Z79.84 Long term (current) use of oral hypoglycemic drugs; Z79.4 Long term (current) use of insulin; Z86.711 Personal history of pulmonary embolism; Z86.718 Personal history of other venous thrombosis and embolism
CPT/HCPCS: 25574; 76000; 93005; C1713; J0131; J0690; J1100; J1170; J2250; J2405; J3010

== ENCOUNTER → 2020-02-29 | Outpatient (CLI) | payer MEDICARE, MEDICAID ==
[~2020-02-29] MED LIST changes: -LR 1,000 ML IV ONE; -ceFAZolin SOD 2 GM in IV 1 EA IV ONE
--- NOTE | 2020-02-29 16:38 | REP ---
INDICATION: GEOVANNY DIAG MAMMO/ABSCESS OF BREAST AND NIPPLE; GEOVANNY BREAST AND NIPPLE ABSCESS. COMPARISON: 09/28/2018 as well as other prior exams. TECHNIQUE: MLO and CC views bilateral breasts performed with tomosynthesis. Right retroareolar ultrasound performed. FINDINGS: Very mild scattered fibroglandular tissue is present. Small nodule with adjacent biopsy clip in the upper-outer quadrant of the right breast is stable, as is a small nodule with biopsy clip in the lateral left breast. No new mass or clustered microcalcifications are seen. No architectural distortion. Real-time sonographic evaluation of the right retroareolar region is performed at the site of pain. There is no sonographic evidence of cystic or solid nodule in this region. The Volpara volumetric breast density pattern is A. IMPRESSION: BIRADS/ACR category 2, benign. Stable small nodule in each breast. No new mass or clustered microcalcifications bilaterally. No mammographic or sonographic evidence of mass in the right retroareolar region at the site of pain. This patient's Tyrer-Cuzick lifetime breast cancer risk assessment score is 10.1%. This mammogram was interpreted with the aid of an FDA-approved computer-aided detection system. The patient states she had a clinical breast exam in February 2020. The patient letter being requested is M2. RECOMMENDATION: Repeat screening mammography recommended 1 year (for women over 40). Recommend clinical correlation and follow-up. <Electronically signed by Sudeep Quiroga > 02/29/20 [id number]
== END ==
LOC: M WHC 12:48
PROVIDERS: ATTEND Nurse Practitioner Family
DX: N61.1 Abscess of the breast and nipple (principal); N63.11 Unspecified lump in the right breast, upper outer quadrant; N63.20 Unspecified lump in the left breast, unspecified quadrant
CPT/HCPCS: 76642; 77066; G0279

== ENCOUNTER 2020-03-01 13:54 | Outpatient (RCR) | payer MEDICARE, MEDICAID | END 2020-03-09 | LOC: M PT 13:54 | PROVIDERS: ATTEND Orthopaedic Surgery Sports Medicine | DX: S52.571D Other intraarticular fracture of lower end of right radius, subsequent encounter for closed fracture with routine healing (principal) ==

== ENCOUNTER → 2020-03-16 | Outpatient (REF) | payer MEDICARE, MEDICAID ==
[2020-03-16 17:41] LABS: FREE T4 1.1 NG/DL (0.76-1.46); THYROID STIMULATING HORMONE 13.4 uIU/ML (0.358-3.740)
== END ==
LOC: M LAB REF 16:21
PROVIDERS: ATTEND Nurse Practitioner Family
DX: E03.9 Hypothyroidism, unspecified (principal)

== ENCOUNTER → 2020-03-21 | Outpatient (CLI) | payer MEDICARE, MEDICAID ==
[~2020-03-21] MED LIST changes: -CLIN150C14 PO; +CLIN150C15 PO
--- NOTE | 2020-03-21 20:29 | REP ---
INDICATION: F/U. COMPARISON: 12/16/2019 TECHNIQUE: AP and lateral views of the right wrist FINDINGS: Patient is status post satisfactory open reduction and fixation for distal radial metaphyseal fracture. Callus formation and healing noted. IMPRESSION: Healing fracture of the distal radial metaphysis. <Electronically signed by Dave Us > 03/21/202025
== END ==
LOC: M SOG 13:30
PROVIDERS: ATTEND Orthopaedic Surgery Sports Medicine
DX: S63.682D Other sprain of left thumb, subsequent encounter (principal)

== ENCOUNTER 2020-04-05 13:24 | Outpatient (RCR) | payer MEDICARE, MEDICAID | END 2020-04-09 | LOC: M PT 13:24 | PROVIDERS: ATTEND Orthopaedic Surgery Sports Medicine | DX: S52.571D Other intraarticular fracture of lower end of right radius, subsequent encounter for closed fracture with routine healing (principal); X58.XXXD Exposure to other specified factors, subsequent encounter ==

== ENCOUNTER 2020-05-05 12:49 | Outpatient (RCR) | payer MEDICARE, MEDICAID | END 2020-05-07 | LOC: M PT 12:49 | PROVIDERS: ATTEND Orthopaedic Surgery Sports Medicine | DX: S52.571D Other intraarticular fracture of lower end of right radius, subsequent encounter for closed fracture with routine healing (principal) ==

== ENCOUNTER 2020-06-01 09:32 | Emergency (ER) | payer MEDICARE, MEDICAID ==
[~2020-06-01] VITALS: Ht 162.6 cm; Wt 93.6 kg
[2020-06-01 10:06] LABS: BASO % 0.6 % (0.0-1.0); EOS # 0.3 10^3/uL (0.0-0.5); EOS % 5.2 % (0.0-3.0); HEMATOCRIT 41.4 % (36.0-47.0); HEMOGLOBIN 13.3 g/dl (12.0-15.5); LYMPH # 0.8 10^3/uL (1.5-5.0); LYMPH % 15.5 % (24.0-44.0); MEAN CORPUSCULAR HEMOGLOBIN 27.4 pg (27.0-33.0); MEAN CORPUSCULAR HGB CONC 32.1 g/dl (32.0-36.5); MEAN CORPUSCULAR VOLUME 85.4 fl (80.0-96.0); MONO # 0.6 10^3/uL (0.0-0.8); MONO % 11.1 % (2.0-8.0); NEUTROPHILS # 3.5 10^3/uL (1.5-8.5); NEUTROPHILS % 67.4 % (36.0-66.0); PLATELET COUNT, AUTOMATED 202 10^3/uL (150-450); RED BLOOD COUNT 4.85 10^6/uL (4.00-5.40); WHITE BLOOD COUNT 5.2 10^3/uL (4.0-10.0)
[2020-06-01] MEDS ORDERED: ISOVUE-370 76% 100ML VIAL As Ordered ONE (10:11)
--- NOTE | 2020-06-01 10:23 | REP ---
INDICATION: DYSPNEA/COUGH. COMPARISON: Comparison radiographs are from December 16, 2019. TECHNIQUE: Portable upright AP chest radiograph. FINDINGS: The lungs are exposed at a lesser level of inspiration. No infiltrate is seen. Pleural angles are sharp. Heart size is borderline. Exaggerated by technique. Pulmonary vasculature is not increased. No significant bony abnormality is seen.. IMPRESSION: No active disease. <Electronically signed by Juan Blake > 06/01/20 1023
[2020-06-01 10:38] LABS: ALBUMIN 3.2 GM/DL (3.2-5.2); BILIRUBIN,DIRECT 0.3 MG/DL (0.0-0.2); BILIRUBIN,TOTAL 0.8 MG/DL (0.2-1.0); THYROID STIMULATING HORMONE 3.31 uIU/ML (0.358-3.740); THYROXINE (T4) 12.7 UG/DL (4.5-12.0); TOTAL PROTEIN 6.3 GM/DL (6.4-8.2)
--- NOTE | 2020-06-01 10:51 | REP ---
INDICATION: sudden onset SOB. COMPARISON: 07/28/2018. TECHNIQUE: CT angiogram chest performed following the intravenous administration of 100 cc of Isovue 370. Sagittal and coronal reconstruction images are performed. FINDINGS: Lungs: Clear, no infiltrate or nodule. Mediastinum: No adenopathy. Pulmonary arteries: No evidence of pulmonary embolism. Danni: No adenopathy. Axilla: Multiple lymph nodes are seen in the left axilla which have increased in size since the prior exam. 2 of these are mildly enlarged demonstrating short axis dimension of 1.2 cm and 1.1 cm. Pleura: No effusion. Heart: Not enlarged. Thoracic aorta: No aneurysm or dissection. Upper abdominal structures: Prior cholecystectomy. Visualized osseous structures: There are degenerative changes of the spine without compression deformity. IMPRESSION: No CT evidence of pulmonary embolism. No infiltrate seen. Mild left axillary adenopathy. I suspect these are reactive lymph nodes, possibly from recent vaccination or an inflammatory process. <Electronically signed by Sudeep Quiroga > 06/01/20 1041
[2020-06-01 11:30] VITALS: BP 154/69
--- NOTE | 2020-06-02 01:46 | ECGEPIP ---
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
== END 2020-06-01 12:10 | disposition home or self-care (01) ==
LOC: EDBD 09:32 → M ED 09:32
DX: R06.02 Shortness of breath (principal); T50.Z95A Adverse effect of other vaccines and biological substances, initial encounter; X58.XXXA Exposure to other specified factors, initial encounter; Y92.89 Other specified places as the place of occurrence of the external cause; I10 Essential (primary) hypertension; E11.9 Type 2 diabetes mellitus without complications; E78.5 Hyperlipidemia, unspecified; K21.9 Gastro-esophageal reflux disease without esophagitis; G25.81 Restless legs syndrome; M79.7 Fibromyalgia; Z86.711 Personal history of pulmonary embolism; Z88.2 Allergy status to sulfonamides; Z79.01 Long term (current) use of anticoagulants
CPT/HCPCS: 36415; 71045; 71275; 80047; 80076; 83880; 84436; 84443; 84484; 85025; 93005; 93041; 94760; 99285; Q9967

== ENCOUNTER → 2020-06-07 | Outpatient (RCR) | payer MEDICARE, MEDICAID | LOC: M PT 05-10 12:48 | PROVIDERS: ATTEND Orthopaedic Surgery Sports Medicine | DX: Z47.89 Encounter for other orthopedic aftercare (principal); S52.571D Other intraarticular fracture of lower end of right radius, subsequent encounter for closed fracture with routine healing ==

== ENCOUNTER → 2020-06-09 | Outpatient (REF) | payer MEDICARE, MEDICAID ==
[2020-06-09 13:36] LABS: FREE T4 1.16 NG/DL (0.76-1.46); THYROID STIMULATING HORMONE 6.98 uIU/ML (0.358-3.740)
== END ==
LOC: M LAB REF 12:21
PROVIDERS: ATTEND Nurse Practitioner Family
DX: E03.9 Hypothyroidism, unspecified (principal)

== ENCOUNTER → 2020-11-16 | Outpatient (CLI) | payer MEDICARE, MEDICAID ==
[~2020-11-16] MED LIST changes: -CLIN150C15 PO; +CLIN150C17 PO; +OMEP40CA4 PO; -OMEP40CA97 PO
[2020-11-16 12:01] LABS: HEMATOCRIT 41.4 % (36.0-47.0); HEMOGLOBIN 12.9 g/dl (12.0-15.5); MEAN CORPUSCULAR HEMOGLOBIN 26.3 pg (27.0-33.0); MEAN CORPUSCULAR HGB CONC 31.2 g/dl (32.0-36.5); MEAN CORPUSCULAR VOLUME 84.3 fl (80.0-96.0); PLATELET COUNT, AUTOMATED 265 10^3/uL (150-450); RED BLOOD COUNT 4.91 10^6/uL (4.00-5.40); WHITE BLOOD COUNT 7.6 10^3/uL (4.0-10.0)
[2020-11-16 12:11] LABS: INR 1.13
--- NOTE | 2020-11-16 12:17 | REP ---
INDICATION: PREOP- LAB AND EKG FIRST. COMPARISON: 06/01/2020 TECHNIQUE: PA and lateral FINDINGS: The superior mediastinal structures are midline. The cardiac silhouette is unremarkable in size, shape, and position. The diaphragmatic surfaces of the lungs are regular, and the costophrenic angles are clear. The pulmonary quintero are clear. The imaged osseous structures are intact. IMPRESSION: There is no acute cardiopulmonary disease. <Electronically signed by Hamilton Wray > 11/16/20 [id number]
[2020-11-16 12:56] LABS: ERYTHROCYTE SEDIMENTATION RATE 19 mm/hr (0-30)
[2020-11-16 13:58] LABS: ALBUMIN 3.2 GM/DL (3.2-5.2); ALT/SGPT 23 U/L (12-78); BILIRUBIN,TOTAL 0.5 MG/DL (0.2-1.0); BLOOD UREA NITROGEN 15 MG/DL (7-18); CARBON DIOXIDE LEVEL 29 MEQ/L (21-32); CHLORIDE LEVEL 105 MEQ/L (98-107); CREATININE FOR GFR 0.92 MG/DL (0.55-1.30); GLOMERULAR FILTRATION RATE > 60.0 (>45); GLUCOSE, FASTING 116 MG/DL (70-100); POTASSIUM SERUM 4.3 MEQ/L (3.5-5.1); SODIUM LEVEL 139 MEQ/L (136-145); TOTAL PROTEIN 6.6 GM/DL (6.4-8.2)
--- NOTE | 2020-11-16 22:58 | ECGEPIP ---
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 No remarkable changes Electronically Signed on 11-16-2020 22:58:27 EDT by Edwin Mejia
== END ==
LOC: M LAB 11:16
PROVIDERS: ATTEND Orthopaedic Surgery
DX: Z01.818 Encounter for other preprocedural examination (principal)

== ENCOUNTER 2021-01-03 13:28 | Outpatient (RCR) | payer MEDICARE, MEDICAID | END 2021-01-07 | LOC: M PT 13:28 | PROVIDERS: ATTEND Orthopaedic Surgery | DX: Z96.651 Presence of right artificial knee joint (principal) ==

== ENCOUNTER 2021-01-26 12:45 | Outpatient (RCR) | payer MEDICARE, MEDICAID ==
[2021-04-14] MEDS ORDERED: IRBE75TA4 PO
== END 2021-02-06 ==
LOC: M PT 12:45
PROVIDERS: ATTEND Orthopaedic Surgery
DX: Z96.651 Presence of right artificial knee joint (principal)

== ENCOUNTER 2021-03-07 13:16 | Outpatient (RCR) | payer MEDICARE, MEDICAID | END 2021-03-09 | LOC: M PT 13:16 | PROVIDERS: ATTEND Orthopaedic Surgery | DX: Z96.651 Presence of right artificial knee joint (principal) ==

== ENCOUNTER 2021-03-21 13:06 | Outpatient (RCR) | payer MEDICARE, MEDICAID | END 2021-04-09 | LOC: M PT 13:06 | PROVIDERS: ATTEND Orthopaedic Surgery | DX: Z96.651 Presence of right artificial knee joint (principal) ==

== ENCOUNTER 2021-04-11 10:42 | Emergency (ER) | payer MEDICARE, MEDICAID ==
[~2021-04-11] VITALS: Ht 162.6 cm; Wt 104.5 kg
[2021-04-11] MEDS ORDERED: predniSONE 20 MG TAB PO ONE (11:00)
[2021-04-11] MEDS: COMBIVENT RESPIMAT 100-20MCG INHALER 4GM INH SCH ×3 (11:20→11:42)
[2021-04-11 11:25] LABS: VENOUS BASE EXCESS 1.2 (-2.0-2.0); VENOUS HCO3 26.5 MEQ/L (23.0-27.0); VENOUS O2 SATURATION 61.2 % (60.0-80.0); VENOUS PARTIAL PRESSURE CO2 44.4 mmHg (38.0-50.0); VENOUS PARTIAL PRESSURE O2 34.9 mmHg (30.0-50.0); VENOUS PH 7.393 UNITS (7.330-7.430); VENOUS STANDARD HCO3 24.7 MEQ/L; VENOUS TOTAL CO2 27.8 MEQ/L (24.0-28.0)
[2021-04-11 11:29] LABS: BASO % 0.6 % (0.0-1.0); EOS % 0.6 % (0.0-3.0); HEMATOCRIT 40.6 % (36.0-47.0); HEMOGLOBIN 12.5 g/dl (12.0-15.5); LYMPH # 0.4 10^3/uL (1.5-5.0); LYMPH % 7.1 % (24.0-44.0); MEAN CORPUSCULAR HEMOGLOBIN 24.5 pg (27.0-33.0); MEAN CORPUSCULAR HGB CONC 30.8 g/dl (32.0-36.5); MEAN CORPUSCULAR VOLUME 79.6 fl (80.0-96.0); MONO # 0.2 10^3/uL (0.0-0.8); MONO % 4.8 % (2.0-8.0); NEUTROPHILS # 4.4 10^3/uL (1.5-8.5); NEUTROPHILS % 86.3 % (36.0-66.0); PLATELET COUNT, AUTOMATED 206 10^3/uL (150-450)
[2021-04-11 11:39] LABS: INR 1.16; PROTHROMBIN TIME 15.2 SECONDS (12.7-14.5)
[2021-04-11 12:07] LABS: ALBUMIN 3.2 GM/DL (3.2-5.2); ALT/SGPT 17 U/L (12-78); BILIRUBIN,DIRECT 0.2 MG/DL (0.0-0.2); BILIRUBIN,TOTAL 0.6 MG/DL (0.2-1.0); BLOOD UREA NITROGEN 8 MG/DL (7-18); CALCIUM LEVEL 8.4 MG/DL (8.8-10.2); CARBON DIOXIDE LEVEL 29 MEQ/L (21-32); CHLORIDE LEVEL 105 MEQ/L (98-107); CREATININE FOR GFR 0.93 MG/DL (0.55-1.30); GLOMERULAR FILTRATION RATE > 60.0 (>45); GLUCOSE, FASTING 127 MG/DL (70-100); NT-PRO BNP 316 PG/ML (<125); POTASSIUM SERUM 3.9 MEQ/L (3.5-5.1); SODIUM LEVEL 138 MEQ/L (136-145); TOTAL PROTEIN 6.6 GM/DL (6.4-8.2)
[2021-04-11] MEDS ORDERED: PRED20TA PO (13:12)
[2021-04-11] MEDS ORDERED: EASYMIS17 XX (13:14)
[2021-04-11] MEDS ORDERED: ALB2.5NEB NEB (13:16)
[2021-04-11 14:10] VITALS: BP 167/89
[2021-04-14] MEDS ORDERED: IRBE75TA4 PO
== END 2021-04-11 15:15 | disposition home or self-care (01) ==
LOC: M ED 10:42 → EDBD 10:42 → M ED 15:15
DX: J44.9 Chronic obstructive pulmonary disease, unspecified (principal); U07.1 COVID-19; I45.10 Unspecified right bundle-branch block; E11.9 Type 2 diabetes mellitus without complications; I12.9 Hypertensive chronic kidney disease with stage 1 through stage 4 chronic kidney disease, or unspecified chronic kidney disease; N18.30 Chronic kidney disease, stage 3 unspecified; E78.5 Hyperlipidemia, unspecified; M79.7 Fibromyalgia; E07.9 Disorder of thyroid, unspecified; G25.81 Restless legs syndrome; Z86.711 Personal history of pulmonary embolism; Z88.1 Allergy status to other antibiotic agents; Z88.2 Allergy status to sulfonamides; Z79.899 Other long term (current) drug therapy; Z79.84 Long term (current) use of oral hypoglycemic drugs; Z79.4 Long term (current) use of insulin; Z79.01 Long term (current) use of anticoagulants
CPT/HCPCS: 36415; 71045; 80048; 80076; 82803; 83605; 83880; 84443; 84484; 85025; 85610; 87040; 87798; 93005; 93041; 94640; 99285; J7512

== ENCOUNTER 2021-04-14 22:13 | Inpatient (IN) | payer MEDICARE, MEDICAID ==
[~2021-04-14] VITALS: Ht 162.6 cm; Wt 100.4 kg
[2021-04-14] MEDS: traZODone 50 MG TAB PO SCH (21:00)
[2021-04-14] MEDS: rOPINIRole 0.25 MG TAB(REQUIP) PO SCH (21:00)
[~2021-04-14 22:13] MED LIST changes: +ALB2.5NEB NEB; +EASYMIS17 XX; +IRBE75TA4 PO; +PRED20TA PO
[2021-04-14 23:03] LABS: BASO % 0.2 % (0.0-1.0); HEMATOCRIT 38.8 % (36.0-47.0); HEMOGLOBIN 11.8 g/dl (12.0-15.5); LYMPH # 0.6 10^3/uL (1.5-5.0); LYMPH % 10.2 % (24.0-44.0); MEAN CORPUSCULAR HEMOGLOBIN 24.9 pg (27.0-33.0); MEAN CORPUSCULAR HGB CONC 30.4 g/dl (32.0-36.5); MEAN CORPUSCULAR VOLUME 81.9 fl (80.0-96.0); MONO # 0.4 10^3/uL (0.0-0.8); MONO % 7.2 % (2.0-8.0); NEUTROPHILS # 4.9 10^3/uL (1.5-8.5); NEUTROPHILS % 82.1 % (36.0-66.0); PLATELET COUNT, AUTOMATED 284 10^3/uL (150-450); RED BLOOD COUNT 4.74 10^6/uL (4.00-5.40)
[2021-04-14 23:29] LABS: ALBUMIN 3.1 GM/DL (3.2-5.2); BILIRUBIN,TOTAL 0.2 MG/DL (0.2-1.0); CREATININE FOR GFR 1.33 MG/DL (0.55-1.30); POTASSIUM SERUM 4.1 MEQ/L (3.5-5.1); TOTAL PROTEIN 6.7 GM/DL (6.4-8.2)
[2021-04-14] MEDS ORDERED: PIPERACILLIN/TAZOBACTAM SOD 3.375 GM in D5W MINI-BAG PLUS 50 ML IV ONE (23:55)
[2021-04-14] MEDS ORDERED: OMEP40CA5 PO (23:59)
[2021-04-14] MEDS ORDERED: STEG5TAB PO (23:59)
[2021-04-14] MEDS ORDERED: ATEN100T PO (23:59)
[2021-04-14] MEDS ORDERED: LEVO150T7 PO (23:59)
[2021-04-14] MEDS ORDERED: ATOR40TA75 PO (23:59)
[2021-04-14] MEDS ORDERED: PRED20TA PO (23:59)
[2021-04-15] MEDS ORDERED: INSUHUMDS INJ (00:12)
[2021-04-15] MEDS ORDERED: HOME MED LIST COMPLETE! XX SCH (00:20)
[2021-04-15] MEDS ORDERED: ACETAMINOPHEN TAB 650MG DOSE (2X325MG) PO PRN (01:25)
[2021-04-15] MEDS ORDERED: MAALOX 30 ML SUSP *UDC PO PRN (01:25)
[2021-04-15] MEDS ORDERED: NS 1,000 ML IV ONE (01:25)
[2021-04-15] MEDS ORDERED: MOM 30ML SUSPENSION UDC PO PRN (01:25)
[2021-04-15] MEDS ORDERED: COMBIVENT RESPIMAT 100-20MCG INHALER 4GM INH PRN (01:45)
[2021-04-15 02:08] LABS: C REACTIVE PROTEIN QUANTITATIV 1.26 MG/DL (0.00-0.30)
[2021-04-15 02:19] LABS: ERYTHROCYTE SEDIMENTATION RATE 30 mm/hr (0-30)
[2021-04-15 03:30] VITALS: BP 142/67
[2021-04-15] MEDS: LEVOTHYROXINE 150MCG TABLET (0.15MG) PO SCH (06:23)
[2021-04-15 07:21] LABS: BASO % 0.3 % (0.0-1.0); EOS # 0.1 10^3/uL (0.0-0.5); HEMATOCRIT 36.2 % (36.0-47.0); LYMPH # 1.5 10^3/uL (1.5-5.0); LYMPH % 26.2 % (24.0-44.0); MEAN CORPUSCULAR HEMOGLOBIN 24.7 pg (27.0-33.0); MEAN CORPUSCULAR HGB CONC 30.4 g/dl (32.0-36.5); MEAN CORPUSCULAR VOLUME 81.2 fl (80.0-96.0); MONO # 0.5 10^3/uL (0.0-0.8); MONO % 8.9 % (2.0-8.0); NEUTROPHILS # 3.7 10^3/uL (1.5-8.5); NEUTROPHILS % 63.3 % (36.0-66.0); PLATELET COUNT, AUTOMATED 245 10^3/uL (150-450); RED BLOOD COUNT 4.46 10^6/uL (4.00-5.40); WHITE BLOOD COUNT 5.9 10^3/uL (4.0-10.0)
[2021-04-15 07:33] LABS: INR 1.06; PROTHROMBIN TIME 14.2 SECONDS (12.7-14.5)
[2021-04-15 07:34] LABS: PARTIAL THROMBOPLASTIN TIME 27.7 SECONDS (25.9-37.0)
[2021-04-15 07:37] LABS: D-DIMER QUANT 378.37 ng/ml (<500)
[2021-04-15 08:32] LABS: ALBUMIN 2.7 GM/DL (3.2-5.2); ALT/SGPT 14 U/L (12-78); BILIRUBIN,TOTAL 0.2 MG/DL (0.2-1.0); BLOOD UREA NITROGEN 20 MG/DL (7-18); C REACTIVE PROTEIN QUANTITATIV 0.87 MG/DL (0.00-0.30); CALCIUM LEVEL 8.3 MG/DL (8.8-10.2); CARBON DIOXIDE LEVEL 26 MEQ/L (21-32); CHLORIDE LEVEL 112 MEQ/L (98-107); CREATININE FOR GFR 0.93 MG/DL (0.55-1.30); FERRITIN 35 NG/ML (8-252); GLOMERULAR FILTRATION RATE > 60.0 (>45); GLUCOSE, FASTING 98 MG/DL (70-100); LDH LACTATE DEHYDROGENASE 60 U/L (84-246); POTASSIUM SERUM 3.2 MEQ/L (3.5-5.1); SODIUM LEVEL 146 MEQ/L (136-145); TOTAL PROTEIN 6.3 GM/DL (6.4-8.2)
[2021-04-15] MEDS: APIXABAN 5 MG TAB (ELIQUIS) PO SCH ×2 (08:33→20:30)
[2021-04-15] MEDS: ATORVASTATIN 20 MG TAB PO SCH (08:33)
[2021-04-15] MEDS: OMEPRAZOLE 20MG CAP PO SCH (08:33)
[2021-04-15] MEDS: atenoloL 50 MG TAB PO SCH (08:36)
[2021-04-15] MEDS ORDERED: FLUBLOK(EGG FREE)(QUAD)INFLUENZA VACC 0.5ML SYRINGE 18YRS & OLDER IM ONE (09:00)
[2021-04-15] MEDS ORDERED: predniSONE 20 MG TAB PO SCH (09:00)
[2021-04-15] MEDS: cefTRIAXone SOD 2 GM in D5W MINI-BAG PLUS 50 ML IV SCH (11:23)
[2021-04-15 12:39] VITALS: BP 133/62
[2021-04-15] MEDS ORDERED: REMDESIVIR 200 MG in NS 250 ML IV ONE (13:00)
[2021-04-15] MEDS ORDERED: SODIUM CHLORIDE 0.9% INJ 10 ML SYR IV ONE (15:00)
[2021-04-15 16:03] LABS: MAGNESIUM LEVEL 1.5 MG/DL (1.7-2.2)
[2021-04-15] MEDS ORDERED: DEXTROSE 50% 50 ML SYRINGE IV PRN (20:10)
[2021-04-15] MEDS ORDERED: GLUCOSE 4GM CHEW TABLET PO PRN (20:10)
[2021-04-15] MEDS ORDERED: GLUCAGON INJ 1MG VIAL SC PRN (20:10)
[2021-04-15 20:28] VITALS: BP 122/61
[2021-04-15] MEDS: traZODone 50 MG TAB PO SCH (20:30)
[2021-04-15] MEDS: HumaLOG INSULIN (NovoLOG) PER UNIT SC SCH (20:30)
[2021-04-15] MEDS: rOPINIRole 0.25 MG TAB(REQUIP) PO SCH (20:30)
[2021-04-15] MEDS ORDERED: LEVEMIR (INSULIN DETEMIR) 1 UNITS/0.01ML SC SCH (21:00)
[2021-04-16 04:00] VITALS: BP 127/58
[2021-04-16] MEDS: LEVOTHYROXINE 150MCG TABLET (0.15MG) PO SCH (05:26)
[2021-04-16] MEDS: HumaLOG INSULIN (NovoLOG) PER UNIT SC SCH ×4 (07:30→21:00)
[2021-04-16] MEDS: APIXABAN 5 MG TAB (ELIQUIS) PO SCH ×2 (08:19→21:27)
[2021-04-16] MEDS: OMEPRAZOLE 20MG CAP PO SCH (08:19)
[2021-04-16] MEDS: atenoloL 50 MG TAB PO SCH (08:19)
[2021-04-16] MEDS: ATORVASTATIN 20 MG TAB PO SCH (08:19)
[2021-04-16] MEDS: dexameTHASONE 20MG/5ML VIAL (J1100 PER 1MG) IV SCH (08:20)
[2021-04-16 09:17] LABS: HEMATOCRIT 36.2 % (36.0-47.0); HEMOGLOBIN 10.9 g/dl (12.0-15.5); MEAN CORPUSCULAR HEMOGLOBIN 24.5 pg (27.0-33.0); MEAN CORPUSCULAR HGB CONC 30.1 g/dl (32.0-36.5); MEAN CORPUSCULAR VOLUME 81.3 fl (80.0-96.0); PLATELET COUNT, AUTOMATED 245 10^3/uL (150-450); RED BLOOD COUNT 4.45 10^6/uL (4.00-5.40); WHITE BLOOD COUNT 5.8 10^3/uL (4.0-10.0)
[2021-04-16 09:58] LABS: ALBUMIN 2.7 GM/DL (3.2-5.2); ALT/SGPT 14 U/L (12-78); BILIRUBIN,DIRECT < 0.1 MG/DL (0.0-0.2); BILIRUBIN,TOTAL 0.2 MG/DL (0.2-1.0); BLOOD UREA NITROGEN 22 MG/DL (7-18); CALCIUM LEVEL 8.2 MG/DL (8.8-10.2); CARBON DIOXIDE LEVEL 26 MEQ/L (21-32); CHLORIDE LEVEL 111 MEQ/L (98-107); CREATININE FOR GFR 0.78 MG/DL (0.55-1.30); GLOMERULAR FILTRATION RATE > 60.0 (>45); GLUCOSE, FASTING 70 MG/DL (70-100); POTASSIUM SERUM 2.9 MEQ/L (3.5-5.1); SODIUM LEVEL 146 MEQ/L (136-145); TOTAL PROTEIN 6.2 GM/DL (6.4-8.2)
[2021-04-16] MEDS: POTASSIUM CHLORIDE 10MEQ SR TABLET PO SCH ×3 (11:44→21:26)
[2021-04-16] MEDS: cefTRIAXone SOD 2 GM in D5W MINI-BAG PLUS 50 ML IV SCH (11:44)
[2021-04-16] MEDS: REMDESIVIR 100 MG in NS 250 ML IV SCH (12:53)
[2021-04-16] MEDS: SODIUM CHLORIDE 0.9% INJ 10 ML SYR IV SCH (12:54)
[2021-04-16 14:00] VITALS: BP 129/65
[2021-04-16 19:53] VITALS: BP 128/72
[2021-04-16] MEDS: LEVEMIR (INSULIN DETEMIR) 1 UNITS/0.01ML SC SCH (21:26)
[2021-04-16] MEDS: traZODone 50 MG TAB PO SCH (21:27)
[2021-04-16] MEDS: rOPINIRole 0.25 MG TAB(REQUIP) PO SCH (21:27)
[2021-04-17] MEDS: LEVOTHYROXINE 150MCG TABLET (0.15MG) PO SCH (05:48)
[2021-04-17 05:49] VITALS: BP 149/67
[2021-04-17] MEDS: atenoloL 50 MG TAB PO SCH (07:58)
[2021-04-17] MEDS: dexameTHASONE 20MG/5ML VIAL (J1100 PER 1MG) IV SCH (07:58)
[2021-04-17] MEDS: OMEPRAZOLE 20MG CAP PO SCH (07:58)
[2021-04-17] MEDS: APIXABAN 5 MG TAB (ELIQUIS) PO SCH ×2 (07:58→21:28)
[2021-04-17] MEDS: POTASSIUM CHLORIDE 10MEQ SR TABLET PO SCH (07:59)
[2021-04-17] MEDS: ATORVASTATIN 20 MG TAB PO SCH (07:59)
[2021-04-17] MEDS: HumaLOG INSULIN (NovoLOG) PER UNIT SC SCH ×4 (07:59→21:00)
[2021-04-17 09:57] LABS: HEMATOCRIT 38.1 % (36.0-47.0); HEMOGLOBIN 11.6 g/dl (12.0-15.5); MEAN CORPUSCULAR HEMOGLOBIN 24.6 pg (27.0-33.0); MEAN CORPUSCULAR HGB CONC 30.4 g/dl (32.0-36.5); MEAN CORPUSCULAR VOLUME 80.9 fl (80.0-96.0); PLATELET COUNT, AUTOMATED 283 10^3/uL (150-450); RED BLOOD COUNT 4.71 10^6/uL (4.00-5.40); WHITE BLOOD COUNT 7.3 10^3/uL (4.0-10.0)
[2021-04-17 10:48] LABS: BLOOD UREA NITROGEN 17 MG/DL (7-18); CALCIUM LEVEL 8.8 MG/DL (8.8-10.2); CARBON DIOXIDE LEVEL 24 MEQ/L (21-32); CHLORIDE LEVEL 111 MEQ/L (98-107); GLOMERULAR FILTRATION RATE > 60.0 (>45); GLUCOSE, FASTING 170 MG/DL (70-100); POTASSIUM SERUM 4.5 MEQ/L (3.5-5.1); SODIUM LEVEL 141 MEQ/L (136-145)
[2021-04-17] MEDS: cefTRIAXone SOD 2 GM in D5W MINI-BAG PLUS 50 ML IV SCH (11:37)
[2021-04-17] MEDS: SODIUM CHLORIDE 0.9% INJ 10 ML SYR IV SCH (12:33)
[2021-04-17] MEDS: REMDESIVIR 100 MG in NS 250 ML IV SCH (12:33)
[2021-04-17 14:00] VITALS: BP 143/67
[2021-04-17 19:43] VITALS: BP 133/68
[2021-04-17] MEDS: rOPINIRole 0.25 MG TAB(REQUIP) PO SCH (21:27)
[2021-04-17] MEDS: traZODone 50 MG TAB PO SCH (21:27)
[2021-04-17] MEDS: LEVEMIR (INSULIN DETEMIR) 1 UNITS/0.01ML SC SCH (21:28)
[2021-04-18] MEDS: LEVOTHYROXINE 150MCG TABLET (0.15MG) PO SCH (06:04)
[2021-04-18 06:06] VITALS: BP 126/65
[2021-04-18 07:52] LABS: HEMATOCRIT 38.4 % (36.0-47.0); HEMOGLOBIN 11.8 g/dl (12.0-15.5); MEAN CORPUSCULAR HEMOGLOBIN 24.6 pg (27.0-33.0); MEAN CORPUSCULAR HGB CONC 30.7 g/dl (32.0-36.5); MEAN CORPUSCULAR VOLUME 80.2 fl (80.0-96.0); PLATELET COUNT, AUTOMATED 271 10^3/uL (150-450); RED BLOOD COUNT 4.79 10^6/uL (4.00-5.40); WHITE BLOOD COUNT 6.6 10^3/uL (4.0-10.0)
[2021-04-18 08:18] LABS: BLOOD UREA NITROGEN 17 MG/DL (7-18); CALCIUM LEVEL 8.5 MG/DL (8.8-10.2); CARBON DIOXIDE LEVEL 28 MEQ/L (21-32); CHLORIDE LEVEL 108 MEQ/L (98-107); CREATININE FOR GFR 0.84 MG/DL (0.55-1.30); GLOMERULAR FILTRATION RATE > 60.0 (>45); GLUCOSE, FASTING 110 MG/DL (70-100); POTASSIUM SERUM 4.4 MEQ/L (3.5-5.1); SODIUM LEVEL 143 MEQ/L (136-145)
[2021-04-18] MEDS: dexameTHASONE 20MG/5ML VIAL (J1100 PER 1MG) IV SCH (10:03)
[2021-04-18] MEDS: OMEPRAZOLE 20MG CAP PO SCH (10:04)
[2021-04-18] MEDS: HumaLOG INSULIN (NovoLOG) PER UNIT SC SCH ×4 (10:04→22:02)
[2021-04-18 10:05] VITALS: BP 126/65
[2021-04-18] MEDS: APIXABAN 5 MG TAB (ELIQUIS) PO SCH ×2 (10:05→22:02)
[2021-04-18] MEDS: ATORVASTATIN 20 MG TAB PO SCH (10:05)
[2021-04-18] MEDS: atenoloL 50 MG TAB PO SCH (10:05)
[2021-04-18] MEDS: cefTRIAXone SOD 2 GM in D5W MINI-BAG PLUS 50 ML IV SCH (10:09)
[2021-04-18] MEDS: REMDESIVIR 100 MG in NS 250 ML IV SCH (12:29)
[2021-04-18] MEDS: SODIUM CHLORIDE 0.9% INJ 10 ML SYR IV SCH (12:30)
[2021-04-18 13:54] VITALS: BP 126/66
[2021-04-18 20:00] VITALS: BP 123/61
[2021-04-18] MEDS: traZODone 50 MG TAB PO SCH (22:01)
[2021-04-18] MEDS: rOPINIRole 0.25 MG TAB(REQUIP) PO SCH (22:01)
[2021-04-18] MEDS: LEVEMIR (INSULIN DETEMIR) 1 UNITS/0.01ML SC SCH (22:02)
[2021-04-19 04:00] VITALS: BP 113/57
[2021-04-19] MEDS: LEVOTHYROXINE 150MCG TABLET (0.15MG) PO SCH (05:36)
[2021-04-19 06:35] LABS: HEMATOCRIT 39.5 % (36.0-47.0); HEMOGLOBIN 12.2 g/dl (12.0-15.5); MEAN CORPUSCULAR HEMOGLOBIN 24.5 pg (27.0-33.0); MEAN CORPUSCULAR HGB CONC 30.9 g/dl (32.0-36.5); MEAN CORPUSCULAR VOLUME 79.3 fl (80.0-96.0); PLATELET COUNT, AUTOMATED 315 10^3/uL (150-450); RED BLOOD COUNT 4.98 10^6/uL (4.00-5.40); WHITE BLOOD COUNT 8.7 10^3/uL (4.0-10.0)
[2021-04-19 07:05] LABS: BLOOD UREA NITROGEN 19 MG/DL (7-18); CALCIUM LEVEL 8.7 MG/DL (8.8-10.2); CARBON DIOXIDE LEVEL 26 MEQ/L (21-32); CHLORIDE LEVEL 105 MEQ/L (98-107); CREATININE FOR GFR 0.78 MG/DL (0.55-1.30); GLOMERULAR FILTRATION RATE > 60.0 (>45); GLUCOSE, FASTING 135 MG/DL (70-100); POTASSIUM SERUM 4.1 MEQ/L (3.5-5.1); SODIUM LEVEL 138 MEQ/L (136-145)
[2021-04-19] MEDS: OMEPRAZOLE 20MG CAP PO SCH (08:27)
[2021-04-19] MEDS: atenoloL 50 MG TAB PO SCH (08:28)
[2021-04-19] MEDS: ATORVASTATIN 20 MG TAB PO SCH (08:28)
[2021-04-19] MEDS: HumaLOG INSULIN (NovoLOG) PER UNIT SC SCH ×2 (08:29→12:59)
[2021-04-19] MEDS: dexameTHASONE 20MG/5ML VIAL (J1100 PER 1MG) IV SCH (08:29)
[2021-04-19] MEDS: APIXABAN 5 MG TAB (ELIQUIS) PO SCH (08:29)
[2021-04-19] MEDS: cefTRIAXone SOD 2 GM in D5W MINI-BAG PLUS 50 ML IV SCH (11:30)
[2021-04-19] MEDS ORDERED: PRED10TA2 PO (11:56)
[2021-04-19] MEDS: SODIUM CHLORIDE 0.9% INJ 10 ML SYR IV SCH (12:59)
[2021-04-19] MEDS: REMDESIVIR 100 MG in NS 250 ML IV SCH (12:59)
== END 2021-04-19 15:15 | disposition home health service (06) | DRG 177 ==
LOC: M ED 22:13 → M ED INP 04-15 01:24 → M 4MAIN 04-15 03:20
PROVIDERS: ADMIT Family Medicine; ATTEND Internal Medicine
PROC: XW033E5 Introduction of Remdesivir Anti-infective into Peripheral Vein, Percutaneous Approach, New Technology Group 5 (ICD-10-PCS; 2021-04-15)
PROC: 3E0333Z Introduction of Anti-inflammatory into Peripheral Vein, Percutaneous Approach (ICD-10-PCS; principal; 2021-04-16)
DX: U07.1 COVID-19 (principal); J12.82 Pneumonia due to coronavirus disease 2019; E87.2 Acidosis; N17.9 Acute kidney failure, unspecified; R78.81 Bacteremia; E11.22 Type 2 diabetes mellitus with diabetic chronic kidney disease; Z86.711 Personal history of pulmonary embolism; Z86.718 Personal history of other venous thrombosis and embolism; E03.9 Hypothyroidism, unspecified; I12.9 Hypertensive chronic kidney disease with stage 1 through stage 4 chronic kidney disease, or unspecified chronic kidney disease; N18.30 Chronic kidney disease, stage 3 unspecified; G25.81 Restless legs syndrome; M79.7 Fibromyalgia; K21.9 Gastro-esophageal reflux disease without esophagitis; M50.30 Other cervical disc degeneration, unspecified cervical region; Z79.01 Long term (current) use of anticoagulants; Z79.4 Long term (current) use of insulin; Z79.899 Other long term (current) drug therapy; Z88.2 Allergy status to sulfonamides; H91.93 Unspecified hearing loss, bilateral; E87.6 Hypokalemia

== ENCOUNTER → 2021-06-22 | Outpatient (CLI) | payer MEDICARE, MEDICAID ==
[~2021-06-22] MED LIST changes: +ATEN100T PO; +ATOR40TA75 PO; +INSUHUMDS INJ; +LEVO150T7 PO; +OMEP40CA5 PO; +PRED10TA2 PO; +STEG5TAB PO
== END ==
LOC: M WHC 14:22
PROVIDERS: ATTEND Physician Assistant
DX: Z53.20 Procedure and treatment not carried out because of patient's decision for unspecified reasons (principal)

== ENCOUNTER → 2021-09-14 | Outpatient (CLI) | payer MEDICARE, MEDICAID | LOC: M WHC 10:47 | PROVIDERS: ATTEND Pediatrics | DX: N64.4 Mastodynia (principal) | CPT/HCPCS: 77066; G0279 ==

== ENCOUNTER 2022-01-08 18:00 | Emergency (ER) | payer MEDICARE, MEDICAID ==
[~2022-01-08] VITALS: Ht 162.6 cm; Wt 101.0 kg
[~2022-01-08 18:00] MED LIST changes: -DOXY-350 PO; +DOXY-444 PO
[2022-01-08 19:52] VITALS: BP 168/71
== END 2022-01-08 19:56 | disposition home or self-care (01) ==
LOC: EDBD 18:00 → M ED 18:00
DX: S80.01XA Contusion of right knee, initial encounter (principal); S60.031A Contusion of right middle finger without damage to nail, initial encounter; W01.0XXA Fall on same level from slipping, tripping and stumbling without subsequent striking against object, initial encounter; Y93.89 Activity, other specified; M48.02 Spinal stenosis, cervical region; M50.30 Other cervical disc degeneration, unspecified cervical region; E11.9 Type 2 diabetes mellitus without complications; I12.9 Hypertensive chronic kidney disease with stage 1 through stage 4 chronic kidney disease, or unspecified chronic kidney disease; Z86.718 Personal history of other venous thrombosis and embolism; Z79.01 Long term (current) use of anticoagulants; Z79.899 Other long term (current) drug therapy; Z79.4 Long term (current) use of insulin; Z79.890 Hormone replacement therapy

== ENCOUNTER → 2022-01-23 | Outpatient (REF) | payer MEDICARE, MEDICAID ==
[2022-01-23 19:41] LABS: BASO % 0.5 % (0.0-1.0); EOS # 0.2 10^3/uL (0.0-0.5); EOS % 1.9 % (0.0-3.0); HEMATOCRIT 42.8 % (36.0-47.0); HEMOGLOBIN 12.8 g/dl (12.0-15.5); LYMPH # 2.1 10^3/uL (1.5-5.0); LYMPH % 23.5 % (24.0-44.0); MEAN CORPUSCULAR HEMOGLOBIN 24.6 pg (27.0-33.0); MEAN CORPUSCULAR HGB CONC 29.9 g/dl (32.0-36.5); MEAN CORPUSCULAR VOLUME 82.1 fl (80.0-96.0); MONO # 0.6 10^3/uL (0.0-0.8); MONO % 6.3 % (2.0-8.0); NEUTROPHILS # 5.9 10^3/uL (1.5-8.5); NEUTROPHILS % 67.5 % (36.0-66.0); PLATELET COUNT, AUTOMATED 305 10^3/uL (150-450); RED BLOOD COUNT 5.21 10^6/uL (4.00-5.40); WHITE BLOOD COUNT 8.8 10^3/uL (4.0-10.0)
[2022-01-23 20:27] LABS: ALBUMIN 3.6 G/DL (3.2-5.2); ALT/SGPT 15 U/L (7.0-40); BILIRUBIN,TOTAL 0.6 MG/DL (0.3-1.2); BLOOD UREA NITROGEN 13 MG/DL (9-23); CALCIUM LEVEL 9.4 MG/DL (8.3-10.6); CARBON DIOXIDE LEVEL 27 MMOL/L (20-31); CHLORIDE LEVEL 103 MMOL/L (98-107); CHOLESTEROL LEVEL 138 MG/DL (<200); CHOLESTEROL RISK RATIO 3.68 (<5); CREATININE FOR GFR 0.91 MG/DL (0.55-1.30); GLOMERULAR FILTRATION RATE > 60.0 (>45); GLUCOSE, FASTING 84 MG/DL (74-106); HDL CHOLESTEROL 37.5 MG/DL (>40); LDL CHOLESTEROL 75.5 MG/DL (<100); NON-HDL-C 101 MG/DL; POTASSIUM SERUM 4.2 MMOL/L (3.5-5.1); SODIUM LEVEL 141 MMOL/L (136-145); THYROID STIMULATING HORMONE 3.797 uIU/ML (0.55-4.78); TOTAL PROTEIN 6.4 G/DL (5.7-8.2); TRIGLYCERIDES LEVEL 125 MG/DL (<150)
== END ==
LOC: M LAB REF 17:23
PROVIDERS: ATTEND Pediatrics
DX: E11.9 Type 2 diabetes mellitus without complications (principal); E78.5 Hyperlipidemia, unspecified; E03.9 Hypothyroidism, unspecified

== ENCOUNTER → 2022-02-15 | Outpatient (CLI) | payer MEDICARE, MEDICAID | LOC: M SOG 14:45 | PROVIDERS: ATTEND Physician Assistant | DX: S62.634A Displaced fracture of distal phalanx of right ring finger, initial encounter for closed fracture (principal) ==

== ENCOUNTER → 2022-03-18 | Outpatient (CLI) | payer MEDICARE, MEDICAID | LOC: M SOG 08:09 | PROVIDERS: ATTEND Physician Assistant | DX: S62.632A Displaced fracture of distal phalanx of right middle finger, initial encounter for closed fracture (principal); M19.041 Primary osteoarthritis, right hand ==

== ENCOUNTER → 2022-04-23 | Outpatient (CLI) | payer MEDICARE, MEDICAID | LOC: M SOG 10:47 | PROVIDERS: ATTEND Orthopaedic Surgery Hand Surgery | DX: S62.632D Displaced fracture of distal phalanx of right middle finger, subsequent encounter for fracture with routine healing (principal) ==

== ENCOUNTER → 2022-06-21 | Outpatient (REF) | payer MEDICARE, MEDICAID ==
[2022-06-21 18:37] LABS: BASO # 0.1 10^3/uL (0.0-0.2); BASO % 0.7 % (0.0-1.0); EOS # 0.2 10^3/uL (0.0-0.5); EOS % 1.8 % (0.0-3.0); HEMATOCRIT 42.4 % (36.0-47.0); HEMOGLOBIN 12.6 g/dl (12.0-15.5); LYMPH # 1.9 10^3/uL (1.5-5.0); LYMPH % 18.2 % (24.0-44.0); MEAN CORPUSCULAR HEMOGLOBIN 25.1 pg (27.0-33.0); MEAN CORPUSCULAR HGB CONC 29.7 g/dl (32.0-36.5); MEAN CORPUSCULAR VOLUME 84.6 fl (80.0-96.0); MONO # 0.7 10^3/uL (0.0-0.8); MONO % 6.6 % (2.0-8.0); NEUTROPHILS # 7.7 10^3/uL (1.5-8.5); NEUTROPHILS % 72.4 % (36.0-66.0); PLATELET COUNT, AUTOMATED 329 10^3/uL (150-450); RED BLOOD COUNT 5.01 10^6/uL (4.00-5.40); WHITE BLOOD COUNT 10.6 10^3/uL (4.0-10.0)
[2022-06-21 19:09] LABS: ALBUMIN 3.6 G/DL (3.2-5.2); ALKALINE PHOSPHATASE 161 U/L (46-116); ALT/SGPT 18 U/L (7.0-40); AST/SGOT 17 U/L (<34); BILIRUBIN,TOTAL 0.6 MG/DL (0.3-1.2); BLOOD UREA NITROGEN 11 MG/DL (9-23); CALCIUM LEVEL 9.1 MG/DL (8.3-10.6); CARBON DIOXIDE LEVEL 29 MMOL/L (20-31); CHLORIDE LEVEL 105 MMOL/L (98-107); CHOLESTEROL LEVEL 120 MG/DL (<200); CHOLESTEROL RISK RATIO 3.02 (<5); CREATININE FOR GFR 0.86 MG/DL (0.55-1.30); GLOMERULAR FILTRATION RATE > 60.0 (>45); GLUCOSE, FASTING 125 MG/DL (74-106); HDL CHOLESTEROL 39.7 MG/DL (>40); HEMOGLOBIN A1c 6.6 % (4.0-6.0); LDL CHOLESTEROL 59.7 MG/DL (<100); NON-HDL-C 80.3 MG/DL; POTASSIUM SERUM 3.9 MMOL/L (3.5-5.1); SODIUM LEVEL 142 MMOL/L (136-145); THYROID STIMULATING HORMONE 3.333 uIU/ML (0.55-4.78); TOTAL PROTEIN 6.8 G/DL (5.7-8.2); TRIGLYCERIDES LEVEL 103 MG/DL (<150)
== END ==
LOC: M LAB REF 16:22
PROVIDERS: ATTEND Pediatrics
DX: Z79.4 Long term (current) use of insulin (principal); E03.9 Hypothyroidism, unspecified; E78.5 Hyperlipidemia, unspecified

== ENCOUNTER → 2022-08-06 | Outpatient (CLI) | payer MEDICARE, MEDICAID | LOC: M WHC 13:20 | PROVIDERS: ATTEND Pediatrics | DX: Z13.820 Encounter for screening for osteoporosis (principal) ==

== ENCOUNTER → 2022-09-18 | Outpatient (CLI) | payer MEDICARE, MEDICAID ==
[~2022-09-18] MED LIST changes: -ROPI0.253 PO; +ROPI5TAB19 PO
== END ==
LOC: M WHC 12:47
PROVIDERS: ATTEND Pediatrics
DX: Z12.31 Encounter for screening mammogram for malignant neoplasm of breast (principal)

== ENCOUNTER → 2022-11-20 | Outpatient (REF) | payer MEDICARE, MEDICAID ==
[2022-11-20 18:11] LABS: HEMOGLOBIN A1c 6.6 % (4.0-6.0)
[2022-11-20 18:14] LABS: THYROID STIMULATING HORMONE 1.996 uIU/ML (0.55-4.78)
[2022-11-20 18:15] LABS: TOTAL 25(OH) VITAMIN D 24.4 NG/ML (20.0-100.0)
== END ==
LOC: M LAB REF 16:42
PROVIDERS: ATTEND Pediatrics
DX: E55.9 Vitamin D deficiency, unspecified (principal); E11.65 Type 2 diabetes mellitus with hyperglycemia; E66.9 Obesity, unspecified; E03.9 Hypothyroidism, unspecified; K21.9 Gastro-esophageal reflux disease without esophagitis; I10 Essential (primary) hypertension; Z79.899 Other long term (current) drug therapy

== ENCOUNTER → 2023-05-05 | Outpatient (REF) | payer MEDICARE, MEDICAID ==
[~2023-05-05] MED LIST changes: +INSU100V19 SC; -INSURSD SC; +IRBE75TA11 PO; -IRBE75TA4 PO
[2023-05-05 17:28] LABS: HEMOGLOBIN A1c 6.6 % (4.0-6.0)
[2023-05-05 17:34] LABS: BLOOD UREA NITROGEN 11 MG/DL (9-23); CALCIUM LEVEL 9.1 MG/DL (8.3-10.6); CARBON DIOXIDE LEVEL 30 MMOL/L (20-31); CHLORIDE LEVEL 107 MMOL/L (98-107); CHOLESTEROL LEVEL 127 MG/DL (<200); CHOLESTEROL RISK RATIO 4.12 (<5); CREATININE FOR GFR 0.76 MG/DL (0.55-1.30); GLOMERULAR FILTRATION RATE > 60.0 (>45); GLUCOSE, FASTING 76 MG/DL (74-106); HDL CHOLESTEROL 30.8 MG/DL (>40); NON-HDL-C 96.2 MG/DL; POTASSIUM SERUM 3.9 MMOL/L (3.5-5.1); SODIUM LEVEL 139 MMOL/L (136-145); TRIGLYCERIDES LEVEL 111 MG/DL (<150)
[2023-05-05 17:38] LABS: THYROID STIMULATING HORMONE 2.257 uIU/ML (0.55-4.78)
== END ==
LOC: M LAB REF 16:38
PROVIDERS: ATTEND Pediatrics
DX: I10 Essential (primary) hypertension (principal); E78.5 Hyperlipidemia, unspecified; E03.9 Hypothyroidism, unspecified; Z79.4 Long term (current) use of insulin

== ENCOUNTER → 2023-09-15 | Outpatient (REF) | payer MEDICARE, MEDICAID ==
[~2023-09-15] MED LIST changes: +DOXY-440 PO; -DOXY-444 PO
[2023-09-15 17:47] LABS: BASO # 0.1 10^3/uL (0.0-0.2); BASO % 0.8 % (0.0-1.0); EOS # 0.1 10^3/uL (0.0-0.5); HEMATOCRIT 39.7 % (36.0-47.0); LYMPH # 1.9 10^3/uL (1.5-5.0); LYMPH % 28.8 % (24.0-44.0); MEAN CORPUSCULAR HGB CONC 30.2 g/dl (32.0-36.5); MEAN CORPUSCULAR VOLUME 85.9 fl (80.0-96.0); MONO # 0.4 10^3/uL (0.0-0.8); NEUTROPHILS # 4.1 10^3/uL (1.5-8.5); NEUTROPHILS % 62.2 % (36.0-66.0); PLATELET COUNT, AUTOMATED 252 10^3/uL (150-450); RED BLOOD COUNT 4.62 10^6/uL (4.00-5.40); WHITE BLOOD COUNT 6.6 10^3/uL (4.0-10.0)
[2023-09-15 17:53] LABS: THYROID STIMULATING HORMONE 11.607 uIU/ML (0.55-4.78)
[2023-09-15 17:55] LABS: ALBUMIN 3.2 G/DL (3.2-5.2); ALKALINE PHOSPHATASE 102 U/L (46-116); ALT/SGPT 20 U/L (7.0-40); AST/SGOT 13 U/L (<34); BILIRUBIN,TOTAL 0.5 MG/DL (0.3-1.2); BLOOD UREA NITROGEN 12 MG/DL (9-23); CALCIUM LEVEL 9.4 MG/DL (8.3-10.6); CARBON DIOXIDE LEVEL 27 MMOL/L (20-31); CHLORIDE LEVEL 110 MMOL/L (98-107); CREATININE FOR GFR 0.82 MG/DL (0.55-1.30); GLOMERULAR FILTRATION RATE > 60.0 (>45); GLUCOSE, FASTING 148 MG/DL (74-106); POTASSIUM SERUM 4.5 MMOL/L (3.5-5.1); SODIUM LEVEL 142 MMOL/L (136-145)
[2023-09-15 18:43] LABS: HEMOGLOBIN A1c 6.5 % (4.0-6.0)
== END ==
LOC: M LAB REF 16:38
PROVIDERS: ATTEND Pediatrics
DX: E03.9 Hypothyroidism, unspecified (principal); E11.69 Type 2 diabetes mellitus with other specified complication

== ENCOUNTER → 2023-09-19 | Outpatient (CLI) | payer MEDICARE, MEDICAID | LOC: M RAD 11:30 | PROVIDERS: ATTEND Pediatrics | DX: I73.9 Peripheral vascular disease, unspecified (principal) ==

== ENCOUNTER → 2023-09-24 | Outpatient (CLI) | payer MEDICARE, MEDICAID | LOC: M WHC 14:13 | PROVIDERS: ATTEND Pediatrics | DX: Z12.31 Encounter for screening mammogram for malignant neoplasm of breast (principal); Z53.9 Procedure and treatment not carried out, unspecified reason ==

== ENCOUNTER → 2023-10-01 | Outpatient (CLI) | payer MEDICARE, MEDICAID | LOC: M WHC 15:26 | PROVIDERS: ATTEND Pediatrics | DX: Z12.31 Encounter for screening mammogram for malignant neoplasm of breast (principal) ==

== ENCOUNTER → 2023-10-16 | Outpatient (CLI) | payer MEDICARE, MEDICAID | LOC: M PLAIMG 13:52 | PROVIDERS: ATTEND Pediatrics | DX: M47.816 Spondylosis without myelopathy or radiculopathy, lumbar region (principal); M48.061 Spinal stenosis, lumbar region without neurogenic claudication; I73.9 Peripheral vascular disease, unspecified ==

== ENCOUNTER 2024-02-16 10:00 | Outpatient (RCR) | payer MEDICARE, MEDICAID | END 2024-03-09 | LOC: M PT 10:00 | PROVIDERS: ATTEND Student in an Organized Health Care Education/Training Program | DX: M48.061 Spinal stenosis, lumbar region without neurogenic claudication (principal) ==

== ENCOUNTER → 2024-05-07 | Outpatient (REF) | payer MEDICARE, MEDICAID ==
[2024-05-07 13:37] LABS: CREATININE, URINE 139.9 MG/DL; MAU/CREAT RATIO 7.8 MCG/MG (0.0-30.0)
[2024-05-07 18:31] LABS: BLOOD UREA NITROGEN 13 MG/DL (9-23); CALCIUM LEVEL 9.5 MG/DL (8.3-10.6); CARBON DIOXIDE LEVEL 27 MMOL/L (20-31); CHLORIDE LEVEL 107 MMOL/L (98-107); GLOMERULAR FILTRATION RATE > 60.0 (>45); GLUCOSE, FASTING 181 MG/DL (74-106); POTASSIUM SERUM 4.7 MMOL/L (3.5-5.1); SODIUM LEVEL 144 MMOL/L (136-145)
[2024-05-07 18:33] LABS: THYROID STIMULATING HORMONE 24.813 uIU/ML (0.55-4.78)
== END ==
LOC: M LAB REF 12:40
PROVIDERS: ATTEND Pediatrics
DX: E11.69 Type 2 diabetes mellitus with other specified complication (principal); E03.9 Hypothyroidism, unspecified; I10 Essential (primary) hypertension

== ENCOUNTER 2024-06-02 13:08 | Outpatient (RCR) | payer MEDICARE, MEDICAID | END 2024-06-07 | LOC: M PT 13:08 | PROVIDERS: ATTEND Student in an Organized Health Care Education/Training Program | DX: M48.061 Spinal stenosis, lumbar region without neurogenic claudication (principal); M47.896 Other spondylosis, lumbar region; M54.30 Sciatica, unspecified side ==

== ENCOUNTER 2024-06-09 12:58 | Outpatient (RCR) | payer MEDICARE, MEDICAID | END 2024-07-07 | LOC: M PT 12:58 | PROVIDERS: ATTEND Student in an Organized Health Care Education/Training Program | DX: M48.061 Spinal stenosis, lumbar region without neurogenic claudication (principal); M54.30 Sciatica, unspecified side; M47.896 Other spondylosis, lumbar region ==

== ENCOUNTER → 2024-11-30 | Outpatient (CLI) | payer MEDICARE, MEDICAID | LOC: M WHC 13:15 | PROVIDERS: ATTEND Pediatrics | DX: N64.4 Mastodynia (principal); R92.313 Mammographic fatty tissue density, bilateral breasts | CPT/HCPCS: 77066; G0279 ==